=== PATIENT | female | born 1945 | race Caucasian/White ===

== ENCOUNTER 2017-11-04 14:45 | Emergency (ER) | payer MEDICARE, SELFPAY ==
[2017-11-04 14:46] VITALS: BP 154/92; PULSE 77; RESP 16; TEMP 36.6; O2SAT 98; BMI 28.7
--- NOTE | 2017-11-04 14:58 | RAD_ITS ---
STUDY: X-RAY - THORACIC SPINE REASON FOR EXAM: Female, 72 years old. Pain following a fall. TECHNIQUE: 4 view(s) of the thoracic spine were obtained. COMPARISON: None. FINDINGS: Normal kyphosis of the thoracic spine. There is no substantial scoliosis. Normal thoracic vertebrae and endplates. There is multilevel disc space narrowing of the thoracic spine. The soft tissue structures are unremarkable. RAD/Thoracic Spine 3 Views IMPRESSION: Multilevel disc space narrowing. No evidence of acute compression fracture. Electronically Signed: Hosea Ram MD at 15:49 EDT Tel [phone], Service support ,
--- NOTE | 2017-11-04 14:58 | ED.VISSUMM ---
- ER Visit Summary Date of Service: 11/04/17 Chief Complaint: Fall History of Present Illness: The patient is a 72 F presenting after fall. Patient states she was reaching up to fill a bird feeder and she fell backwards. She landed on her lower back. She denies hitting her head. Denies loss of consciousness. She complains of low back pain. She has been able to ambulate since the fall. She denies other complaints. Physical Examination: Vitals are stable. Patient is afebrile. Alert no acute distress. HEENT exam is unremarkable. Neck is nontender Lungs are clear and equal bilaterally. Heart is regular rate and rhythm. Abdomen is soft nontender nondistended. Back: thoracic and lumbar diffuse tenderness with no step off Extremities are unremarkable. Skin is warm and dry. No focal neurologic deficit. Remainder of exam is unremarkable. Emergency Department Course and Treatment: Xray of thoracic and lumbar spine show no acute process. Patient was given Tylenol. She is advised to follow-up with her primary care physician. Advised return to ED for worsening complaints. Disposition: Discharge home Impression: Thoracic and lumbar strain status post fall This note was generated with [employer] dictation software. It may contain incorrect words, spelling, and punctuation that were not noted in review of the chart prior to signing ED Disposition - Plan for ED Patient: Disposition: Home or Assisted Living Chief Complaint: Fall Instructions: ED Mechanical Fall Referrals: Jarek Alvarez MD [Primary Care Provider] -
--- NOTE | 2017-11-04 15:21 | RAD_ITS ---
STUDY: X-RAY - LUMBAR SPINE REASON FOR EXAM: Female, 72 years old. Pain following a fall. TECHNIQUE: 3 view(s) of the lumbar spine were obtained. COMPARISON: None FINDINGS: Normal lumbar lordosis. There is a levoscoliosis of the lumbar spine. There is a normal alignment of the vertebrae. There is multilevel endplate spondylosis of the lumbar vertebrae. There is multi-level degenerative disc disease with multi-level disc space narrowing. Facet joint osteoarthritis. There is atherosclerotic calcification of the abdominal aorta without a demonstrated aneurysm. RAD/Lumbar Spine 2 or 3 Views IMPRESSION: Degenerative changes of the spine, as detailed above. Electronically Signed: Hosea Ram MD at 15:49 EDT Tel [phone], Service support ,
--- NOTE | 2017-11-04 15:59 | ED.DEP ---
ED Disposition - Plan for ED Patient: Chief Complaint: Fall Instructions: ED Mechanical Fall Referrals: Jarek Alvarez MD [Primary Care Provider] -
[2017-11-04] MEDS: Acetaminophen 500 MG Tablet 1000 MG PO (16:29)
[2017-11-04 16:32] VITALS: BP 157/89; PULSE 81; RESP 20; O2SAT 100
== END 2017-11-04 16:46 | disposition home or self-care (01) ==
PROVIDERS: Emergency Provider Emergency Medicine; Family Provider Family Medicine; PCP Family Medicine
DX: S29.012A Strain of muscle and tendon of back wall of thorax, initial encounter (principal); S39.012A Strain of muscle, fascia and tendon of lower back, initial encounter; W18.30XA Fall on same level, unspecified, initial encounter; Y93.89 Activity, other specified; Y92.008 Other place in unspecified non-institutional (private) residence as the place of occurrence of the external cause; Y99.8 Other external cause status
CPT/HCPCS: 72072; 72100; 99283

== ENCOUNTER 2017-11-06 09:37 | Inpatient (IN) | payer MEDICARE, SELFPAY ==
[2017-11-06 09:38] VITALS: BP 127/88; PULSE 101; RESP 16; TEMP 36.6; BMI 29.9
--- NOTE | 2017-11-06 10:22 | CT_ITS ---
STUDY: CT LUMBAR SPINE WITHOUT CONTRAST REASON FOR EXAM: Female, 72 years old. FALL 2 DAYS AGO, BACK PAIN, LOSS OF BLADDER CONTROL, NAUSEA, WEAKNESS RADIATION DOSAGE (If Supplied By Facility): CTDIvol = ( 17.42 ) mGy, DLP = ( 471.33 ) mGycm TECHNIQUE: The patient was scanned in a multi detector CT scanner. High resolution transaxial imaging was performed. Images were obtained from to . Sagittal and coronal images were reconstructed. Individualized dose optimization techniques were used for this CT. COMPARISON: None FINDINGS: There is straightening of the normal lumbar lordosis. There is moderate anterior endplate depression at T12 with cortical step-off and minimal paraspinal infiltration, consistent with acute fracture. There is minimal retropulsion of the inferior posterior endplate without significant central canal stenosis. There is multilevel endplate spondylosis of the lumbar vertebrae. There is multi-level degenerative disc disease with multi-level disc space narrowing. Findings are most prominent at L2/L3 with severe disc space narrowing and endplate spondylosis. CT/Spine Lumbar without Contrast IMPRESSION: Acute moderate fracture at T12 with minimal retropulsion. Further evaluation with MRI can be obtained. Electronically Signed: Ru Del Rosario MD at 11:54 EDT Tel , Service support ,
[2017-11-06 10:31] LABS: Absolute Lymphocyte Count 1.35 X10^3/ul (0.83-4.51); Basophil# 0.05 X10^3/uL; Basophil% 0.4 % (0-1); Eosinophil# 0.06 X10^3/uL; Eosinophils% 0.5 % (0-5); Hematocrit 45.3 % (37-47); Hemoglobin 15.5 g/dl (12.0-15.0); Lymphocyte # 1.35 X10^3/ul (4.0); Lymphocyte % 11.2 % (19-41); Mean Corp Hgb Conc 34.2 g/gl (32-36); Mean Corpuscular Hgb 29.8 pg (27.0-32.0); Mean Corpuscular Volume 87.1 fL (81-99); Mean Platelet Vol. 9.5 fl (6.2-12.0); Monocyte# 1.47 X10^3/uL; Monocyte% 12.2 % (0-10); POSITIVE COUNT NO; POSITIVE DIFFERENTIAL NO; POSITIVE MORPHOLOGY NO; Platelet Count 400 K/mm3 (150-450); RBC Distribution Width CV 14.4 % (11.6-14.6); RBC Distribution Width SD 45.9 fl (35.1-43.9)
[2017-11-06] MEDS: 0.9% Normal Saline 1,000 ML 1000 ML IV (10:39)
[2017-11-06] MEDS: proMETHazine 25 MG/ML Syringe 6.25 MG IV (10:39)
[2017-11-06] MEDS: Morphine 4 MG/ML Syringe IV (10:39)
[2017-11-06 10:41] LABS: Anion Gap 10 (5-15); BUN 19 mg/dL (7-18); BUN/Creat Ratio 20.4 RATIO (10-20); Calcium,Total 9.2 mg/dL (8.5-10.1); Chloride 103 mmol/L (98-107); Creatinine, Serum 0.93 mg/dL (0.55-1.02); EST Glomerular Filtration Rate 63 mL/min (>60); Est Glom Filt Rate - Afr Amer 76 mL/min (>60); Glucose 105 mg/dL (74-106); Potassium 3.4 mmol/L (3.5-5.1); Sodium Level 138 mmol/L (136-145)
[2017-11-06 10:47] LABS: Red Blood Cells-Urine 0 SEEN /hpf (0-5); Squamous Epithelial Cells - UA 0 SEEN /hpf (5-10)
[2017-11-06 10:49] LABS: Color, Urine Yellow (Yellow); Glucose, Dipstick Normal (Normal); Ketone-Dipstick 50 mg/dl (Negative); Leukocyte Esterase-Dipstick 100 /ul (Negative); Nitrite-Dipstick Negative (Negative); Occult Blood-Urine 10 /ul (Negative); Protein-Dipstick 15 mg/dl (Negative); Urine Bilirubin Dipstick Negative (Negative); Urine Clarity Sl. Cloudy (Clear); Urine Urobilinogen Normal (Normal)
[2017-11-06 10:55] LABS: Bacteria 1+ /hpf (None Seen); Hyaline Cast 0-5 SEEN /lpf (0-5); Mucous, Urine RARE /hpf (<or=2+); White Blood Cells 0-5 SEEN /hpf (0-5)
[2017-11-06 12:30] VITALS: BP 143/94; PULSE 93; RESP 16; O2SAT 94
--- NOTE | 2017-11-06 12:46 | ED.VISSUMM ---
- ER Visit Summary Date of Service: 11/06/17 Chief Complaint: [] Back pain History of Present Illness: The patient is a 72 F [] complaining of back pain. She was reportedly seen in this emergency department 2 days ago after mechanical fall. She struck her low back and denies hitting her head. She had negative thoracic and lumbar x-rays and was discharged home with instructions to take Tylenol for pain. She reports pain has worsened in the last 2 days. She reports difficulty ambulating. She reports the pain has gotten so bad she is had significant decrease in p.o. intake and feels dehydrated. She reports Tylenol is not improving her pain. She denies headache or neck pain and reports that she did not hit her head during her fall. She denies saddle anesthesia or incontinence. She is reporting increased urgency to urinate. Denies fecal incontinence. Physical Examination: [] Afebrile, vital signs stable. Elderly female in no acute distress. Head is normocephalic, atraumatic. Neck exam shows no midline C-spine tenderness or step-off. Cardiovascular exam is regular rate and rhythm. Lungs are clear to auscultation. Abdomen is soft and nontender. Back exam reveals thoracic and lumbosacral tenderness in the midline without step-off. Pelvis is stable. There is no lower extremity edema or injury. Test Results: [] CBC, BMP are within normal limits. Urinalysis is negative. CT of the lumbosacral spine reveals a T12 fracture acutely with slight fragment retropulsion. Emergency Department Course and Treatment: [] She was given morphine, Phenergan, normal saline bolus for symptom relief. On serial exam she had improvement of symptoms however was still complaining of discomfort and difficulty with ambulation. She was able to ambulate with assistance to provide us a urine specimen. Case discussed with the hospitalist who will admit the patient for further evaluation and likely MRI. Treatment Plan: [] Admission to medical floor. Disposition: [] Admission, stable. Impression: [] Acute thoracic spinal fracture This note was generated with [employer] dictation software. It may contain incorrect words, spelling, and punctuation that were not noted in review of the chart prior to signing ED Disposition - Plan for ED Patient: Chief Complaint: Back Referrals: Jarek Alvarez MD [Primary Care Provider] -
[2017-11-06 13:54] VITALS: BP 141/92; PULSE 95; RESP 16; O2SAT 96
[2017-11-06 14:00] VITALS: BP 141/92; PULSE 95; RESP 16; O2SAT 96
--- NOTE | 2017-11-06 14:00 | CASEMGMT ---
Social Work Note In to complete initial assessment as pt will be admitted. Introduced self and role at [facility]. The pt reports to live alone in a two-story home with a flight of stairs to the bedroom and bathroom on the second level. States that she typically does not have access issues, but does now with her back injury. Reports to have been crawling up her steps the last few days. DME consists of a walker, cane and shower chair which she obtained after a R Hip Replacement in 2010. She does not use this equipment at baseline. Pt reports to be independent with care and still drives. Does not have any family that lives locally, but has two friends, Madelyn and Shar Salomon, who she identifies as her primary supports. Pt denies mental health diagnoses, and denies substance abuse. She has been at [facility] following her hip surgery. At this time she is unsure of discharge needs. Made aware that PT/OT will evaluate on the floor and RN CM or SW will assist with safe discharge planning. Crystal Tyler, NURSING SPECIALIST, SPORTS BOOK WRITER
[2017-11-06 14:15] VITALS: BMI 28.8
[2017-11-06 14:24] VITALS: BP 155/102; PULSE 87; RESP 16; TEMP 36.8; O2SAT 95
--- NOTE | 2017-11-06 14:44 | PCA ---
Spoke with Selam at Dr. Alvarez's office, [facility] regarding pt updated med list. Selam stated she will fax one over.
--- NOTE | 2017-11-06 14:45 | PCM.HP.STD ---
Problem List (1) Compression fracture Status: Acute (2) Debility Status: Chronic (3) HTN (hypertension) Status: Chronic (4) Osteopenia Status: Acute History of Present Illness Date of Admission: 11/06/17 Chief Complaint: Back pain The patient is a 72 year old F with a hx of osteopenia and htn who presented to the ER today for back pain since falling on friday, 2 days ago. She states that she was in her backyard and lost balance, falling backwards, flat onto her back. She described a breaking sensation and developed severe 10/10 midline back pain over the mid-low back. She came to the ER and had xrays which did not find a fracture and was sent home and instructed only to take tylenol. This did not work and her back pain worsened. She was able to ambulate with a cane, and is still able to. She denies foot or leg weakness, and has no numbness or tingling. Her symptoms became unbearable and she returned to the ER today. She had a CT of the lumbar spine which demonstrated a T12 compression fracture. She does have a hx of osteopenia confirmed by a prior dexa scan. She takes vitamin D and calcium. She was recently treated with steroids by her orthopod last week for right sided lumbar radiculitis. This is no longer present and she denies any radicular pain from her lower back into her legs. She has not moved her bowels in several days.[] Past Medical History Past Medical History (Chronic Problems): Chronic Problems Debility (Chronic) HTN (hypertension) (Chronic) Allergies oxycodone [From Percocet] Adverse Reaction (Verified 11/06/17 09:42) Upset Stomach sulfamethoxazole [From Bactrim] Adverse Reaction (Verified 11/06/17 09:42) Upset Stomach trimethoprim [From Bactrim] Adverse Reaction (Verified 11/06/17 09:42) Upset Stomach Home Medications: Ambulatory Orders Medication Instructions Recorded Docusate Sodium [Stool Softener] 50 mg PO QHS 11/06/17 Lisinopril/Hydrochlorothiazide 1 each PO DAILY 11/06/17 [Zestoretic 20-12.5 mg Tablet] Psyllium [Metamucil] 1 packet PO DAILY 11/06/17 Surgical History: hysterectomy, total hip arthroplasty - right, tonsillectomy Psychiatric History: No pertinent psych hx 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 Denies: Abdominal Pain, Nausea, Vomiting Genitourinary: Denies: Dysuria Musculoskeletal: Reports: Back Pain. Denies: Joint Pain, Joint Tenderness Skin: Denies: Rash, Wounds Neurological: Denies: Numbness, Tingling, Focal weakness Psychiatric: Denies: Anxiety, Depression, Homicidal Ideations, Suicidal Ideations Hematologic/ Lymphatic: Denies: Easy Bruising, Easy Bleeding VTE Information - Inpt Only VTE Present on Admission: No VTE Mechan Device Prophylaxis: SCD's VTE Pharm Prophylaxis ordered?: Yes Patient Problems: Active and Suspected Problems Compression fracture (Acute) Osteopenia (Acute) - Physical Exam General: Alert, Oriented x3, Cooperative HEENT: Atraumatic, PERRLA, EOMI, Normocephalic Neck: Supple, No JVD, Negative Carotid Bruits Lungs: Clear to auscultation, Normal air movement Cardiovascular: Regular rate, No murmurs Abdomen: Bowel Sounds Present, Soft, Non Tender Extremities: No edema, Capillary Refill Less than 3 Seconds Skin: No rashes, No breakdown Musculoskeletal: No Tenderness to Palpation of Joints or Extremities, Tenderness - mid back Neurological: Cranial nerves II-XII grossly intact, - - no numbness or tingling BL legs, feet Psych/Mental Status: Normal Affect, Appropriate Vital Signs Temp Pulse Resp BP Pulse Ox 98.2 F 87 16 155/102 H 95 11/06/17 14:24 11/06/17 14:24 11/06/17 14:24 11/06/17 14:24 11/06/17 14:24 Oxygen Delivery Method Room Air Weight: 64.6 kg Body Mass Index (BMI) 28.8 Assessment/Plan Active and Suspected Problems Compression fracture (Acute) Osteopenia (Acute) 1. Acute T12 compression fracture 2/2 mechanical fall 2 days prior also complicated by hx of osteopenia - PTOT, pain control. Will advise outpatient follow up with Dr. Cage for possible kyphoplasty. Continue VitD/Calcium. Check Vit D level to see if dose is appropriate. Prior Dexa - I do not see a record of this in our system - defer to PCP. 2. Debility 2/2 above - she is still able to ambulate. PTOT for home going needs. 3. Hypokalemia - mild, receiving 2L IV ringers with 10meq K each, check AM BMP. 4. Constipation - added prn meds. Will likely worsen with opiates. 5. HTN - Lisinopril. 6. Mild dehydration - hold hctz. Fluids as ordered. 7. Mild leukocytosis - likely 2/2 acute stress response, will recheck CBC in AM. I doubt any infectious etiology. UA is borderline. She did have one episode of incontinence due to not being able to get out of bed quickly from the back pain, but denies dysuria. 8. GERD - PPI DVT ppx: SCDs/Heparin DC planning: depending on her ability to work with PTOT This patient was seen by Joseph Mitchell PA-C under the supervision of Doctor Ruiz.
[2017-11-06 14:46] VITALS: BMI 28.8
[2017-11-06] MEDS: Acetaminophen 500 MG Tablet 1000 MG PO ×2 (16:36→22:13)
[2017-11-06] MEDS: 0.9% NaCl Peripheral Flush Adult/Peds IV (16:37)
[2017-11-06] MEDS: Calcium Carb/Vitamin D 1 TABLET Tablet PO (22:13)
[2017-11-06] MEDS: Psyllium 1 PACKET PO (22:14)
[2017-11-06 22:24] VITALS: BP 110/58; PULSE 95; RESP 18; TEMP 37.2; O2SAT 95
[2017-11-07 02:00] VITALS: BP 143/89; PULSE 75; RESP 16; TEMP 36.6; O2SAT 94
[2017-11-07] MEDS: Acetaminophen 500 MG Tablet 1000 MG PO ×3 (05:23→22:31)
[2017-11-07 07:42] LABS: Absolute Lymphocyte Count 2.26 X10^3/ul (0.83-4.51); Absolute Neutrophil Count 4.5 X10^3/uL (2.0-7.7); Basophil# 0.04 X10^3/uL; Basophil% 0.5 % (0-1); Eosinophil# 0.13 X10^3/uL; Eosinophils% 1.6 % (0-5); Hematocrit 39.5 % (37-47); Hemoglobin 13.6 g/dl (12.0-15.0); Lymphocyte # 2.26 X10^3/ul (4.0); Lymphocyte % 27.5 % (19-41); Mean Corp Hgb Conc 34.4 g/gl (32-36); Mean Corpuscular Hgb 30.2 pg (27.0-32.0); Mean Corpuscular Volume 87.8 fL (81-99); Mean Platelet Vol. 9.6 fl (6.2-12.0); Monocyte# 1.23 X10^3/uL; Neutrophil # 4.46 X10^3/uL (2.7-7.7); Neutrophil % 54.2 % (47-70); POSITIVE COUNT NO; POSITIVE DIFFERENTIAL NO; POSITIVE MORPHOLOGY NO; Platelet Count 349 K/mm3 (150-450); RBC Distribution Width CV 14.8 % (11.6-14.6); RBC Distribution Width SD 47.2 fl (35.1-43.9); White Blood Count 8.2 K/mm3 (4.4-11.0)
[2017-11-07 08:12] LABS: Anion Gap 8 (5-15); BUN 15 mg/dL (7-18); BUN/Creat Ratio 18.9 RATIO (10-20); Calcium,Total 8.4 mg/dL (8.5-10.1); Chloride 107 mmol/L (98-107); Creatinine, Serum 0.79 mg/dL (0.55-1.02); EST Glomerular Filtration Rate 76 mL/min (>60); Est Glom Filt Rate - Afr Amer 92 mL/min (>60); Estimated Creatinine Clearance 52.62 ml/min; Glucose 84 mg/dL (74-106); Potassium 4.1 mmol/L (3.5-5.1); Sodium Level 140 mmol/L (136-145)
[2017-11-07 09:21] VITALS: BP 143/90; PULSE 87; RESP 18; TEMP 36.6; O2SAT 95
[2017-11-07] MEDS: Pantoprazole Sodium 20 MG Tablet PO (09:26)
[2017-11-07] MEDS: Senna/Docusate Sodium 1 Tablet PO (09:26)
[2017-11-07] MEDS: Magnesium Hydroxide 30 ML UDC PO (09:26)
[2017-11-07] MEDS: Multivitamins,Ther W-Minerals Tablet 1 TABLET PO (09:26)
[2017-11-07] MEDS: Calcium Carb/Vitamin D 1 TABLET Tablet PO ×2 (09:27→22:32)
[2017-11-07] MEDS: Lisinopril 20 MG Tablet PO (09:27)
[2017-11-07] MEDS: oxyCODONE 5 MG Tablet PO ×3 (10:20→18:23)
[2017-11-07 11:57] LABS: Vitamin D,25 Hydroxy 33.2 ng/mL (29.95-100.01)
[2017-11-07] MEDS: Polyethylene Glycol 3350 17 GM PACKET PO (12:18)
--- NOTE | 2017-11-07 12:52 | PCM.PROGNOTE ---
Patient Problems: Active and Suspected Problems Compression fracture (Acute) Osteopenia (Acute) Subjective: Back pain severe 8/10 this AM, however patient was trying to only take tylenol. She has been up in the chair and has had significant relief since this AM. She is agreeable to kyphoplasty. No weakness or numbness LE. Pain is still centralized over the spine. Still no BM and pt is requesting additional agent for constipation. - Physical Exam General: Alert, Oriented x3, Cooperative HEENT: Atraumatic, PERRLA, EOMI, Normocephalic Neck: Supple, No JVD, Negative Carotid Bruits Lungs: Clear to auscultation, Normal air movement Cardiovascular: Regular rate, No murmurs Abdomen: Bowel Sounds Present, Soft, Non Tender Extremities: No edema, Capillary Refill Less than 3 Seconds Skin: No rashes, No breakdown Musculoskeletal: No Tenderness to Palpation of Joints or Extremities Neurological: Cranial nerves II-XII grossly intact Psych/Mental Status: Normal Affect, Appropriate, Alert and oriented to time, place, person, mood and affect Vital Signs Temp Pulse Resp BP Pulse Ox 97.8 F 87 18 143/90 H 95 11/07/17 09:21 11/07/17 09:21 11/07/17 09:21 11/07/17 09:21 11/07/17 09:21 Oxygen Delivery Method Room Air Weight: 64.6 kg Body Mass Index (BMI) 28.8 Intake and Output for Last 24 Hours 11/05/17 11/06/17 11/07/17 23:59 23:59 23:59 Intake Total 3425 / 3425 Output Total 700 / 700 Balance 2725 / 2725 Laboratory Tests Past 24 Hrs 11/06/17 11/07/17 11/07/17 15:07 07:20 07:20 WBC 8.2 RBC 4.50 Hgb 13.6 Hct 39.5 MCV 87.8 MCH 30.2 MCHC 34.4 RDW 14.8 H RDW Differential 47.2 H Plt Count 349 MPV 9.6 Immature Gran % (Auto) 1.200 H Neut % (Auto) 54.2 Lymph % (Auto) 27.5 [place] % (Auto) 15.0 H Eos % (Auto) 1.6 Baso % (Auto) 0.5 Absolute Neuts (auto) 4.5 Absolute Lymphs (auto) 2.26 Total Counted Not Reportable Sodium 140 Potassium 4.1 Chloride 107 Carbon Dioxide 25.0 Anion Gap 8 BUN 15 Creatinine 0.79 Estim Creat Clear Calc 52.62 Est GFR (MDRD) Af Amer 92 Est GFR (MDRD) Non-Af 76 BUN/Creatinine Ratio 18.9 Glucose 84 Calcium 8.4 L Vitamin D 25-Hydroxy 33.2 Medical Necessity - Tobacco Use Smoking Status: Former smoker Tobacco Use: Non-smoker Assessment/Plan Active and Suspected Problems Compression fracture (Acute) Osteopenia (Acute) 1. Acute T12 compression fracture 2/2 mechanical fall 2 days prior also complicated by hx of osteopenia - Dr. Cage has been consulted and she will have Kyphoplasty Friday. PTOT, pain control. Will advise outpatient follow up with Dr. Cage for possible kyphoplasty. Continue VitD/Calcium. Check Vit D level to see if dose is appropriate. Prior Dexa - I do not see a record of this in our system - defer to PCP. 2. Debility 2/2 above - she is still able to ambulate. PTOT for home going needs. 3. Hypokalemia - mild, receiving 2L IV ringers with 10meq K each, check AM BMP. 4. Constipation - Still no BM. Chronic, will likely worsen with opiates. 5. HTN - Lisinopril. 6. Mild dehydration - improved. 7. Mild leukocytosis - likely 2/2 acute stress response. Resolved. 8. GERD - PPI DVT ppx: SCDs/Heparin DC planning: depending on her ability to work with PTOT This patient was seen by Joseph Mitchell PA-C under the supervision of Doctor Ruiz.
[2017-11-07] MEDS: Meloxicam 15 MG Tablet PO (13:38)
[2017-11-07] MEDS: Bisacodyl 10 MG Suppository RECTAL (15:47)
[2017-11-07 15:59] VITALS: BP 106/70; PULSE 79; RESP 16; TEMP 36.6; O2SAT 94
[2017-11-07 22:38] VITALS: BP 146/89; PULSE 80; RESP 18; TEMP 36.6; O2SAT 93
[2017-11-08 02:46] VITALS: BP 157/84; PULSE 75; RESP 18; TEMP 36.7; O2SAT 94
[2017-11-08] MEDS: Acetaminophen 500 MG Tablet 1000 MG PO ×3 (05:49→22:20)
[2017-11-08] MEDS: Multivitamins,Ther W-Minerals Tablet 1 TABLET PO (08:12)
[2017-11-08] MEDS: Meloxicam 15 MG Tablet PO (08:13)
[2017-11-08] MEDS: Calcium Carb/Vitamin D 1 TABLET Tablet PO ×2 (08:13→22:20)
[2017-11-08] MEDS: Polyethylene Glycol 3350 17 GM PACKET PO (08:13)
[2017-11-08] MEDS: Lisinopril 20 MG Tablet PO ×2 (08:13→12:22)
[2017-11-08 08:45] VITALS: BP 160/100; PULSE 68; RESP 18; TEMP 36.9; O2SAT 93
[2017-11-08] MEDS: oxyCODONE 5 MG Tablet PO ×2 (09:00→17:56)
[2017-11-08] MEDS: Ondansetron 4 MG/2 ML Vial IV (09:02)
--- NOTE | 2017-11-08 13:38 | PCM.PROGNOTE ---
Patient Problems: Active and Suspected Problems Compression fracture (Acute) Osteopenia (Acute) Subjective: Pt ambulating in the [facility] this AM with PT and a walker. Doing well. Pain has improved to 2/10. Still no numbness/tingling/radicular pain/weakness. She still has had no BM with multiple orals and suppository, and feels very constipated. Will try soap suds enema today. - Physical Exam General: Alert, Oriented x3, Cooperative HEENT: Atraumatic, PERRLA, EOMI, Normocephalic Neck: Supple, No JVD, Negative Carotid Bruits Lungs: Clear to auscultation, Normal air movement Cardiovascular: Regular rate, No murmurs Abdomen: Bowel Sounds Present, Soft, Non Tender Extremities: No edema, Capillary Refill Less than 3 Seconds Skin: No rashes, No breakdown Musculoskeletal: No Tenderness to Palpation of Joints or Extremities Neurological: Cranial nerves II-XII grossly intact Psych/Mental Status: Normal Affect, Appropriate, Alert and oriented to time, place, person, mood and affect Vital Signs Temp Pulse Resp BP Pulse Ox 98.4 F 68 18 160/100 H 93 11/08/17 08:45 11/08/17 08:45 11/08/17 08:45 11/08/17 08:45 11/08/17 08:45 Oxygen Delivery Method Room Air Weight: 64.6 kg Body Mass Index (BMI) 28.8 Intake and Output for Last 24 Hours 11/06/17 11/07/17 11/08/17 23:59 23:59 23:59 Intake Total 3425 / 3425 1877 / 1877 Output Total 700 / 700 600 / 600 Balance 2725 / 2725 1277 / 1277 Medical Necessity - Tobacco Use Smoking Status: Former smoker Tobacco Use: Non-smoker Assessment/Plan Active and Suspected Problems Compression fracture (Acute) Osteopenia (Acute) 1. Acute T12 compression fracture 2/2 mechanical fall 2 days prior also complicated by hx of osteopenia - Dr. Cage has been consulted and she will have Kyphoplasty Friday. PTOT, pain control. Continue VitD/Calcium. Vit D level is on low side of normal. Should have outpatient follow up to assess therapeutic efficacy. 2. Debility 2/2 above - ambulating well. Plans to return home by herself. PTOT for home going needs. 3. Hypokalemia - resolved. 4. Constipation - Still no BM. Chronic. Continue current orals + soap suds today. Good bowel sounds. + flatus. 5. HTN - poorly controlled. Lisinopril increased. 6. GERD - PPI DVT ppx: SCDs/Heparin DC planning: ambulating well. Wants to go home by herself. This patient was seen by Joseph Mitchell PA-C under the supervision of Doctor Ruiz.
[2017-11-08 16:00] VITALS: BP 90/50; PULSE 70; RESP 18; TEMP 36.9; O2SAT 94
[2017-11-08 22:00] VITALS: BP 123/56; PULSE 74; RESP 16; TEMP 36.9; O2SAT 93
[2017-11-09 03:32] VITALS: BP 158/87; PULSE 74; RESP 16; TEMP 36.6; O2SAT 94
[2017-11-09] MEDS: Acetaminophen 500 MG Tablet 1000 MG PO ×3 (06:45→21:35)
[2017-11-09] MEDS: Multivitamins,Ther W-Minerals Tablet 1 TABLET PO (08:20)
[2017-11-09 08:21] VITALS: BP 155/85; PULSE 77; RESP 18; TEMP 36.8; O2SAT 93
[2017-11-09] MEDS: Lisinopril 40 MG Tablet PO (10:56)
[2017-11-09] MEDS: Meloxicam 15 MG Tablet PO (10:56)
[2017-11-09] MEDS: Calcium Carb/Vitamin D 1 TABLET Tablet PO ×2 (10:56→21:34)
[2017-11-09] MEDS: Polyethylene Glycol 3350 17 GM PACKET PO (11:00)
--- NOTE | 2017-11-09 11:11 | NURSING ---
Verified with denise Lombardo for pt to have Mobic today. Administered per order.
[2017-11-09] MEDS: Electrolyte Solution/Peg's 4000 ML 2000 ML PO (12:53)
[2017-11-09] MEDS: oxyCODONE 5 MG Tablet PO (12:59)
[2017-11-09 14:00] VITALS: BP 153/83; PULSE 78; RESP 16; TEMP 36.4; O2SAT 94
--- NOTE | 2017-11-09 14:43 | PCM.PROGNOTE ---
Patient Problems: Active and Suspected Problems Compression fracture (Acute) Osteopenia (Acute) Subjective: Pts pain is stable. Did not ambulate today as of this morning but did well yesterday. She is still agreeable to kyphoplasty tomorrow. Still no BM. Starting golytely today. No nausea or vomiting this AM. - Physical Exam General: Alert, Oriented x3, Cooperative HEENT: Atraumatic, PERRLA, EOMI, Normocephalic Neck: Supple, No JVD, Negative Carotid Bruits Lungs: Clear to auscultation, Normal air movement Cardiovascular: Regular rate, No murmurs Abdomen: Soft, Non Tender, Bowel Sounds Not Present Extremities: No edema, Capillary Refill Less than 3 Seconds Skin: No rashes, No breakdown Musculoskeletal: No Tenderness to Palpation of Joints or Extremities Neurological: Cranial nerves II-XII grossly intact Psych/Mental Status: Normal Affect, Appropriate, Alert and oriented to time, place, person, mood and affect Vital Signs Temp Pulse Resp BP Pulse Ox 98.2 F 77 18 155/85 H 93 11/09/17 08:21 11/09/17 08:21 11/09/17 08:21 11/09/17 08:21 11/09/17 08:21 Oxygen Delivery Method Room Air Weight: 64.6 kg Body Mass Index (BMI) 28.8 Intake and Output for Last 24 Hours 11/07/17 11/08/17 11/09/17 23:59 23:59 23:59 Intake Total 3425 / 3425 1877 / 1877 1007 / 1007 Output Total 700 / 700 900 / 900 1400 / 1400 Balance 2725 / 2725 977 / 977 -393 / -393 Medical Necessity - Tobacco Use Smoking Status: Former smoker Tobacco Use: Non-smoker Assessment/Plan Active and Suspected Problems Compression fracture (Acute) Osteopenia (Acute) 1. Acute T12 compression fracture 2/2 mechanical fall 2 days prior also complicated by hx of osteopenia - Dr. Cage has been consulted and she will have Kyphoplasty tomorrow. PTOT, pain control. Continue VitD/Calcium. Vit D level is on low side of normal. Should have outpatient follow up to assess therapeutic efficacy. 2. Debility 2/2 above - ambulating well. Plans to return home by herself. PTOT for home going needs. 3. Hypokalemia - resolved. 4. Constipation - Still no BM. G[place]teley until 3 BM's. Continue other regimen. 5. HTN - Lisinopril was increased. BP fluctuant. 6. GERD - PPI DVT ppx: SCDs/Heparin DC planning: ambulating well. Wants to go home by herself. This patient was seen by Joseph Mitchell PA-C under the supervision of Doctor Ruiz.
--- NOTE | 2017-11-09 15:18 | NURSING ---
Pt started Golytely around 1300. Pt tolerating well so far. Per Dr Ruiz, continue to give the prep until pt has 3-4 bowel movements. No results yet.
[2017-11-09] MEDS: Ondansetron 4 MG/2 ML Vial IV (18:17)
[2017-11-09] MEDS: 0.9% NaCl Peripheral Flush Adult/Peds IV (18:17)
--- NOTE | 2017-11-09 19:45 | NURSING ---
pt on assessment was in severe pain, rating it a 10/10. lower abd pain that radiated to the upper mid abd/chest area with pain to the upper back between her shoulders. pt is very anxious thinking she is having a heart attack. pt was given zofran per the other shift an hour earlier, still is c/o nausea. states she is miserable. call placed to the hospitalist, kub, ekg, labs, and meds ordered.
[2017-11-09 20:00] VITALS: BP 154/99; PULSE 89; RESP 16; TEMP 36.6; O2SAT 94
--- NOTE | 2017-11-09 20:13 | RAD_ITS ---
STUDY: X-RAY - ABDOMEN/PELVIS REASON FOR EXAM: Female, 72 years old. Constipation. Lower abdominal pain TECHNIQUE: AP supine and upright views of the abdomen and pelvis. COMPARISON: None. FINDINGS: Normal visualized lung bases. There is a moderate amount of colonic fecal material. There is no demonstrated free abdominal air. The visualized liver, spleen and kidneys are grossly normal in size and morphology. Normal soft tissue structures. There are diffuse degenerative changes of the visualized lumbar spine. RAD/Abd Decub and/or Erect(Portabl IMPRESSION: There is a moderate amount of colonic fecal material. Electronically Signed: Alina Hebert MD at 1:14 EDT Tel , Service support ,
--- NOTE | 2017-11-09 20:13 | EKG12_ITS ---
Test Reason : Blood Pressure : / mmHG Vent. Rate : 089 BPM Atrial Rate : 089 BPM P-R Int : 150 ms QRS Dur : 090 ms QT Int : 362 ms P-R-T Axes : 044 261 010 degrees QTc Int : 440 ms Normal sinus rhythm Right ventricular hypertrophy with repolarization abnormality Abnormal ECG When compared with ECG of 15-MAR-2013 11:50, No significant change was found Confirmed by ZAHIDA RAMÍREZ, STEFANO ([id number]), film editor supervisor DARIUS MEDEL ([id number]) on 11/18/2017 3:28:57 PM Referred By: Confirmed By:STEFANO TEAGUE MD
[2017-11-09] MEDS: proMETHazine 25 MG/ML Syringe 6.25 MG IV (21:03)
[2017-11-09] MEDS: 0.9% Normal Saline 1,000 ML 75 ML IV (21:04)
[2017-11-09] MEDS: LORazepam 2 MG/ML Syringe 0.5 MG IV (21:19)
[2017-11-09] MEDS: Pantoprazole Sodium 20 MG Tablet PO (21:34)
[2017-11-09 22:00] VITALS: PULSE 89; RESP 16
[2017-11-10] VITALS (11 sets, daily range): BP systolic 94–157; BP diastolic 53–91; PULSE 80–99; RESP 16–20; TEMP 36.3–36.9; O2SAT 87–99; BMI 31.1; BMI 28.8
[2017-11-10] MEDS: 0.9% NaCl Peripheral Flush Adult/Peds IV ×3 (02:34→10:46)
[2017-11-10] MEDS: Ondansetron 4 MG/2 ML Vial IV (02:34)
[2017-11-10] MEDS: proMETHazine 25 MG/ML Syringe 6.25 MG IV ×2 (05:54→10:46)
[2017-11-10 06:29] LABS: Partial Thromboplast Time 25.5 Seconds (24.1-36.2)
[2017-11-10] MEDS: Morphine 4 MG/ML Syringe IV (10:45)
--- NOTE | 2017-11-10 13:21 | PCM.PROGNOTE ---
Patient Problems: Active and Suspected Problems Compression fracture (Acute) Osteopenia (Acute) Subjective: Pt developed abdominal pain and nausea last night and became alarmed thinking she may be having a heart attack. She had EKG, troponins, and KUB. The former were negative, and the latter demonstrated constipation. She is very distraught that she has not had a BM yet. She is willing to try more enemas. She feels that the abdominal pain is making her back pain worse. She is still agreeable to kyphoplasty. - Physical Exam General: Alert, Oriented x3, Cooperative HEENT: Atraumatic, PERRLA, EOMI, Normocephalic Neck: Supple, No JVD, Negative Carotid Bruits Lungs: Clear to auscultation, Normal air movement Cardiovascular: Regular rate, No murmurs Abdomen: Bowel Sounds Present, Soft, Non Tender, Hypoactive Bowel Sounds Extremities: No edema, Capillary Refill Less than 3 Seconds Skin: No rashes, No breakdown Musculoskeletal: No Tenderness to Palpation of Joints or Extremities Neurological: Cranial nerves II-XII grossly intact Psych/Mental Status: Normal Affect, Appropriate Vital Signs Temp Pulse Resp BP Pulse Ox 98.4 F 94 18 157/83 H 94 11/10/17 08:35 11/10/17 08:35 11/10/17 08:35 11/10/17 08:35 11/10/17 08:35 Oxygen Flow Rate (L/min) 1 Oxygen Delivery Method Room Air Weight: 70 kg Body Mass Index (BMI) 31.1 Intake and Output for Last 24 Hours 11/08/17 11/09/17 11/10/17 23:59 23:59 23:59 Intake Total 1877 / 1877 1247 / 1247 856 / 856 Output Total 900 / 900 1400 / 1400 400 / 400 Balance 977 / 977 -153 / -153 456 / 456 Laboratory Tests Past 24 Hrs 11/09/17 11/10/17 11/10/17 21:50 01:00 05:40 APTT Troponin I < 0.02 < 0.02 < 0.02 11/10/17 11/10/17 05:40 11:30 APTT 25.5 Troponin I < 0.02 Medical Necessity - Tobacco Use Smoking Status: Former smoker Tobacco Use: Non-smoker Assessment/Plan Active and Suspected Problems Compression fracture (Acute) Osteopenia (Acute) 1. Acute T12 compression fracture 2/2 mechanical fall 2 days prior also complicated by hx of osteopenia - Dr. Cage has been consulted and she will have Kyphoplasty tomorrow. PTOT, pain control. Continue VitD/Calcium. Vit D level is on low side of normal. Should have outpatient follow up to assess therapeutic efficacy. 2. Debility 2/2 above - ambulating well. Plans to return home by herself. PTOT for home going needs. 3. Hypokalemia - resolved. 4. Severe Constipation - Still no BM after receiving soap suds, suppositories, golytely, MoM, senna/docusate. Next step is mineral oil enema. Nursing to notify if this is not effective. 5. HTN - Lisinopril was increased. BP fluctuant. 6. GERD - PPI DVT ppx: SCDs/Heparin DC planning: ambulating well. Wants to go home by herself. This patient was seen by Joseph Mitchell PA-C under the supervision of Doctor Ruiz.
--- NOTE | 2017-11-10 14:30 | RAD_ITS ---
STUDY: X-RAY - THORACIC SPINE REASON FOR EXAM: Female, 72 years old. Kyphoplasty T12. TECHNIQUE: 7 view(s) of the thoracic spine were obtained. COMPARISON: None. FINDINGS: Surgical instrument is visualized within the thoracic vertebral body. Images and trace a control injection of bone glue. Normal thoracic vertebrae and endplates. Normal disc space heights. The soft tissue structures are unremarkable. RAD/Thoracic Spine 2 Views IMPRESSION: Successful kyphoplasty Electronically Signed: Otoniel Resendiz MD at 16:09 EDT , Service support ,
[2017-11-10] MEDS: Bupivacaine Mpf 0.5% 30 ML VIAL (15:11)
[2017-11-10] MEDS: Mineral Oil 1 BOTTLE ENEMA 1 ML RECTAL (18:33)
[2017-11-10] MEDS: Acetaminophen 500 MG Tablet 1000 MG PO (21:31)
[2017-11-10] MEDS: Senna/Docusate Sodium 1 Tablet PO (21:31)
[2017-11-10] MEDS: Magnesium Hydroxide 30 ML UDC PO (21:31)
[2017-11-10] MEDS: Pantoprazole Sodium 20 MG Tablet PO (21:31)
[2017-11-10] MEDS: Calcium Carb/Vitamin D 1 TABLET Tablet PO (21:31)
[2017-11-10] MEDS: 0.9% Normal Saline 1,000 ML 75 ML IV (23:30)
[2017-11-11] VITALS (12 sets, daily range): BP systolic 94–157; BP diastolic 43–83; PULSE 80–96; RESP 16–18; TEMP 35.7–37.1; O2SAT 86–96
[2017-11-11] MEDS: Acetaminophen 500 MG Tablet 1000 MG PO (05:21)
[2017-11-11] MEDS: Magnesium Hydroxide 30 ML UDC PO (09:49)
--- NOTE | 2017-11-11 09:50 | NURSING ---
Pt refusing AM meds due to abdominal discomfort related to constipation. Only PRN MOM given per pt request.
--- NOTE | 2017-11-11 11:12 | PCM.PROGNOTE ---
Patient Problems: Active and Suspected Problems Compression fracture (Acute) Osteopenia (Acute) Subjective: 1 day post kyphoplasty. Pain is better. Her biggest problem now is that she has not had a BM since admission even with enemas, suppositories, MOM and 2 Liters of Golytely. she ambulated in the gonzalez for 700 ft wqith a FWW and did well. Afebrile. Pulse ox on Ra was 86% this AM....not on oxygen at home. Occasional cough. Denies SOB. We have never had a CXR on her at this institution. She is a former smoker. - Physical Exam General: Alert, Oriented x3, Cooperative, - - she is pale HEENT: Atraumatic, PERRLA, EOMI, Normocephalic Oral: Dry Mucosa Neck: Supple, No JVD, No Nodes, Trachea Midline Lungs: Rales - coarse crackles in both bases, even after several deep breaths Cardiovascular: Regular rate, Regular Rhythm, Normal S1, Normal S2, No murmurs, No rub noted, No Gallop Abdomen: Soft, Non Tender, Hypoactive Bowel Sounds, Distended - mild, emerson in the upper abdomen., - - Rectal exam with internal and external hemorrhoids. The external are thrombosed but not painful. The opening is very tight and I had difficulty inserting my finger and it was painful for her. No masses in the rectal vault appreciated. No stool in the rectum Extremities: No cyanosis, No edema Skin: No rashes Neurological: Cranial nerves II-XII grossly intact, Neuro grossly intact Psych/Mental Status: Normal Affect, Appropriate Vital Signs Temp Pulse Resp BP Pulse Ox 98.7 F 92 16 119/71 94 11/11/17 09:27 11/11/17 09:27 11/11/17 09:27 11/11/17 09:27 11/11/17 09:27 Oxygen Flow Rate (L/min) 3 Oxygen Delivery Method Nasal Cannula Weight: 154 lb 5.177 oz Body Mass Index (BMI) 31.1 Intake and Output for Last 24 Hours 11/09/17 11/10/17 11/11/17 23:59 23:59 23:59 Intake Total 1247 / 1247 3758 / 3758 434 / 434 Output Total 1400 / 1400 400 / 400 Balance -153 / -153 3358 / 3358 434 / 434 Laboratory Tests Past 24 Hrs 11/10/17 11:30 Troponin I < 0.02 Medical Necessity - Tobacco Use Smoking Status: Former smoker Tobacco Use: Non-smoker Assessment/Plan Active and Suspected Problems Compression fracture (Acute) Osteopenia (Acute) Impressions 1. admitted with an acute T12 compression fracture due to a fall - She is 1 day post kyphoplasty 2. constipation 3. hx of colon polyps....no colonoscopy for 10 years 4. hemorrhoids with very tight anus/sphincter 5. GERD 6. Hypertension 7. Hypokalemia 8. hypoxic, former smoker, rales in the bases 9. osteopenia CT of the abdomen and pelvis PA and Lat CXR no further laxatives until I see the results of the CT scan Recheck lab today. Code Visit Inpatient E&M: 91479 Subs Hosp L2
--- NOTE | 2017-11-11 11:26 | CT_ITS ---
STUDY: CT ABDOMEN AND PELVIS WITH CONTRAST REASON FOR EXAM: Female, 72 years old. BLOATING, S/P KYPHOPLASTY X 1 DAY RADIATION DOSAGE (If Supplied By Facility): CTDIvol = ( 17.66 ) mGy, DLP = ( 1256.48 ) mGycm TECHNIQUE: Transaxial images were obtained from the dome of the diaphragm to the symphysis pubis with oral contrast. 100 ml of Isovue 300 contrast was administered. Sagittal and coronal images were reconstructed. Individualized dose optimization techniques were used for this CT. COMPARISON: None. FINDINGS: There are atherosclerotic calcifications of visualized coronary arteries. Moderate bilateral pleural effusions. Lower lobe pneumonia. Normal liver. Gallbladder is dilated at 58 mm in diameter. There are no visible calcified gallstones. Findings may suggest hydropic gallbladder. Normal spleen. Normal pancreas. Normal bilateral adrenal glands. Normal right kidney. Normal left kidney. Normal visualized stomach. There is a paralytic ileus of the small intestine with mild gaseous distention. There are multiple colonic diverticula consistent with diverticulosis. There is non-visualization of the appendix. There is mild wall enhancement and distention of the colon. There are calcifications of the abdominal aorta and vascular structures. This is consistent for atherosclerotic disease. There is no abdominal aortic aneurysm. Normal inferior vena cava. Subcentimeter mesenteric lymph nodes. Normal urinary bladder. There is absence of the uterus consistent with a prior hysterectomy. Normal abdominal wall. There are degenerative changes of the osseous structures. Kyphoplasty changes at T12 CT/Abdomen/Pelvis WITH Contrast IMPRESSION: Postoperative small bowel ileus. There is either a mild colitis of the proximal: Gastroenteritis. Moderate bilateral pleural effusions. Lower lobe pneumonia. Gallbladder is dilated at 58 mm in diameter. There are no visible calcified gallstones. Findings may suggest hydropic gallbladder Other findings as above. Electronically Signed: Otoniel Resendiz MD at 18:25 EDT , Service support ,
[2017-11-11 12:37] LABS: Absolute Neutrophil Count 19.8 X10^3/uL (2.0-7.7); Basophil# 0.01 X10^3/uL; Eosinophil# 0.01 X10^3/uL; Hematocrit 38.4 % (37-47); Hemoglobin 12.9 g/dl (12.0-15.0); Lymphocyte % 3.9 % (19-41); Mean Corp Hgb Conc 33.6 g/gl (32-36); Mean Corpuscular Hgb 29.9 pg (27.0-32.0); Mean Corpuscular Volume 88.9 fL (81-99); Monocyte# 2.12 X10^3/uL; Monocyte% 9.2 % (0-10); Neutrophil # 19.83 X10^3/uL (2.7-7.7); Neutrophil % 86.6 % (47-70); Platelet Count 382 K/mm3 (150-450); RBC Distribution Width CV 15.4 % (11.6-14.6); RBC Distribution Width SD 49.2 fl (35.1-43.9); Red Blood Count 4.32 M/mm3 (4.2-5.4)
[2017-11-11 12:47] LABS: BNP,B-Type NATRIURETIC PEPTIDE 28.2 pg/mL (0-100); Differential Indicated SCAN CRITERIA MET; POSITIVE COUNT NO; POSITIVE DIFFERENTIAL YES; POSITIVE MORPHOLOGY NO
[2017-11-11 12:54] LABS: ALB/GLOB Ratio 0.7 RATIO (0.9-2.4); AST(SGOT) 61 U/L (15-37); Alanine Aminotransfer ALT/SGPT 62 U/L (13-56); Albumin, Serum 2.6 g/dL (3.2-5.0); Alkaline Phosphatase 98 U/L (45-117); Anion Gap 7 (5-15); BUN 28 mg/dL (7-18); BUN/Creat Ratio 34.9 RATIO (10-20); Calcium,Total 7.9 mg/dL (8.5-10.1); Chloride 104 mmol/L (98-107); EST Glomerular Filtration Rate 75 mL/min (>60); Est Glom Filt Rate - Afr Amer 90 mL/min (>60); Estimated Creatinine Clearance 71.28 ml/min; Globulin 3.5 g/dL (2.2-4.2); Glucose 103 mg/dL (74-106); Potassium 4.5 mmol/L (3.5-5.1); Protein, Total 6.1 g/dL (6.4-8.2); Sodium Level 137 mmol/L (136-145)
[2017-11-11] MEDS: Ondansetron 4 MG/2 ML Vial IV (13:54)
[2017-11-11] MEDS: 0.9% NaCl Peripheral Flush Adult/Peds IV ×3 (13:54→15:44)
[2017-11-11] MEDS: 0.9% Normal Saline 1,000 ML 75 ML IV (13:55)
[2017-11-11] MEDS: proMETHazine 25 MG/ML Syringe 6.25 MG IV (14:26)
--- NOTE | 2017-11-11 14:33 | RAD_ITS ---
STUDY: X-RAY CHEST REASON FOR EXAM: Female, 72 years old. Hypoxia TECHNIQUE: Frontal and lateral views of the chest. COMPARISON: 10-14-2006 FINDINGS: Chronic appearing increased interstitial lung markings. Small bilateral pleural effusions. Right lower lobe pneumonia. Left lower lobe platelike atelectasis. Normal heart size. Normal mediastinum and meño. Normal visualized pulmonary arteries. There is atherosclerotic calcification of the aortic arch with tortuosity. There are diffuse degenerative changes of the visualized thoracic spine. There is degenerative osteoarthritis of the bilateral shoulders. There is no demonstrated abnormality of the visualized soft tissue structures of the upper abdomen. RAD/Chest PA and Lateral IMPRESSION: Small bilateral pleural effusions. Right lower lobe pneumonia. Left lower lobe platelike atelectasis. Electronically Signed: Otoniel Resendiz MD at 16:13 EDT , Service support ,
--- NOTE | 2017-11-11 15:00 | NURSING ---
pt off unit at this time for CXR and CT of abdomen
[2017-11-11] MEDS: Furosemide 40 MG/4 ML Vial IV (15:43)
[2017-11-11] MEDS: Piperacil/Tazobactam 3.375 GM/50 ML ML IV ×2 (15:43→21:45)
--- NOTE | 2017-11-11 19:10 | CON.PCM_ITS ---
Reason for Consult Date of Consultation: 11/11/17 History of Present Illness: The patient is a 72 year old F with the thoracic vertebral compression fracture with significant back pain and now significant colonic distention. I performed an operative hemorrhoidectomy 3 years previously. The patient noted she was moving her bowels reasonably well with stool softeners and fiber. Since her compression fracture. She is noted increasing abdominal distention decreased stooling. She was admitted for kyphoplasty which she underwent yesterday. Since admission to the hospital, she has not had a bowel movement. She's had multiple oral agents to try to cause a bowel movement including 2 L of GoLYTELY, milk of magnesia, suppositories and enemas. The patient was noting increasing abdominal distention and abdominal discomfort. Her white blood cell count today , one up to 23,000 from 10,[address] scan of the abdomen and pelvis was obtained with IV and oral contrast. I was contacted by Dr. Ruiz prior to the official reading the CT scan which she noted very significant colonic distention. I reviewed the CT scan and between the CT scan and the significant white blood cell count. I had the patient brought down for emergency decompressive colonoscopy and evaluate her colon for ischemic changes. the patient had a large bowel movement upstairs just prior to being brought down for her colonoscopy. The patient underwent emergency decompressive colonoscopy. she had a large liquid bowel movement prior to start of the colonoscopy and the endoscopy suite. Colonoscopy is dictated under separate cover. This demonstrated still a significant amount of liquid stool in the colon with approximately 1200 or so cc of stool being aspirated and likely another thousand plus cc on the bed. The patient was noted to have significant ischemic changes of the transverse colon, worsening the splenic flexure consistent with pressure ischemic necrosis. I placed a resolution clip just distal to the most distal ischemic changes in the event that emergency surgery was required the patient noted significant improvement in her abdominal discomfort post procedure. Laboratory studies and a lactic acid level obtained which demonstrated white blood cell count of 20,000 and a lactic acid level of 1.7. A KUB and decubitus x-ray were obtained which demonstrated still some cecal distention but overall improved gas pattern and no free air. Past Medical History Past Medical History (Chronic Problems): Chronic Problems Debility (Chronic) HTN (hypertension) (Chronic) Allergies oxycodone [From Percocet] Adverse Reaction (Verified 11/06/17 09:42) Upset Stomach sulfamethoxazole [From Bactrim] Adverse Reaction (Verified 11/06/17 09:42) Upset Stomach trimethoprim [From Bactrim] Adverse Reaction (Verified 11/06/17 09:42) Upset Stomach Home Medications: Ambulatory Orders Medication Instructions Recorded Calcium Carbonate/Vitamin D3 1 each PO BID 11/06/17 [Calcium 600-Vit D3 400 Tablet] Cholecalciferol (Vitamin D3) 400 unit PO DAILY 11/06/17 [Vitamin D3] Docusate Sodium [Colace] 100 mg PO QHS 11/06/17 Lisinopril/Hydrochlorothiazide 1 each PO DAILY 11/06/17 [Zestoretic 20-12.5 mg Tablet] Multivits,Ca,Minerals/Iron/FA 1 each PO DAILY 11/06/17 [Women's Daily Formula Caplet] Omeprazole [Prilosec] 20 mg PO DAILY PRN 11/06/17 Psyllium [Metamucil] 1 packet PO QHS 11/06/17 Vit A/Vit C/Vit E/Zinc/Copper 1 each PO DAILY 11/06/17 [Preservision Areds Softgel] Surgical History: hysterectomy, total hip arthroplasty - right, tonsillectomy, - - Hemorrhoidectomy 3 years previously Psychiatric History: No pertinent psych hx [employer] F[employer] 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 Lives: Alone Smoking Status: Former smoker Tobacco Use: Non-smoker Alcohol: Rare Drugs: None - *Family History Maternal History Items: Cancer - liver Paternal History Items: Hypertension Review of Systems Constitutional: Denies: Chills, Fever, Weight Change Gastrointestinal: Reports: Abdominal Pain, Constipation, Melena Patient Problems: Active and Suspected Problems Compression fracture (Acute) Osteopenia (Acute) - Physical Exam General: Alert, Oriented x3 Lungs: Clear to auscultation, Normal air movement Cardiovascular: Regular rate, Regular Rhythm Abdomen: Bowel Sounds Present, Soft, Hypoactive Bowel Sounds, Distended - preoperatively, with improvement postoperatively, Tender - preoperatively with significant decreased tenderness postoperatively Vital Signs Temp Pulse Resp BP Pulse Ox 96.2 F L 88 18 151/82 H 95 11/11/17 13:42 11/11/17 13:42 11/11/17 13:42 11/11/17 13:42 11/11/17 13:42 Oxygen Flow Rate (L/min) 2 Oxygen Delivery Method Nasal Cannula Weight: 70 kg Body Mass Index (BMI) 31.1 Intake and Output for Last 24 Hours 11/09/17 11/10/17 11/11/17 23:59 23:59 23:59 Intake Total 1247 / 1247 3758 / 3758 1403 / 1403 Output Total 1400 / 1400 400 / 400 650 / 650 Balance -153 / -153 3358 / 3358 753 / 753 Laboratory Tests Past 24 Hrs 11/11/17 11/11/17 11/11/17 11:50 11:50 11:50 WBC 23.0 H RBC 4.32 Hgb 12.9 Hct 38.4 MCV 88.9 MCH 29.9 MCHC 33.6 RDW 15.4 H RDW Differential 49.2 H Plt Count 382 MPV 10.0 Immature Gran % (Auto) 0.300 Neut % (Auto) 86.6 H Lymph % (Auto) 3.9 L [place] % (Auto) 9.2 Eos % (Auto) 0.0 Baso % (Auto) 0.0 Absolute Neuts (auto) 19.8 H Absolute Lymphs (auto) 0.90 Total Counted Not Reportable Differential Comment COMMENT Diff Path Review May foll Sodium 137 Potassium 4.5 Chloride 104 Carbon Dioxide 26.0 Anion Gap 7 BUN 28 H Creatinine 0.80 Estim Creat Clear Calc 71.28 Est GFR (MDRD) Af Amer 90 Est GFR (MDRD) Non-Af 75 BUN/Creatinine Ratio 34.9 H Glucose 103 Calcium 7.9 L Total Bilirubin 0.30 AST 61 H ALT 62 H Alkaline Phosphatase 98 B-Natriuretic Peptide 28.2 Total Protein 6.1 L Albumin 2.6 L Globulin 3.5 Albumin/Globulin Ratio 0.7 L Assessment/Plan Active and Suspected Problems Compression fracture (Acute) Osteopenia (Acute) constipation, obstipation with significant distention following attempts at oral and rectal , a history constipation, ischemic changes of the transverse colon, splenic flexure. postprocedure KUB x-ray demonstrated some mild improvement in the WBC count and a lactic acid level of 1.7. Hopefully, this is superficial pressure. Ischemic necrosis of this area and that with the decompression. Her mucosa will heal. We will watch her very closely. We'll maintain her nothing by mouth status. If she has worsening abdominal pain or worsening leukocytosis. We will repeat CT scan. If the patient has signs of increased bowel wall thickening or air in the bowel wall may require emergency colectomy. we'll maintain the patient on Zosyn.
--- NOTE | 2017-11-11 19:15 | RAD_ITS ---
STUDY: X-RAY - ABDOMEN/PELVIS REASON FOR EXAM: Female, 72 years old. ABDOMINAL DISTENTION, POST COLONOSCOPY, EVALUATE FOR FREE AIR TECHNIQUE: AP supine and upright views of the abdomen and pelvis. COMPARISON: CT of the same day FINDINGS: Normal visualized lung bases. Total right hip arthroplasty. Vertebroplasty changes at T12. Air-fluid level visualized in the colon. There is gaseous distention of the colon, most compatible with a colonic ileus. There is no demonstrated free abdominal air. The visualized liver, spleen and kidneys are grossly normal in size and morphology. Normal soft tissue structures. Normal visualized osseous structures. RAD/Abd Decub and/or Erect(Portabl IMPRESSION: There is appearance of a colonic ileus. There is no free air. Electronically Signed: Otoniel Resendiz MD at 19:47 EDT , Service support ,
[2017-11-11 19:32] LABS: Absolute Lymphocyte Count 1.24 X10^3/ul (0.83-4.51); Absolute Neutrophil Count 18.1 X10^3/uL (2.0-7.7); Basophil# 0.01 X10^3/uL; Eosinophil# 0.01 X10^3/uL; Hematocrit 36.8 % (37-47); Hemoglobin 12.1 g/dl (12.0-15.0); Lymphocyte # 1.24 X10^3/ul (4.0); Lymphocyte % 6.1 % (19-41); Mean Corp Hgb Conc 32.9 g/gl (32-36); Mean Corpuscular Hgb 29.5 pg (27.0-32.0); Mean Corpuscular Volume 89.8 fL (81-99); Mean Platelet Vol. 9.5 fl (6.2-12.0); Monocyte% 4.4 % (0-10); Neutrophil # 18.11 X10^3/uL (2.7-7.7); Neutrophil % 89.2 % (47-70); Platelet Count 344 K/mm3 (150-450); RBC Distribution Width CV 15.3 % (11.6-14.6); RBC Distribution Width SD 49.3 fl (35.1-43.9); White Blood Count 20.3 K/mm3 (4.4-11.0)
[2017-11-11 19:33] LABS: POSITIVE COUNT NO; POSITIVE DIFFERENTIAL NO; POSITIVE MORPHOLOGY NO
[2017-11-11 19:48] LABS: ALB/GLOB Ratio 0.7 RATIO (0.9-2.4); AST(SGOT) 64 U/L (15-37); Alanine Aminotransfer ALT/SGPT 71 U/L (13-56); Albumin, Serum 2.5 g/dL (3.2-5.0); Alkaline Phosphatase 91 U/L (45-117); Anion Gap 7 (5-15); BUN 28 mg/dL (7-18); BUN/Creat Ratio 29.1 RATIO (10-20); Calcium,Total 7.2 mg/dL (8.5-10.1); Chloride 103 mmol/L (98-107); Creatinine, Serum 0.96 mg/dL (0.55-1.02); EST Glomerular Filtration Rate 61 mL/min (>60); Est Glom Filt Rate - Afr Amer 73 mL/min (>60); Globulin 3.5 g/dL (2.2-4.2); Glucose 113 mg/dL (74-106); Potassium 4.1 mmol/L (3.5-5.1); Sodium Level 138 mmol/L (136-145)
[2017-11-11 19:57] LABS: Lactic Acid 1.7 mmol/L (0.4-2.0)
--- NOTE | 2017-11-11 20:47 | OP.PCM_ITS ---
Report of Operation Date of Procedure: 11/11/17 Pre-Operative Diagnosis: constipation, obstipation, significant colonic and cecal distention Post-Operative Diagnosis: constipation, obstipation, significant cecal distention, ischemic changes from the transverse colon to the splenic flexure consistent with pressure ischemic changes from colonic distention Surgery/Procedure Performed:: decompressive colonoscopy with marker clip placement just distal to the most significant splenic flexure ischemic changes senior functional analyst: None Type of Anesthesia:: MAC Anesthesiologist: Vazquez Bradford - [id number] Specimen's removed: none Description of Procedure: The patient was brought to the endoscopy suite. Sign in was performed verifying patient, site, planned procedure, critical nursing information, the patient was monitored with cardiac, pulse oximetric, and blood pressure monitoring devices. Monitored anesthetic care was provided for sedation. per the floor nurse, the patient had a large bowel movement with solid and liquid stool prior to being brought down to endoscopy. the patient was positioned left lateral decubitus position. Prior to endoscopy. She had another very large liquid bowel movement estimated to be at least 5391-1596 cc. Following IV sedation, a digital rectal exam was performed which revealed a degree of anal stenosis, allowing 1 finger to be inserted. The video colonoscope was inserted and advanced to the cecum as verified by the ileocecal valve, cecal base anatomic features and palpation. procedure amount of liquid stool was aspirated as the scope was inserted and withdrawn at least another 1200 cc of stool in total was aspirated. The base of the cecum appeared healthy and contracted appropriately with aspiration. The cystoscope was withdrawn. The ascending colon appeared unremarkable, but starting in the transverse colon. There was patchy what appeared to be relatively superficial ischemic changes which became more prominent, with larger areas of patchy ischemic changes approaching the area splenic flexure. There was white slough along with dark material consistent with pressure. Ischemic necrosis. The colon did not appear overly edematous in the intervening areas between the superficial ischemic changes and was distensible. the colon return to normal appearance. Just beyond was felt to be the splenic flexure. A resolution clip was deployed at this area to ivan the distal extent of the ischemic changes in the event of the patient deteriorating requiring emergency surgical procedure. As the scope was withdrawn, the remainder of the descending colon, rectosigmoid area had significant liquid stool which was able to be aspirated and decompression performed as much as possible. At the conclusion of the case, finger dilation of the anus to the diameter of my thumb was performed. post-endoscopy. Laboratory studies were obtained. A KUB and decubitus x-ray were obtained which demonstrated the clip to be just beyond the splenic flexure still a degree of an air-fluid level in the cecum, but overall less distention than preoperatively and no free air was noted. The patient tolerated the procedure well and was brought to recovery in stable condition
[2017-11-11] MEDS: 0.9% Normal Saline 1,000 ML 30 ML IV (21:45)
[2017-11-12 03:00] VITALS: BP 131/79; PULSE 92; RESP 18; TEMP 36.9; O2SAT 95
--- NOTE | 2017-11-12 03:17 | NURSING ---
Patient assisted into the bathroom during this time, patient had a large loose watery bowel movement.
--- NOTE | 2017-11-12 05:00 | RAD_ITS ---
STUDY: X-RAY - ABDOMEN/PELVIS REASON FOR EXAM: Female, 72 years old. Abdominal distention TECHNIQUE: COMPARISON: None. FINDINGS: Normal visualized lung bases. There is an unremarkable bowel gas pattern. There is no demonstrated free abdominal air. The visualized liver, spleen and kidneys are grossly normal in size and morphology. Normal soft tissue structures. Vertebral plasty of T12. A total right hip replacement. Degenerative changes involving the lumbosacral disc spaces. RAD/Abd Inc Decub and/or Erect IMPRESSION: No acute findings in the abdomen/pelvis Electronically Signed: Danielito Jacob, at 5:22 EDT Tel , Service support ,
[2017-11-12] MEDS: Piperacil/Tazobactam 3.375 GM/50 ML ML IV ×2 (05:16→13:40)
[2017-11-12 06:21] LABS: Absolute Lymphocyte Count 1.18 X10^3/ul (0.83-4.51); Absolute Neutrophil Count 11.4 X10^3/uL (2.0-7.7); Basophil# 0.02 X10^3/uL; Basophil% 0.1 % (0-1); Eosinophil# 0.18 X10^3/uL; Eosinophils% 1.3 % (0-5); Hematocrit 33.8 % (37-47); Hemoglobin 11.3 g/dl (12.0-15.0); Lymphocyte # 1.18 X10^3/ul (4.0); Lymphocyte % 8.4 % (19-41); Mean Corp Hgb Conc 33.4 g/gl (32-36); Mean Corpuscular Volume 89.7 fL (81-99); Monocyte# 1.27 X10^3/uL; Neutrophil % 81.1 % (47-70); Platelet Count 357 K/mm3 (150-450); RBC Distribution Width CV 15.5 % (11.6-14.6); RBC Distribution Width SD 49.3 fl (35.1-43.9); Red Blood Count 3.77 M/mm3 (4.2-5.4); White Blood Count 14.1 K/mm3 (4.4-11.0)
[2017-11-12 06:37] LABS: ALB/GLOB Ratio 0.7 RATIO (0.9-2.4); AST(SGOT) 46 U/L (15-37); Alanine Aminotransfer ALT/SGPT 61 U/L (13-56); Albumin, Serum 2.2 g/dL (3.2-5.0); Alkaline Phosphatase 77 U/L (45-117); Anion Gap 8 (5-15); BUN 27 mg/dL (7-18); Calcium,Total 7.3 mg/dL (8.5-10.1); Chloride 104 mmol/L (98-107); Creatinine, Serum 0.66 mg/dL (0.55-1.02); EST Glomerular Filtration Rate 94 mL/min (>60); Est Glom Filt Rate - Afr Amer 114 mL/min (>60); Estimated Creatinine Clearance 57.02 ml/min; Globulin 3.2 g/dL (2.2-4.2); Glucose 82 mg/dL (74-106); Magnesium 2.7 mg/dL (1.6-2.6); Potassium 3.6 mmol/L (3.5-5.1); Protein, Total 5.4 g/dL (6.4-8.2); Sodium Level 139 mmol/L (136-145)
[2017-11-12 06:40] LABS: POSITIVE COUNT NO; POSITIVE DIFFERENTIAL NO; POSITIVE MORPHOLOGY NO
[2017-11-12] MEDS: Lactated Ringers 1,000 ML 999 ML IV (08:19)
[2017-11-12 09:05] LABS: Pathologist Review Reviewed
[2017-11-12 09:16] VITALS: BP 136/57; PULSE 85; RESP 18; TEMP 36.5; O2SAT 96
[2017-11-12 09:26] VITALS: PULSE 85; RESP 20; O2SAT 96
[2017-11-12] MEDS: Polyethylene Glycol 3350 17 GM PACKET PO (10:05)
[2017-11-12] MEDS: Pantoprazole Sodium 20 MG Tablet PO (10:05)
--- NOTE | 2017-11-12 10:44 | PCM.PROGNOTE ---
Patient Problems: Active and Suspected Problems Compression fracture (Acute) Osteopenia (Acute) Subjective: Day #2 Zosyn Taken to the endoscopy suite last evening for markedly distended colon and especially the cecum. Had necrotic change at the splenic flexure(see photos from endoscopy). Kept NPO and continues on Zosyn. A clip was placed at the splenic flexure by Star Vega. She has been afebrile since admission. Current temp is 97.7. She is not tachycardic and blood pressure is within normal limits. Respiratory rate is 20 and she is 96% saturated on a 2 L nasal cannula. White blood cell count has come down to 14.1 from 23 on 11/11/2017 with the initiation of Zosyn. Neutrophils are 81% today. Hemoglobin is 11.3 and the platelet count is within normal limits. Electrolytes are within normal limits and the BUN is 27 with a creatinine of 0.66. Calcium corrected for hypoalbuminemia is within normal limits. Transaminases are very mildly elevated. Intake and output are not accurate. Since IVF's the dry mouth has improved. she denies abdominal pain. Denies nausea. Rare cough and denies SOB. No chest pain. Remains NPO except meds. - Physical Exam General: Alert, Oriented x3, Cooperative, - - She looks less pale than yesterday and does not look toxic HEENT: Atraumatic, PERRLA, EOMI, Normocephalic Oral: Dry Mucosa Neck: Supple, Trachea Midline Lungs: - - She has diminished BS's in the R base with persistent rales. The left base has excellent air exchnage and coarse crackles completely resolved after several deep breaths. She is not tachypneic and she denies orthopnea. No wheezes Cardiovascular: Regular rate, Regular Rhythm, Normal S1, Normal S2, No murmurs, No Gallop Abdomen: Soft, Non Tender, Non-Distended, Hypoactive Bowel Sounds, - Extremities: No clubbing - No guarding with palpation, No cyanosis, No Calf Tenderness, Edema - of the dorsum of the feet, Peripheral Pulses Normal Skin: No rashes, No breakdown Musculoskeletal: No Muscle Wasting Neurological: Cranial nerves II-XII grossly intact, Neuro grossly intact Psych/Mental Status: Normal Affect, Appropriate Vital Signs Temp Pulse Resp BP Pulse Ox 97.7 F L 85 20 H 136/57 H 96 11/12/17 09:16 11/12/17 09:26 11/12/17 09:26 11/12/17 09:16 11/12/17 09:26 Oxygen Flow Rate (L/min) 2 Oxygen Delivery Method Nasal Cannula Weight: 154 lb 5.177 oz Body Mass Index (BMI) 31.1 Intake and Output for Last 24 Hours 11/10/17 11/11/17 11/12/17 23:59 23:59 23:59 Intake Total 3758 / 3758 1848 / 1848 134 / 134 Output Total 400 / 400 1700 / 1700 400 / 400 Balance 3358 / 3358 148 / 148 -266 / -266 Laboratory Tests Past 24 Hrs 11/11/17 11/11/17 11/11/17 11:50 11:50 11:50 WBC 23.0 H RBC 4.32 Hgb 12.9 Hct 38.4 MCV 88.9 MCH 29.9 MCHC 33.6 RDW 15.4 H RDW Differential 49.2 H Plt Count 382 MPV 10.0 Immature Gran % (Auto) 0.300 Neut % (Auto) 86.6 H Lymph % (Auto) 3.9 L [place] % (Auto) 9.2 Eos % (Auto) 0.0 Baso % (Auto) 0.0 Absolute Neuts (auto) 19.8 H Absolute Lymphs (auto) 0.90 Total Counted Not Reportable Differential Comment COMMENT Diff Path Review Reviewed Sodium 137 Potassium 4.5 Chloride 104 Carbon Dioxide 26.0 Anion Gap 7 BUN 28 H Creatinine 0.80 Estim Creat Clear Calc 71.28 Est GFR (MDRD) Af Amer 90 Est GFR (MDRD) Non-Af 75 BUN/Creatinine Ratio 34.9 H Glucose 103 Lactic Acid Calcium 7.9 L Magnesium Total Bilirubin 0.30 AST 61 H ALT 62 H Alkaline Phosphatase 98 B-Natriuretic Peptide 28.2 Total Protein 6.1 L Albumin 2.6 L Globulin 3.5 Albumin/Globulin Ratio 0.7 L 11/11/17 11/11/17 11/11/17 19:24 19:24 19:24 WBC 20.3 H RBC 4.10 L Hgb 12.1 Hct 36.8 L MCV 89.8 MCH 29.5 MCHC 32.9 RDW 15.3 H RDW Differential 49.3 H Plt Count 344 MPV 9.5 Immature Gran % (Auto) 0.300 Neut % (Auto) 89.2 H Lymph % (Auto) 6.1 L [place] % (Auto) 4.4 Eos % (Auto) 0.0 Baso % (Auto) 0.0 Absolute Neuts (auto) 18.1 H Absolute Lymphs (auto) 1.24 Total Counted Not Reportable Differential Comment Diff Path Review Sodium 138 Potassium 4.1 Chloride 103 Carbon Dioxide 28.0 Anion Gap 7 BUN 28 H Creatinine 0.96 Estim Creat Clear Calc 59.40 Est GFR (MDRD) Af Amer 73 Est GFR (MDRD) Non-Af 61 BUN/Creatinine Ratio 29.1 H Glucose 113 H Lactic Acid 1.7 Calcium 7.2 L Magnesium Total Bilirubin 0.40 AST 64 H ALT 71 H Alkaline Phosphatase 91 B-Natriuretic Peptide Total Protein 6.0 L Albumin 2.5 L Globulin 3.5 Albumin/Globulin Ratio 0.7 L 11/12/17 11/12/17 05:43 05:43 WBC 14.1 H RBC 3.77 L Hgb 11.3 L Hct 33.8 L MCV 89.7 MCH 30.0 MCHC 33.4 RDW 15.5 H RDW Differential 49.3 H Plt Count 357 MPV 10.0 Immature Gran % (Auto) 0.100 Neut % (Auto) 81.1 H Lymph % (Auto) 8.4 L [place] % (Auto) 9.0 Eos % (Auto) 1.3 Baso % (Auto) 0.1 Absolute Neuts (auto) 11.4 H Absolute Lymphs (auto) 1.18 Total Counted Not Reportable Differential Comment Diff Path Review Sodium 139 Potassium 3.6 Chloride 104 Carbon Dioxide 27.0 Anion Gap 8 BUN 27 H Creatinine 0.66 Estim Creat Clear Calc 57.02 Est GFR (MDRD) Af Amer 114 Est GFR (MDRD) Non-Af 94 BUN/Creatinine Ratio 41.0 H Glucose 82 Lactic Acid Calcium 7.3 L Magnesium 2.7 H Total Bilirubin 0.40 AST 46 H ALT 61 H Alkaline Phosphatase 77 B-Natriuretic Peptide Total Protein 5.4 L Albumin 2.2 L Globulin 3.2 Albumin/Globulin Ratio 0.7 L Medical Necessity - Tobacco Use Smoking Status: Former smoker Tobacco Use: Non-smoker Assessment/Plan Active and Suspected Problems Compression fracture (Acute) Osteopenia (Acute) Impressions 1. admitted with an acute T12 compression fracture due to a fall - She is post kyphoplasty 2. elevated BUN/CREAT ratio - due to IV volume depletion? or blood in the GI tract? She has BL pleural effusions and will need to be careful with IV fluids. 3. hx of colon polyps....no colonoscopy for 10 years 4. hemorrhoids with very tight anus/sphincter 5. GERD 6. Hypertension 7. Hypokalemia 8. hypoxic, former smoker, rales in the bases 9. osteopenia 10. colitis of the transverse colon - suspect due to ischemia? infection? on Zosyn which will cover both abdominal source of infection and pneumonia 11. BL pleural effusions with compressive atelectasis and ? pneumonia 12. obstipation - resolved....has had 3 BM's since yesterday afternoon. 13. dilated GB - no stones and she has no pain and no nausea.....possibly due to fluid/hydrops? 14. Diverticulosis Continue Zosyn Recheck lab in the a.m. Hemoccult stool Echocardiogram to evaluate left ventricular function in light of bilateral pleural effusions Repeat a PA and lateral chest x-ray in the a.m. Monitor closely for increased temp, tachycardia, drop in BP, development of abdominal pain, bloody stool. Code Visit Inpatient E&M: 94794 Subs Hosp L3
[2017-11-12 12:23] VITALS: BP 118/60; PULSE 77; RESP 18; TEMP 37.1; O2SAT 97
--- NOTE | 2017-11-12 13:23 | ECHOD_ITS ---
Reason For Study: Pleural Effusions Procedure This was a 2D Doppler, Color Flow transthoracic echocardiogram. Exam performed portable in patient room. Left Ventricle Mild eccentric left ventricular hypertrophy. The estimated ejection fraction is 65 %. Stage 2 diastolic dysfunction. No regional wall motion abnormalities noted. Right Ventricle Normal size and thickness. Normal systolic function. Atria Normal left atrium. Normal right atrium. Normal atrial septum. Mitral Valve The mitral valve is structurally normal. No prolapse or stenosis seen. Trivial mitral valve insufficiency. Tricuspid Valve Normal tricuspid valve. Trivial tricuspid valve insufficiency. Right ventricular systolic pressure estimated to be 35 mmHg. Aortic Valve Trisinus/trileaflet aortic valve. Mild diffuse aortic valve thickening. Trivial aortic valve insufficiency. Pulmonic Valve Normal pulmonic valve. Trivial pulmonic valve insufficiency. Great Vessels Normal aortic root. Normal arch. Normal inferior vena cava. Inferior vena cava collapse with sniff. Pericardium/Pleural No pericardial effusion. MMode/2D Measurements & Calculations LVIDd: 4.6 cm IVSd: 0.84 cm Ao root diam: 3.1 cm LVIDs: 3.1 cm LVPWd: 0.92 cm LA dimension: 3.2 cm RVDd: 2.9 cm FS: 32.1 % LAV(MOD-bp): 27.4 ml LA A4 area: 12.4 cm2 RA A4 area: 11.0 cm2 LAV(MOD-bp) Indexed: 16.6 ml/m2 LAV(MOD-sp2): 27.2 ml LAV(MOD-sp4): 27.9 ml Doppler Measurements & Calculations MV E max shayan: 111.0 cm/sec Lat Peak E' Shayan: 8.6 cm/sec Med Peak E' Shayan: 9.0 cm/sec MV A max shayan: 95.9 cm/sec E/E' lat: 12.9 E/E' med: 12.4 MV E/A: 1.2 Ao V2 max: 178.8 cm/sec LV V1 max: 138.8 cm/sec PA V2 max: 85.0 cm/sec Ao max P.8 mmHg LV V1 max P.7 mmHg Ao V2 mean: 116.9 cm/sec Ao mean P.5 mmHg Ao V2 VTI: 36.0 cm TR max shayan: 249.9 cm/sec TR max P.1 mmHg Interpretation Summary The estimated ejection fraction is 65 %. Stage 2 diastolic dysfunction. Trivial mitral valve insufficiency. Trivial tricuspid valve insufficiency. Right ventricular systolic pressure estimated to be 35 mmHg. Trivial aortic valve insufficiency. There is no comparison study available. Ordering Physician: Nereyda Ruiz Referring Physician: Jarek Alvarez Performed By: Fabiola Castaneda RDCS, RVT
--- NOTE | 2017-11-12 13:41 | PCM.PN.SRG ---
Patient Problems: Active and Suspected Problems Compression fracture (Acute) Osteopenia (Acute) Subjective: 3 - Liquid bowel movements overnight, minimal abdominal pain - Physical Exam General: Alert, Oriented x3, Cooperative Lungs: Clear to auscultation, Normal air movement Cardiovascular: Regular rate, No murmurs Abdomen: Soft, Non Tender, Hypoactive Bowel Sounds Vital Signs Temp Pulse Resp BP Pulse Ox 98.7 F 77 18 118/60 97 11/12/17 12:23 11/12/17 12:23 11/12/17 12:23 11/12/17 12:23 11/12/17 12:23 Oxygen Flow Rate (L/min) 2 Oxygen Delivery Method Nasal Cannula Weight: 70 kg Body Mass Index (BMI) 31.1 Intake and Output for Last 24 Hours 11/10/17 11/11/17 11/12/17 23:59 23:59 23:59 Intake Total 3758 / 3758 1848 / 1848 1389 / 1389 Output Total 400 / 400 1700 / 1700 400 / 400 Balance 3358 / 3358 148 / 148 989 / 989 Laboratory Tests Past 24 Hrs 11/11/17 11/11/17 11/11/17 11:50 19:24 19:24 WBC 20.3 H RBC 4.10 L Hgb 12.1 Hct 36.8 L MCV 89.8 MCH 29.5 MCHC 32.9 RDW 15.3 H RDW Differential 49.3 H Plt Count 344 MPV 9.5 Immature Gran % (Auto) 0.300 Neut % (Auto) 89.2 H Lymph % (Auto) 6.1 L [place] % (Auto) 4.4 Eos % (Auto) 0.0 Baso % (Auto) 0.0 Absolute Neuts (auto) 18.1 H Absolute Lymphs (auto) 1.24 Total Counted Not Reportable Diff Path Review Reviewed Sodium Potassium Chloride Carbon Dioxide Anion Gap BUN Creatinine Estim Creat Clear Calc Est GFR (MDRD) Af Amer Est GFR (MDRD) Non-Af BUN/Creatinine Ratio Glucose Lactic Acid 1.7 Calcium Magnesium Total Bilirubin AST ALT Alkaline Phosphatase Total Protein Albumin Globulin Albumin/Globulin Ratio 11/11/17 11/12/17 11/12/17 19:24 05:43 05:43 WBC 14.1 H RBC 3.77 L Hgb 11.3 L Hct 33.8 L MCV 89.7 MCH 30.0 MCHC 33.4 RDW 15.5 H RDW Differential 49.3 H Plt Count 357 MPV 10.0 Immature Gran % (Auto) 0.100 Neut % (Auto) 81.1 H Lymph % (Auto) 8.4 L [place] % (Auto) 9.0 Eos % (Auto) 1.3 Baso % (Auto) 0.1 Absolute Neuts (auto) 11.4 H Absolute Lymphs (auto) 1.18 Total Counted Not Reportable Diff Path Review Sodium 138 139 Potassium 4.1 3.6 Chloride 103 104 Carbon Dioxide 28.0 27.0 Anion Gap 7 8 BUN 28 H 27 H Creatinine 0.96 0.66 Estim Creat Clear Calc 59.40 57.02 Est GFR (MDRD) Af Amer 73 114 Est GFR (MDRD) Non-Af 61 94 BUN/Creatinine Ratio 29.1 H 41.0 H Glucose 113 H 82 Lactic Acid Calcium 7.2 L 7.3 L Magnesium 2.7 H Total Bilirubin 0.40 0.40 AST 64 H 46 H ALT 71 H 61 H Alkaline Phosphatase 91 77 Total Protein 6.0 L 5.4 L Albumin 2.5 L 2.2 L Globulin 3.5 3.2 Albumin/Globulin Ratio 0.7 L 0.7 L Medical Necessity - Tobacco Use Smoking Status: Former smoker Tobacco Use: Non-smoker Assessment/Plan Active and Suspected Problems Compression fracture (Acute) Osteopenia (Acute) constipation, obstipation with significant distention following attempts at oral and rectal , a history constipation, ischemic changes of the transverse colon, splenic flexure. postprocedure KUB x-ray demonstrated some mild improvement in the WBC count this morning is improved to 14 from 23. this morning's x-ray demonstrated a normal caliber cecum but still demonstrated contrast in the renal collecting system.. Hopefully, this is superficial pressure ischemic necrosis of this area and that with the decompression, her mucosa will heal. this is somewhat surprising as pressure distention should be more of a cecal phenomenon and this seems more of a watershed area at the splenic flexure, but the patient's vasculature appears unremarkable and this does not seem to demonstrate a wedgelike infarct in the mesentery. We will watch her very closely. We'll maintain her nothing by mouth status. If she has worsening abdominal pain or worsening leukocytosis. We will repeat CT scan. If the patient has signs of increased bowel wall thickening or air in the bowel wall may require emergency colectomy. we'll maintain the patient on Zosyn.
[2017-11-12 13:46] VITALS: BP 129/77; PULSE 75; RESP 18; TEMP 37.1; O2SAT 97
--- NOTE | 2017-11-12 14:54 | NURSING ---
echo completed at this time.
[2017-11-12 20:19] VITALS: BP 139/64; PULSE 70; RESP 18; TEMP 36.6; O2SAT 95
[2017-11-12] MEDS: Calcium Carb/Vitamin D 1 TABLET Tablet PO (21:08)
[2017-11-13] MEDS: Acetaminophen 500 MG Tablet 1000 MG PO ×3 (00:26→21:05)
[2017-11-13 02:38] VITALS: BP 139/79; PULSE 79; RESP 17; TEMP 36.4; O2SAT 93
[2017-11-13] MEDS: oxyCODONE 5 MG Tablet PO (05:14)
[2017-11-13 06:20] LABS: Anion Gap 7 (5-15); BUN 14 mg/dL (7-18); BUN/Creat Ratio 23.8 RATIO (10-20); Calcium,Total 7.5 mg/dL (8.5-10.1); Chloride 108 mmol/L (98-107); Creatinine, Serum 0.59 mg/dL (0.55-1.02); EST Glomerular Filtration Rate 107 mL/min (>60); Est Glom Filt Rate - Afr Amer 129 mL/min (>60); Estimated Creatinine Clearance 57.02 ml/min; Glucose 86 mg/dL (74-106); Magnesium 2.2 mg/dL (1.6-2.6); Phosphorus 1.6 mg/dL (2.5-4.9); Potassium 3.7 mmol/L (3.5-5.1); Sodium Level 139 mmol/L (136-145)
[2017-11-13 06:36] LABS: Absolute Neutrophil Count 6.6 X10^3/uL (2.0-7.7); Basophil# 0.02 X10^3/uL; Basophil% 0.2 % (0-1); Eosinophil# 0.53 X10^3/uL; Eosinophils% 5.7 % (0-5); Hematocrit 31.5 % (37-47); Hemoglobin 10.2 g/dl (12.0-15.0); Lymphocyte % 11.9 % (19-41); Mean Corp Hgb Conc 32.4 g/gl (32-36); Mean Corpuscular Hgb 29.4 pg (27.0-32.0); Mean Corpuscular Volume 90.8 fL (81-99); Mean Platelet Vol. 9.6 fl (6.2-12.0); Monocyte# 0.95 X10^3/uL; Monocyte% 10.3 % (0-10); Neutrophil # 6.61 X10^3/uL (2.7-7.7); Neutrophil % 71.8 % (47-70); Platelet Count 339 K/mm3 (150-450); RBC Distribution Width CV 15.6 % (11.6-14.6); Red Blood Count 3.47 M/mm3 (4.2-5.4); White Blood Count 9.2 K/mm3 (4.4-11.0)
[2017-11-13 06:41] LABS: POSITIVE COUNT NO; POSITIVE DIFFERENTIAL NO; POSITIVE MORPHOLOGY NO
--- NOTE | 2017-11-13 06:52 | PCM.PN.SRG ---
Patient Problems: Active and Suspected Problems Compression fracture (Acute) Osteopenia (Acute) Subjective: no abdominal pain, hungry yesterday - Physical Exam General: Alert, Oriented x3 Lungs: Clear to auscultation, Normal air movement Cardiovascular: Regular rate, Regular Rhythm Abdomen: Bowel Sounds Present, Soft, Non Tender, Hypoactive Bowel Sounds Vital Signs Temp Pulse Resp BP Pulse Ox 97.5 F L 79 17 139/79 H 93 11/13/17 02:38 11/13/17 02:38 11/13/17 02:38 11/13/17 02:38 11/13/17 02:38 Oxygen Flow Rate (L/min) 2 Oxygen Delivery Method Nasal Cannula Weight: 70 kg Body Mass Index (BMI) 31.1 Intake and Output for Last 24 Hours 11/11/17 11/12/17 11/13/17 23:59 23:59 23:59 Intake Total 1848 / 1848 2454 / 2454 649 / 649 Output Total 1700 / 1700 700 / 700 500 / 500 Balance 148 / 148 1754 / 1754 149 / 149 Microbiology Past 72 Hours 11/12/17 19:35 Stool Occult Blood (REED) - Final Stool Occult Blood Positive Laboratory Tests Past 24 Hrs 11/11/17 11/13/17 11/13/17 11:50 05:35 05:35 WBC 9.2 RBC 3.47 L Hgb 10.2 L Hct 31.5 L MCV 90.8 MCH 29.4 MCHC 32.4 RDW 15.6 H RDW Differential 51.0 H Plt Count 339 MPV 9.6 Immature Gran % (Auto) 0.100 Neut % (Auto) 71.8 H Lymph % (Auto) 11.9 L [place] % (Auto) 10.3 H Eos % (Auto) 5.7 H Baso % (Auto) 0.2 Absolute Neuts (auto) 6.6 Absolute Lymphs (auto) 1.10 Total Counted Not Reportable Diff Path Review Reviewed Sodium 139 Potassium 3.7 Chloride 108 H Carbon Dioxide 24.0 Anion Gap 7 BUN 14 Creatinine 0.59 Estim Creat Clear Calc 57.02 Est GFR (MDRD) Af Amer 129 Est GFR (MDRD) Non-Af 107 BUN/Creatinine Ratio 23.8 H Glucose 86 Calcium 7.5 L Phosphorus 1.6 L Magnesium 2.2 Medical Necessity - Tobacco Use Smoking Status: Former smoker Tobacco Use: Non-smoker Assessment/Plan Active and Suspected Problems Compression fracture (Acute) Osteopenia (Acute) constipation, obstipation with significant distention following attempts at oral and rectal , a history constipation, ischemic changes of the transverse colon, splenic flexure. postprocedure KUB x-ray demonstrated some mild improvement in the WBC count this morning is improved to 9 from14 and 23. Clinially, this is superficial pressure ischemic necrosis of this area and that with the decompression, her mucosa will heal. this is somewhat surprising as pressure distention should be more of a cecal phenomenon and this seems more of a watershed area at the splenic flexure, but the patient's vasculature appears unremarkable and this does not seem to demonstrate a wedge-like infarct in the mesentery. We will watch her very closely. We will start clear liquids. If she has worsening abdominal pain or worsening leukocytosis. We will repeat CT scan. If the patient has signs of increased bowel wall thickening or air in the bowel wall may require emergency colectomy. we'll maintain the patient on Zosyn. If doing well, will plan for follow up endoscopy in 2-3 weeks
[2017-11-13 08:40] VITALS: BP 131/84; PULSE 60; RESP 20; TEMP 36.9; O2SAT 97
[2017-11-13] MEDS: Lisinopril 40 MG Tablet PO (08:49)
[2017-11-13] MEDS: Polyethylene Glycol 3350 17 GM PACKET PO (08:49)
[2017-11-13] MEDS: Multivitamins,Ther W-Minerals Tablet 1 TABLET PO (08:49)
[2017-11-13 11:16] VITALS: O2SAT 95
--- NOTE | 2017-11-13 12:17 | PCM.PROGNOTE ---
Patient Problems: Active and Suspected Problems Compression fracture (Acute) Osteopenia (Acute) Subjective: Day #3 Bigg she remains afebrile. Blood pressure is well controlled. Pulse ox is 93-97% on 2 L Urine output on 11/12/2017 was 700 All lab was personally reviewed. The white blood cell count today is 9.2, down from 23 and 11/11/2017. Hemoglobin is 10.2-likely dilutional decrease, electrolytes are within normal limits and the BUN is 14 with a creatinine of 0.59. Phosphorus is low at 1.6. The stool is Hemoccult positive Echocardiogram shows a normal left ventricular ejection fraction of 65%. There is stage II diastolic dysfunction and trivial mitral valve insufficiency with a right ventricular systolic pressure estimated at 35. Diet was advanced to clear liquids by Dr. Blake this a.m. She abdominal pain, nausea. She had a bowel movement this a.m. and states it was brown. No emesis. Tolerating clear liquids. She is doing well ambulating in the gonz[place] with a front wheel walker. Back pain is much improved. Objective: - Physical Exam General: Alert, Oriented x3, Cooperative, Looks comfortable in the chair. Good mood. HEENT: Atraumatic, PERRLA, EOMI, Normocephalic Oral: Dry Mucosa Neck: Supple, Trachea Midline Lungs: - - She has diminished BS's in both bases. She is not tachypneic and she denies orthopnea. No wheezes. No rales Cardiovascular: Regular rate, Regular Rhythm, Normal S1, Normal S2, No murmurs, No Gallop Abdomen: Soft, Non Tender, mildly distended and ty,panic in the upper abdomen, Hypoactive Bowel Sounds, Extremities: No clubbing - No guarding with palpation, No cyanosis, No Calf Tenderness, no edema, Peripheral Pulses Normal Skin: No rashes, No breakdown Musculoskeletal: No Muscle Wasting Neurological: Cranial nerves II-XII grossly intact, Neuro grossly intact Psych/Mental Status: Normal Affect, Appropriate CXR shows small BL pleural effusions stool is heme + - Physical Exam Vital Signs Temp Pulse Resp BP Pulse Ox 98.4 F 60 20 H 131/84 H 95 11/13/17 08:40 11/13/17 08:40 11/13/17 08:40 11/13/17 08:40 11/13/17 11:16 Oxygen Flow Rate (L/min) 2 Oxygen Delivery Method Nasal Cannula Weight: 154 lb 5.177 oz Body Mass Index (BMI) 31.1 Intake and Output for Last 24 Hours 11/11/17 11/12/17 11/13/17 23:59 23:59 23:59 Intake Total 1848 / 1848 2454 / 2454 649 / 649 Output Total 1700 / 1700 700 / 700 500 / 500 Balance 148 / 148 1754 / 1754 149 / 149 Microbiology Past 72 Hours 11/12/17 19:35 Stool Occult Blood (REED) - Final Stool Occult Blood Positive Laboratory Tests Past 24 Hrs 11/13/17 11/13/17 05:35 05:35 WBC 9.2 RBC 3.47 L Hgb 10.2 L Hct 31.5 L MCV 90.8 MCH 29.4 MCHC 32.4 RDW 15.6 H RDW Differential 51.0 H Plt Count 339 MPV 9.6 Immature Gran % (Auto) 0.100 Neut % (Auto) 71.8 H Lymph % (Auto) 11.[address] [place] % (Auto) 10.3 H Eos % (Auto) 5.7 H Baso % (Auto) 0.2 Absolute Neuts (auto) 6.6 Absolute Lymphs (auto) 1.10 Total Counted Not Reportable Sodium 139 Potassium 3.7 Chloride 108 H Carbon Dioxide 24.0 Anion Gap 7 BUN 14 Creatinine 0.59 Estim Creat Clear Calc 57.02 Est GFR (MDRD) Af Amer 129 Est GFR (MDRD) Non-Af 107 BUN/Creatinine Ratio 23.8 H Glucose 86 Calcium 7.5 L Phosphorus 1.6 L Magnesium 2.2 Medical Necessity - Tobacco Use Smoking Status: Former smoker Tobacco Use: Non-smoker Assessment/Plan Active and Suspected Problems Compression fracture (Acute) Osteopenia (Acute) Impressions 1. admitted with an acute T12 compression fracture due to a fall - She is post kyphoplasty and the pain is much improved. Ambulating well with a FWW 2. elevated BUN/CREAT ratio - due to IV volume depletion? or blood in the GI tract? Stool is heme+ 3. hx of colon polyps....no polyps or masses on coloscopy this admission 4. hemorrhoids with very tight anus/sphincter - dilated by Dr. Graves 5. GERD 6. Hypertension 7. Hypokalemia 8. hypoxic, former smoker, rales in the bases - BL pleural effusions and atelectasis 9. osteopenia 10. colitis of the transverse colon - suspect due to ischemia? infection? or pressure from obstipation and large amount of stool accumulation? Continue Zosyn . 11. BL pleural effusions with compressive atelectasis and ? pneumonia - on Zosyn 12. obstipation - resolved.. 13. dilated GB - no stones and she has no pain and no nausea.....possibly due to fluid/hydrops? 14. Diverticulosis Continue Zosyn Decrease the IV rate to 40 since she is taking PO now Recheck a BMP and CBC with diff in the AM Code Visit Inpatient E&M: 05221 Subs Hosp L2
--- NOTE | 2017-11-13 12:34 | RAD_ITS ---
STUDY: X-RAY CHEST REASON FOR EXAM: Female, 72 years old. Cough and hypoxia. TECHNIQUE: PA and lateral views of the chest. COMPARISON: Comparison is made with prior study dated November 11, 2017. FINDINGS: Persistent increased markings at the lung bases suggestive of bibasilar atelectasis slightly worse on the right side. Blunting of both costophrenic angle. Normal size heart. Normal mediastinum and meño. Normal visualized pulmonary arteries. There is atherosclerotic tortuosity of the aortic arch and descending thoracic aorta. There is demineralization of the osseous structures. Prior vertebroplasty of the L1 vertebrae. Normal visualized ribs, clavicles, and shoulders. There is no demonstrated abnormality of the visualized soft tissue structures of the upper abdomen. RAD/Chest PA and Lateral IMPRESSION: Bibasilar atelectasis and/or early infiltrate with small bilateral pleural effusions. There has been mild degree of progression as compared to prior study. Electronically Signed: Hosea Ram MD at 13:56 EDT Tel [phone], Service support ,
[2017-11-13 14:23] VITALS: BP 127/67; PULSE 64; RESP 18; TEMP 36.7; O2SAT 98
[2017-11-13] MEDS: 0.9% NaCl Peripheral Flush Adult/Peds IV (14:26)
--- NOTE | 2017-11-13 14:35 | CASEMGMT ---
Social Work Note SW met with pt to discuss discharge planning. SW asked pt her plans for discharge. Per pt, she is interested in going home and doing outpatient therapy. Pt states that she would like to do outpatient therapy at [facility]. SW informed pt that this worker can get a script for outpatient therapy and pt can take the script to the facility that she would like and they can provide outpatient therapy for her. Pt was receptive to this and states understanding. Pt denied additional needs or concerns at this time. [facility] will continue to follow with pt to assist with discharge planning. Plan: Home with outpatient therapy Margarita Whitehead [employer] PROCESS WORKER, MEDICINE AIDE
[2017-11-13 19:40] VITALS: BP 153/75; PULSE 66; RESP 14; TEMP 36.9; O2SAT 95
[2017-11-13] MEDS: Calcium Carb/Vitamin D 1 TABLET Tablet PO (21:06)
[2017-11-14 02:54] VITALS: BP 162/74; PULSE 69; RESP 16; TEMP 36.5; O2SAT 96
[2017-11-14] MEDS: Ondansetron 4 MG/2 ML Vial IV (05:24)
[2017-11-14] MEDS: 0.9% NaCl Peripheral Flush Adult/Peds IV (05:24)
--- NOTE | 2017-11-14 06:39 | PCM.PN.SRG ---
Patient Problems: Active and Suspected Problems Compression fracture (Acute) Osteopenia (Acute) Subjective: hungry, wants real food - Physical Exam General: Alert, Oriented x3 Lungs: Clear to auscultation, Normal air movement Cardiovascular: Regular rate, Regular Rhythm Abdomen: Bowel Sounds Present, Soft, Non Tender Vital Signs Temp Pulse Resp BP Pulse Ox 97.7 F L 69 16 162/74 H 96 11/14/17 02:54 11/14/17 02:54 11/14/17 02:54 11/14/17 02:54 11/14/17 02:54 Oxygen Flow Rate (L/min) 2 Oxygen Delivery Method Nasal Cannula Weight: 70 kg Body Mass Index (BMI) 31.1 Intake and Output for Last 24 Hours 11/12/17 11/13/17 11/14/17 23:59 23:59 23:59 Intake Total 2454 / 2454 2166 / 2166 1249 / 1249 Output Total 700 / 700 1150 / 1150 1300 / 1300 Balance 1754 / 1754 1016 / 1016 -51 / -51 Microbiology Past 72 Hours 11/12/17 19:35 Stool Occult Blood (REED) - Final Stool Occult Blood Positive Laboratory Tests Past 24 Hrs 11/13/17 05:35 WBC 9.2 RBC 3.47 L Hgb 10.2 L Hct 31.5 L MCV 90.8 MCH 29.4 MCHC 32.4 RDW 15.6 H RDW Differential 51.0 H Plt Count 339 MPV 9.6 Immature Gran % (Auto) 0.100 Neut % (Auto) 71.8 H Lymph % (Auto) 11.9 L [place] % (Auto) 10.3 H Eos % (Auto) 5.7 H Baso % (Auto) 0.2 Absolute Neuts (auto) 6.6 Absolute Lymphs (auto) 1.10 Total Counted Not Reportable Medical Necessity - Tobacco Use Smoking Status: Former smoker Tobacco Use: Non-smoker Assessment/Plan Active and Suspected Problems Compression fracture (Acute) Osteopenia (Acute) constipation, obstipation with significant distention following attempts at oral and rectal , a history constipation, ischemic changes of the transverse colon, splenic flexure. postprocedure KUB x-ray demonstrated some mild improvement in the WBC count this morning is improved to 9 from14 and 23. Clinially, this is superficial pressure ischemic necrosis of this area and that with the decompression, her mucosa will heal. this is somewhat surprising as pressure distention should be more of a cecal phenomenon and this seems more of a watershed area at the splenic flexure, but the patient's vasculature appears unremarkable and this does not seem to demonstrate a wedge-like infarct in the mesentery. We will watch her very closely. We will advance to low residue diet Can stop Zosyn. Will plan for follow up in my office in 2-3 weeks, and follow up colonoscopy in 6-8 weeks. OK for discharge from my standpoint.
[2017-11-14 07:12] LABS: Absolute Neutrophil Count 4.4 X10^3/uL (2.0-7.7); Basophil# 0.03 X10^3/uL; Basophil% 0.4 % (0-1); Eosinophil# 0.55 X10^3/uL; Eosinophils% 7.9 % (0-5); Hematocrit 33.9 % (37-47); Lymphocyte % 18.8 % (19-41); Mean Corp Hgb Conc 32.4 g/gl (32-36); Mean Corpuscular Hgb 29.4 pg (27.0-32.0); Mean Corpuscular Volume 90.6 fL (81-99); Monocyte# 0.59 X10^3/uL; Monocyte% 8.5 % (0-10); Neutrophil # 4.43 X10^3/uL (2.7-7.7); Neutrophil % 64.1 % (47-70); POSITIVE COUNT NO; POSITIVE DIFFERENTIAL NO; POSITIVE MORPHOLOGY NO; Platelet Count 418 K/mm3 (150-450); RBC Distribution Width SD 48.9 fl (35.1-43.9); Red Blood Count 3.74 M/mm3 (4.2-5.4); White Blood Count 6.9 K/mm3 (4.4-11.0)
[2017-11-14 07:23] LABS: Anion Gap 9 (5-15); BUN 5 mg/dL (7-18); BUN/Creat Ratio 8.9 RATIO (10-20); Chloride 109 mmol/L (98-107); Creatinine, Serum 0.56 mg/dL (0.55-1.02); EST Glomerular Filtration Rate 112 mL/min (>60); Est Glom Filt Rate - Afr Amer 136 mL/min (>60); Estimated Creatinine Clearance 57.02 ml/min; Glucose 90 mg/dL (74-106); Potassium 3.8 mmol/L (3.5-5.1); Sodium Level 141 mmol/L (136-145)
[2017-11-14 08:43] VITALS: O2SAT 96
[2017-11-14] MEDS: Acetaminophen 500 MG Tablet 1000 MG PO (09:06)
[2017-11-14 10:00] VITALS: BP 150/91; PULSE 73; RESP 18; TEMP 36.6; O2SAT 98
[2017-11-14] MEDS: Calcium Carb/Vitamin D 1 TABLET Tablet PO (10:37)
[2017-11-14] MEDS: Polyethylene Glycol 3350 17 GM PACKET PO (10:38)
[2017-11-14] MEDS: Lisinopril 40 MG Tablet PO (10:38)
[2017-11-14] MEDS: Multivitamins,Ther W-Minerals Tablet 1 TABLET PO (10:38)
[2017-11-14 10:50] VITALS: O2SAT 99
--- NOTE | 2017-11-14 12:43 | CASEMGMT ---
Social Work Note Per. Dr. Ruiz pt is now agreeable to placement at SNF for rehabilitation and that pt would like TCU. NAVID met with pt to confirm this and pt is agreeable to placement. NAVID placed call to Rhina with inpatient rehab/TCU and provided Rhina with pt's information. Rhina asked if pt had been at a custodial facility within the last 30 days and NAVID was unsure of this but will ask pt. NAVID informed Rhina that pt is ready for discharge today. NAVID met with pt and per pt she has not been at a SNF within the last 30 days. NAVID placed call back to Rhina to update her of this. Per Rhina she does have a bed available and can take pt today. NAVID updated Dr. Ruiz of this and informed pt of this. NAVID asked pt if she would like this worker to notify anyone of her discharge and per pt she has already been in contact with who she wants to know and denies wanting this worker to place a call to anyone else. Pt denied additional needs or concerns at this time. 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
--- NOTE | 2017-11-14 13:10 | PCM.TXEXTCAR ---
- Diet 11/14/17 06:00 Diet: No Gastric Stimulus/Low Residue Type of Dietary Supplement:: Ensure Complete Is pt able to select menu?: Yes - Routine Orders/Code Status Enema Type: Fleetz Enema Frequency: Daily PRN Suppository Type: Dulcolax 10mg Suppository Frequency: Daily PRN O2 Liters per Minute: 2 O2 Frequency: PRN Keep PO Greater than or Equal to (%): 89 Routine Lab Work: - Code Status: Full Code - Wound(s) BACK Wound Type: puncture from surgery Dressing Change: Dry Sterile Dressing - Therapies Weight Bearing: Full weight bearing Physical Therapy: Eval and Treat Occupational Therapy: Eval and Treat - Problem/Diagnosis (1) Acute ischemic colitis Status: Acute Current Visit: Yes (2) Obstipation Status: Acute Current Visit: Yes (3) Pleural effusion Status: Acute Current Visit: Yes (4) Hypoxemia Status: Acute Current Visit: Yes (5) Pneumonia Status: Suspected Comment: R base Current Visit: Yes (6) Compression fracture Status: Acute Comment: T12 Current Visit: Yes (7) Osteopenia Status: Chronic Current Visit: Yes (8) Debility Status: Chronic Current Visit: Yes (9) HTN (hypertension) Status: Chronic Current Visit: Yes (10) Diverticulosis Status: Chronic Current Visit: Yes (11) Hemorrhoids Status: Chronic Current Visit: Yes (12) GERD (gastroesophageal reflux disease) Status: Chronic Current Visit: Yes (13) Hypokalemia Status: Acute Current Visit: Yes (14) Former smoker Status: Acute Current Visit: Yes (15) Dilated gallbladder Status: Acute Comment: with no stones Current Visit: Yes (16) Diastolic dysfunction Status: Chronic Comment: Stage II Current Visit: Yes (17) Mild pulmonary hypertension Status: Chronic Comment: RV pressure estimated at 35 Current Visit: Yes - Allergies/Procedures Done in Hospital Allergies/Adverse Reactions: Allergies oxycodone [From Percocet] Adverse Reaction (Verified 11/06/17 09:42) Upset Stomach sulfamethoxazole [From Bactrim] Adverse Reaction (Verified 11/06/17 09:42) Upset Stomach trimethoprim [From Bactrim] Adverse Reaction (Verified 11/06/17 09:42) Upset Stomach Procedures: 2-D Echocardiogram - 65% ejection fraction with stage II diastolic dysfunction and mild pulmonary hypertension with a right ventricular systolic pressure estimated at 35. No significant valvular heart disease., - - Colonoscopy for [address] Blake - Type of Care/Length of Stay Estimated LOS: Convalescent Care Less Than 30 days Type of Care Needed: Skilled Rehab Potential: Good Prognosis: Good - Additional Orders/Day of Discharge Additional Orders: She has 12 steps at home and must be able to do stairs prior to returning home H&P will serve as current which was dated: 11/06/17 Day of Discharge: 11/14/17 - Dietary and Speech Recommendations Dietitian Recommendations/Changes: Rec PEDRO to cardiac/low cholesterol when able to resume po diet. Ensure Clear w/ medpass while on clear liquid diet if OK w/ Dr. Graves. - Follow Up Care Primary Care Physician: Jarek Alvarez MD [Primary Care Provider] - Please follow up with your Primary Care Physician in: following DC from TCU Please Follow Up With: Lauri Cage MD When: 2 weeks Please Follow Up With: Bryce Graves MD When: 2-3 weeks
[2017-11-14 13:24] VITALS: BP 165/82; PULSE 61; RESP 16; TEMP 36.7; O2SAT 93
--- NOTE | 2017-11-14 13:26 | PCM.DC.SUM ---
Discharge Date and Diagnosis - Problem List Patient Problems: Active and Suspected Problems Fall (Acute) Back pain (Acute) T12 compression fracture (Acute) Constipation (Acute) Ischemic colitis (Acute) Date of Admission: 11/06/17 Date of Discharge: 11/14/17 - Primary Discharge Diagnosis Active and Suspected Problems T12 vertebral Compression fracture (Acute) Obstipation Ischemic Colitis hypoxemia BL Pleural effusions Hypokalemia Suspected R basilar pneumonia - Secondary Discharge Diagnosis Chronic Problems Debility (Chronic) HTN (hypertension) (Chronic) Former smoker Osteopenia Chronic constipation Diverticulosis Hx of colon polyps GERD Dilated GB Diastolic dysfunction stage II Mild pulmonary hypertension with an RV systolic estimated at 35 Hospital Course and Treatment Imaging Results: Clinical Impression(s) from Imaging Studies Lumbar Spine CT 11/06/17 10:22 IMPRESSION: Acute moderate fracture at T12 with minimal retropulsion. Further evaluation with MRI can be obtained. Electronically Signed: Ru Del Rosario MD at 11:54 EDT Tel , Service support , Abdomen X-Ray 11/09/17 20:13 IMPRESSION: There is a moderate amount of colonic fecal material. Electronically Signed: Alina Hebert MD at 1:14 EDT Tel , Service support , Thoracic Spine X-Ray 11/10/17 14:30 IMPRESSION: Successful kyphoplasty Electronically Signed: Otoniel Resendiz MD at 16:09 EDT , Service support , Abdomen/Pelvis CT 11/11/17 11:26 IMPRESSION: Postoperative small bowel ileus. There is either a mild colitis of the proximal: Gastroenteritis. Moderate bilateral pleural effusions. Lower lobe pneumonia. Gallbladder is dilated at 58 mm in diameter. There are no visible calcified gallstones. Findings may suggest hydropic gallbladder Other findings as above. Electronically Signed: Otoniel Resendiz MD at 18:25 EDT , Service support , ADDENDUM: 11/11/171955 IMPRESSION: Postoperative small bowel ileus. There is either a mild colitis of the proximal colon vs a Gastroenteritis. Moderate bilateral pleural effusions. Lower lobe pneumonia. Gallbladder is dilated at 58 mm in diameter. There are no visible calcified gallstones. Findings may suggest hydropic gallbladder Other findings as above. Electronically Signed: Otoniel Resendiz MD at 19:49 EDT , Service support , Chest X-Ray 11/11/17 14:33 IMPRESSION: Small bilateral pleural effusions. Right lower lobe pneumonia. Left lower lobe platelike atelectasis. Electronically Signed: Otoniel Resendiz MD at 16:13 EDT , Service support , Abdomen X-Ray 11/11/17 19:15 IMPRESSION: There is appearance of a colonic ileus. There is no free air. Electronically Signed: Otoniel Resendiz MD at 19:47 EDT , Service support , Abdomen X-Ray 11/12/17 05:00 IMPRESSION: No acute findings in the abdomen/pelvis Electronically Signed: Danielito Jacob at 5:22 EDT Tel , Service support , Chest X-Ray 11/13/17 12:34 IMPRESSION: Bibasilar atelectasis and/or early infiltrate with small bilateral pleural effusions. There has been mild degree of progression as compared to prior study. Electronically Signed: Hosae Ram MD at 13:56 EDT Tel [phone], Service support , Laboratory Results - last 24 hr 11/14/17 11/14/17 05:30 05:30 WBC 6.9 RBC 3.74 L Hgb 11.0 L Hct 33.9 L MCV 90.6 MCH 29.4 MCHC 32.4 RDW 15.0 H RDW Differential 48.9 H Plt Count 418 MPV 10.0 Immature Gran % (Auto) 0.300 Neut % (Auto) 64.1 Lymph % (Auto) 18.8 L [place] % (Auto) 8.5 Eos % (Auto) 7.9 H Baso % (Auto) 0.4 Absolute Neuts (auto) 4.4 Absolute Lymphs (auto) 1.30 Total Counted Not Reportable Sodium 141 Potassium 3.8 Chloride 109 H Carbon Dioxide 23.0 Anion Gap 9 BUN 5 L Creatinine 0.56 Estim Creat Clear Calc 57.02 Est GFR (MDRD) Af Amer 136 Est GFR (MDRD) Non-Af 112 BUN/Creatinine Ratio 8.9 L Glucose [address] Lauri Cage-pain management Dr. Bryce Graves-[facility] general surgery Procedures: 2-D Echocardiogram - 35% ejection fraction, stage II diastolic dysfunction, right ventricular systolic pressure of 35, trivial TR and trivial MR, Colonoscopy - 11/11/[address] Blake. Significant cecal distention, ischemic changes from the transverse colon to the splenic flexure consistent with pressure ischemic changes from colonic distention Summary of Care Provided: The patient is a 72YO female admitted with intractable back pain. She had a fall the preceding Friday and had been having severe back pain that was limiting her ADL's and ability to ambulate. She was seen in the ER on 11/04/17 and Xrays were negative for fracture. She returned to the ED on 11/06/2017 stating she could not tolerate the pain and needed something stronger than Tylenol. CT scan of the lumbar spine showed an acute fracture at T12 with minimal retropulsion of the inferior posterior endplate. There was no significant central canal stenosis noted. She had multilevel endplate spondylosis of the lumbar spine. There was also multilevel degenerative disc disease with multilevel disc space narrowing, most prominent at L2/L3. She denied any radiation of the pain into her legs. She recently had a short course of steroids for radiculitis of the leg and this completely resolved. She denied any fecal incontinence or urine incontinence other than not making it to the BR in time to urinate because she has a slow antalgic gait. She was admitted to the hospital and Pain medication was ordered. Consult was obtained with Dr. Cage and she was scheduled for a Kyphoplasty on 11/10/2017. She was seen by physical therapy and occupational therapy and had daily therapy while in the hospital. She became constipated and multiple efforts including enemas, GoLYTELY, magnesium citrate etc. were not effective in producing a bowel movement. On 11/11/2017 her abdomen was distended and painful. Rectal exam showed hemorrhoids and a very tight anal opening. The was no stool in the rectal vault. CT scan of the abdomen was obtained and showed a small bowel ileus and moderate bilateral pleural effusions with lower lobe atelectasis versus pneumonia. The gallbladder was dilated at 58 mm with no obvious gallstones. There was a large amount of stool in the colon. There were multiple diverticuli. The cecum was dilated at 9cm. Labs showed an elevated white blood cell count at 23,000 with a left shift and she was started on Zosyn. Dr. Graves was consulted and the patient had an emergent colonoscopy on 11/11/2017. Postoperative diagnoses included obstipation, significant cecal distention, ischemic changes from the transverse colon to the splenic flexure consistent with pressure ischemic change from colonic distention. Zosyn was continued and she was kept n.p.o. for the next 24 hours. Diet was gradually advanced as tolerated. He was able to have bowel movements. She was kept on MiraLAX as needed laxatives. She was able to ambulate in the halls well with a front wheeled walker however she has 12 steps to go home and she was unable to do steps. On 11/14/2017 she was transferred to the transitional care unit for further PT/OT prior to returning home. Her back pain was adequately controlled. She will stay on MiraLAX. This note was generated with [employer] dictation software. It may contain incorrect words, spelling, and punctuation that were not noted in checking the note before signing. Home Medications: Medications to take at Discharge Calcium Carbonate/Vitamin D3 [Calcium 600-Vit D3 400 Tablet] 1 each PO BID 11/06/17 Cholecalciferol (Vitamin D3) [Vitamin D3] 400 unit PO DAILY 11/06/17 Multivits,Ca,Minerals/Iron/FA [Women's Daily Formula Caplet] 1 each PO DAILY 11/06/17 Omeprazole [Prilosec] 20 mg PO DAILY PRN 11/06/17 Vit A/Vit C/Vit E/Zinc/Copper [Preservision Areds Softgel] 1 each PO DAILY 11/06/17 Acetaminophen [Tylenol] 1,000 mg PO Q8 11/14/17 Levofloxacin [Levaquin] 500 mg PO DAILY 11/14/17 Lisinopril [Zestril] 40 mg PO DAILY 11/14/17 Mag Hydrox/Al Hydrox/Simeth [Mylanta II] 30 ml PO Q4H PRN PRN udc 11/14/17 Magnesium Hydroxide [Milk Of Magnesia] 30 ml PO DAILY PRN PRN udc 11/14/17 Metronidazole [Flagyl] 500 mg PO TID 11/14/17 Multivitamins,Ther W-Minerals [Multivitamin With Minerals] 1 tablet PO DAILYCM 11/14/17 Oxycodone [Oxyir] 5 mg PO Q4H PRN PRN #30 tab 11/14/17 Polyethylene Glycol 3350 [Miralax] 17 gm PO DAILY 11/14/17 Following Prescrptions Were Given to Patient: Oxycodone [Oxyir] 5 mg PO Q4H PRN PRN #30 tab PRN Reason: Severe Pain (6-10/10) Primary Care Physician: Jarek Alvarez MD [Primary Care Provider] - Please follow up with your Primary Care Physician in: following DC from TCU Please Follow Up With: Lauri Cage MD When: 2 weeks Please Follow Up With: Bryce Graves MD When: 2-3 weeks Disposition: Home Minutes spent on discharge:: 38 Patient Condition:: Good Medical Necessity - Tobacco Use Smoking Status: Former smoker Tobacco Use: Non-smoker Meaningful Use Info Meaningful Use Diagnoses (Choose all that apply): None applicable
--- NOTE | 2017-11-14 13:31 | DS.PCM_ITS ---
Discharge Date and Diagnosis - Problem List Patient Problems: Active and Suspected Problems Fall (Acute) Back pain (Acute) T12 compression fracture (Acute) Constipation (Acute) Ischemic colitis (Acute) Date of Admission: 11/06/17 Date of Discharge: 11/14/17 - Primary Discharge Diagnosis Active and Suspected Problems T12 vertebral Compression fracture (Acute) Obstipation Ischemic Colitis hypoxemia BL Pleural effusions Hypokalemia Suspected R basilar pneumonia - Secondary Discharge Diagnosis Chronic Problems Debility (Chronic) HTN (hypertension) (Chronic) Former smoker Osteopenia Chronic constipation Diverticulosis Hx of colon polyps GERD Dilated GB Diastolic dysfunction stage II Mild pulmonary hypertension with an RV systolic estimated at 35 Hospital Course and Treatment Imaging Results: Clinical Impression(s) from Imaging Studies Lumbar Spine CT 11/06/17 10:22 IMPRESSION: Acute moderate fracture at T12 with minimal retropulsion. Further evaluation with MRI can be obtained. Electronically Signed: Ru Del Rosario MD at 11:54 EDT Tel , Service support , Abdomen X-Ray 11/09/17 20:13 IMPRESSION: There is a moderate amount of colonic fecal material. Electronically Signed: Alina Hebert MD at 1:14 EDT Tel , Service support , Thoracic Spine X-Ray 11/10/17 14:30 IMPRESSION: Successful kyphoplasty Electronically Signed: Otoniel Resendiz MD at 16:09 EDT , Service support , Abdomen/Pelvis CT 11/11/17 11:26 IMPRESSION: Postoperative small bowel ileus. There is either a mild colitis of the proximal: Gastroenteritis. Moderate bilateral pleural effusions. Lower lobe pneumonia. Gallbladder is dilated at 58 mm in diameter. There are no visible calcified gallstones. Findings may suggest hydropic gallbladder Other findings as above. Electronically Signed: Otoniel Resendiz MD at 18:25 EDT , Service support , ADDENDUM: 11/11/171955 IMPRESSION: Postoperative small bowel ileus. There is either a mild colitis of the proximal colon vs a Gastroenteritis. Moderate bilateral pleural effusions. Lower lobe pneumonia. Gallbladder is dilated at 58 mm in diameter. There are no visible calcified gallstones. Findings may suggest hydropic gallbladder Other findings as above. Electronically Signed: Otoniel Resendiz MD at 19:49 EDT , Service support , Chest X-Ray 11/11/17 14:33 IMPRESSION: Small bilateral pleural effusions. Right lower lobe pneumonia. Left lower lobe platelike atelectasis. Electronically Signed: Otoniel Resendiz MD at 16:13 EDT , Service support , Abdomen X-Ray 11/11/17 19:15 IMPRESSION: There is appearance of a colonic ileus. There is no free air. Electronically Signed: Otoniel Resendiz MD at 19:47 EDT , Service support , Abdomen X-Ray 11/12/17 05:00 IMPRESSION: No acute findings in the abdomen/pelvis Electronically Signed: Danielito Jacob at 5:22 EDT Tel , Service support , Chest X-Ray 11/13/17 12:34 IMPRESSION: Bibasilar atelectasis and/or early infiltrate with small bilateral pleural effusions. There has been mild degree of progression as compared to prior study. Electronically Signed: Hosea Ram MD at 13:56 EDT Tel [phone], Service support , Laboratory Results - last 24 hr 11/14/17 11/14/17 05:30 05:30 WBC 6.9 RBC 3.74 L Hgb 11.0 L Hct 33.9 L MCV 90.6 MCH 29.4 MCHC 32.4 RDW 15.0 H RDW Differential 48.9 H Plt Count 418 MPV 10.0 Immature Gran % (Auto) 0.300 Neut % (Auto) 64.1 Lymph % (Auto) 18.8 L Pleas[place] % (Auto) 8.5 Eos % (Auto) 7.9 H Baso % (Auto) 0.4 Absolute Neuts (auto) 4.4 Absolute Lymphs (auto) 1.30 Total Counted Not Reportable Sodium 141 Potassium 3.8 Chloride 109 H Carbon Dioxide 23.0 Anion Gap 9 BUN 5 L Creatinine 0.56 Estim Creat Clear Calc 57.02 Est GFR (MDRD) Af Amer 136 Est GFR (MDRD) Non-Af 112 BUN/Creatinine Ratio 8.9 L Glucose [address] Lauri Cage-pain management Dr. Bryce Graves-[facility] general surgery Procedures: 2-D Echocardiogram - 35% ejection fraction, stage II diastolic dysfunction, right ventricular systolic pressure of 35, trivial TR and trivial MR, Colonoscopy - 11/11/[address] Blake. Significant cecal distention, ischemic changes from the transverse colon to the splenic flexure consistent with pressure ischemic changes from colonic distention Summary of Care Provided: The patient is a 72YO female admitted with intractable back pain. She had a fall the preceding Friday and had been having severe back pain that was limiting her ADL's and ability to ambulate. She was seen in the ER on 11/04/17 and Xrays were negative for fracture. She returned to the ED on 11/06/2017 stating she could not tolerate the pain and needed something stronger than Tylenol. CT scan of the lumbar spine showed an acute fracture at T12 with minimal retropulsion of the inferior posterior endplate. There was no significant central canal stenosis noted. She had multilevel endplate spondylosis of the lumbar spine. There was also multilevel degenerative disc disease with multilevel disc space narrowing, most prominent at L2/L3. She denied any radiation of the pain into her legs. She recently had a short course of steroids for radiculitis of the leg and this completely resolved. She denied any fecal incontinence or urine incontinence other than not making it to the BR in time to urinate because she has a slow antalgic gait. She was admitted to the hospital and Pain medication was ordered. Consult was obtained with Dr. Cage and she was scheduled for a Kyphoplasty on 11/10/2017. She was seen by physical therapy and occupational therapy and had daily therapy while in the hospital. She became constipated and multiple efforts including enemas, GoLYTELY, magnesium citrate etc. were not effective in producing a bowel movement. On 11/11/2017 her abdomen was distended and painful. Rectal exam showed hemorrhoids and a very tight anal opening. The was no stool in the rectal vault. CT scan of the abdomen was obtained and showed a small bowel ileus and moderate bilateral pleural effusions with lower lobe atelectasis versus pneumonia. The gallbladder was dilated at 58 mm with no obvious gallstones. There was a large amount of stool in the colon. There were multiple diverticuli. The cecum was dilated at 9cm. Labs showed an elevated white blood cell count at 23,000 with a left shift and she was started on Zosyn. Dr. Graves was consulted and the patient had an emergent colonoscopy on 11/11/2017. Postoperative diagnoses included obstipation, significant cecal distention, ischemic changes from the transverse colon to the splenic flexure consistent with pressure ischemic change from colonic distention. Zosyn was continued and she was kept n.p.o. for the next 24 hours. Diet was gradually advanced as tolerated. He was able to have bowel movements. She was kept on MiraLAX as needed laxatives. She was able to ambulate in the halls well with a front wheeled walker however she has 12 steps to go home and she was unable to do steps. On 11/14/2017 she was transferred to the transitional care unit for further PT/OT prior to returning home. Her back pain was adequately controlled. She will stay on MiraLAX. This note was generated with Geron dictation software. It may contain incorrect words, spelling, and punctuation that were not noted in checking the note before signing. Home Medications: Medications to take at Discharge Calcium Carbonate/Vitamin D3 [Calcium 600-Vit D3 400 Tablet] 1 each PO BID 11/06 Cholecalciferol (Vitamin D3) [Vitamin D3] 400 unit PO DAILY 11/06/17 Multivits,Ca,Minerals/Iron/FA [Women's Daily Formula Caplet] 1 each PO DAILY 12/19 Omeprazole [Prilosec] 20 mg PO DAILY PRN 11/06/17 Vit A/Vit C/Vit E/Zinc/Copper [Preservision Areds Softgel] 1 each PO DAILY 11/06 Acetaminophen [Tylenol] 1,000 mg PO Q8 11/14/17 Levofloxacin [Levaquin] 500 mg PO DAILY 11/14/17 Lisinopril [Zestril] 40 mg PO DAILY 11/14/17 Mag Hydrox/Al Hydrox/Simeth [Mylanta II] 30 ml PO Q4H PRN PRN udc 11/14/17 Magnesium Hydroxide [Milk Of Magnesia] 30 ml PO DAILY PRN PRN udc 11/14/17 Metronidazole [Flagyl] 500 mg PO TID 11/14/17 Multivitamins,Ther W-Minerals [Multivitamin With Minerals] 1 tablet PO DAILYCM 11/14/17 Oxycodone [Oxyir] 5 mg PO Q4H PRN PRN #30 tab 11/14/17 Polyethylene Glycol 3350 [Miralax] 17 gm PO DAILY 11/14/17 Following Prescrptions Were Given to Patient: Oxycodone [Oxyir] 5 mg PO Q4H PRN PRN #30 tab PRN Reason: Severe Pain (6-10/10) Primary Care Physician: Jarek Alvaerz MD [Primary Care Provider] - Please follow up with your Primary Care Physician in: following DC from TCU Please Follow Up With: Lauri Cage MD When: 2 weeks Please Follow Up With: Bryce Graves MD When: 2-3 weeks Disposition: Home Minutes spent on discharge:: 38 Patient Condition:: Good Medical Necessity - Tobacco Use Smoking Status: Former smoker Tobacco Use: Non-smoker Meaningful Use Info Meaningful Use Diagnoses (Choose all that apply): None applicable
--- NOTE | 2017-11-14 14:02 | NURSING ---
REPORT CALLED TO AARTI IN TCU. PT WILL TRANSFER TO BED 9
== END 2017-11-14 14:17 | disposition skilled nursing facility (03) | DRG 477 ==
LOC: ED 10:47 → MS3 13:08
PROVIDERS: Anesthesiology; Anesthesiology Pain Medicine; Family Medicine; Physician Assistant; Surgery; Admitting Provider Internal Medicine; Emergency Provider Emergency Medicine; Family Provider Family Medicine; PCP Family Medicine; Visit Provider Internal Medicine
PROC: 0DJD8ZZ Inspection of Lower Intestinal Tract, Via Natural or Artificial Opening Endoscopic (ICD-10-PCS; CPT 45378; principal; 2017-11-11 18:00)
DX: S22.088D Other fracture of T11-T12 vertebra, subsequent encounter for fracture with routine healing (principal); K55.039 Acute (reversible) ischemia of large intestine, extent unspecified; J90 Pleural effusion, not elsewhere classified; K92.1 Melena; J98.11 Atelectasis; W18.30XD Fall on same level, unspecified, subsequent encounter; I10 Essential (primary) hypertension; M47.816 Spondylosis without myelopathy or radiculopathy, lumbar region; M51.36 Other intervertebral disc degeneration, lumbar region; K21.9 Gastro-esophageal reflux disease without esophagitis; M85.88 Other specified disorders of bone density and structure, other site; R53.81 Other malaise; Z79.899 Other long term (current) drug therapy; Z87.891 Personal history of nicotine dependence; E87.6 Hypokalemia; E86.0 Dehydration; D72.829 Elevated white blood cell count, unspecified; Z86.010 Personal history of colon polyps; K64.8 Other hemorrhoids; K64.5 Perianal venous thrombosis; R09.02 Hypoxemia; K59.09 Other constipation; K57.30 Diverticulosis of large intestine without perforation or abscess without bleeding; K82.8 Other specified diseases of gallbladder; R94.4 Abnormal results of kidney function studies; I27.20 Pulmonary hypertension, unspecified; I51.89 Other ill-defined heart diseases; S29.012A Strain of muscle and tendon of back wall of thorax, initial encounter; S39.012A Strain of muscle, fascia and tendon of lower back, initial encounter; W18.30XA Fall on same level, unspecified, initial encounter; Y93.89 Activity, other specified; Y92.008 Other place in unspecified non-institutional (private) residence as the place of occurrence of the external cause; Y99.8 Other external cause status; K62.4 Stenosis of anus and rectum
CPT/HCPCS: 36415; 71046; 72070; 72072; 72100; 72131; 74019; 74177; 76000; 80048; 80053; 81001; 82274; 82306; 83605; 83735; 83880; 84100; 84484; 85025; 85730; 93005; 93306; 97110; 97116; 97162; 97165; 97530; 97535; 97802; 99283; 99285; J7030; J7040; J7120; Q9967; A4216; J1940; J2405

== ENCOUNTER 2017-11-14 14:20 | Inpatient (IN) | payer MEDICARE, SELFPAY ==
[2017-11-14 14:58] VITALS: BP 159/76; PULSE 64; RESP 20; TEMP 37; O2SAT 96
--- NOTE | 2017-11-14 14:58 | NURSING ---
Pt arrived at 14:20 from [facility] via [facility]
--- NOTE | 2017-11-14 15:15 | PCM.HP.STD ---
Problem List (1) Fall Status: Acute (2) Back pain Status: Acute (3) T12 compression fracture Status: Acute (4) Constipation Status: Acute (5) Ischemic colitis Status: Acute (6) Debility Status: Chronic (7) HTN (hypertension) Status: Chronic (8) Osteopenia Status: Chronic (9) Obstipation Status: Acute History of Present Illness Date of Admission: 11/14/17 Chief Complaint: Here for rehabilitation, strengthening, prior to discharge home alone. The patient is a 72 year old Female with below past medical history presented to [facility] Emergency Department 11/06/2017 with back pain. 11/06/2017 CT lumbar spine showed acute T12 compression fracture. Fell 2 days ago, back pain, presented to [facility] ED, X-rays negative, discharged on Tylenol, pain worse. Tylenol not helping. CBCD, BMP okay, UA negative. Morphine, Phenergan, Normal saline given. Difficulty ambulating. 11/06/2017 Admit to Hospital. PT/OT for T12 compression fracture, pain control. IV potassium for hypokalemia. PRN laxatives for opiates. Central canal stenosis, noted on CT spine. 11/07/2017 Dr. Cage recommends kyphoplasty. 11/08/2017 Soap suds enema for constipation. 11/09/2017 Golytely for constipation. 11/10/2017 Dr. Cage performed successful kyphoplasty. 11/11/2017 CT abdomen/pelvis small bowel ileus, mild colitis versus gastroenteritis, moderate bilateral pleural effusions, lower lobe pneumonia, gallbladder hydrops. 11/11/2017 Dr. Graves recommended IV Zosyn, ischemic colitis. 11/11/2017 Dr. Graves performed decompressive colonoscopy with marker clip placed distal to ischemic changes. 11/12/2017 Echo EF 65%. Stage 2 diastolic dysfunction. Right ventricular systolic pressure 35mm HG. 11/13/2017 Chest X-ray Bibasilar atelectasis/infiltrate, with small bilateral pleural effusions. Back pain improved with kyphoplasty. Stool guaiac positive. Zosyn for colitis. Obstipation resolved. 11/14/2017 Admit to TCU for rehabilitation, strengthening, prior to discharge home alone. Past Medical History Past Medical History (Chronic Problems): Chronic Problems Debility (Chronic) HTN (hypertension) (Chronic) Osteopenia (Chronic) Diverticulosis (Chronic) Hemorrhoids (Chronic) GERD (gastroesophageal reflux disease) (Chronic) Diastolic dysfunction (Chronic) Stage II Mild pulmonary hypertension (Chronic) RV pressure estimated at 35 Allergies oxycodone [From Percocet] Adverse Reaction (Verified 11/06/17 09:42) Upset Stomach sulfamethoxazole [From Bactrim] Adverse Reaction (Verified 11/06/17 09:42) Upset Stomach trimethoprim [From Bactrim] Adverse Reaction (Verified 11/06/17 09:42) Upset Stomach Home Medications: Ambulatory Orders Medication Instructions Recorded Calcium Carbonate/Vitamin D3 1 each PO BID 11/06/17 [Calcium 600-Vit D3 400 Tablet] Cholecalciferol (Vitamin D3) 400 unit PO DAILY 11/06/17 [Vitamin D3] Multivits,Ca,Minerals/Iron/FA 1 each PO DAILY 11/06/17 [Women's Daily Formula Caplet] Omeprazole [Prilosec] 20 mg PO DAILY PRN 11/06/17 Vit A/Vit C/Vit E/Zinc/Copper 1 each PO DAILY 11/06/17 [Preservision Areds Softgel] Acetaminophen [Tylenol] 1,000 mg PO Q8 11/14/17 Levofloxacin [Levaquin] 500 mg PO DAILY 11/14/17 Lisinopril [Zestril] 40 mg PO DAILY 11/14/17 Mag Hydrox/Al Hydrox/Simeth 30 ml PO Q4H PRN PRN udc 11/14/17 [Mylanta II] Magnesium Hydroxide [Milk Of 30 ml PO DAILY PRN PRN udc 11/14/17 Magnesia] Metronidazole [Flagyl] 500 mg PO TID 11/14/17 Multivitamins,Ther W-Minerals 1 tablet PO DAILYCM 11/14/17 [Multivitamin With Minerals] Oxycodone [Oxyir] 5 mg PO Q4H PRN PRN #30 tab 11/14/17 Polyethylene Glycol 3350 [Miralax] 17 gm PO DAILY 11/14/17 Surgical History: hysterectomy, total hip arthroplasty - right, tonsillectomy, - - Hemorrhoidectomy 3 years previously Psychiatric History: No pertinent psych hx [employer] 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 Lives: Alone Smoking Status: Former smoker Tobacco Use: Non-smoker Alcohol: None Drugs: None - *Family History Maternal History Items: Cancer - liver Paternal History Items: Hypertension Review of Systems Constitutional: Denies: Chills, Fever, Weight Change HEENT: Denies: Head Aches, Sinus Congestion, Sinus Drainage Cardiovascular: Denies: Chest Pain, Palpitations Respiratory: Denies: Cough, Shortness of breath at rest, Sputum production Gastrointestinal: Denies: Abdominal Pain, Nausea, Vomiting Genitourinary: Denies: Dysuria Musculoskeletal: Denies: Joint Pain, Joint Tenderness Skin: Denies: Rash, Wounds Neurological: Denies: Numbness, Tingling, Focal weakness Psychiatric: Denies: Anxiety, Depression, Homicidal Ideations, Suicidal Ideations Hematologic/ Lymphatic: Denies: Easy Bruising, Easy Bleeding VTE Information - Inpt Only VTE Present on Admission: No VTE Mechan Device Prophylaxis: Knee High LISSETT Hose VTE Pharm Prophylaxis ordered?: Yes Patient Problems: Active and Suspected Problems Fall (Acute) Back pain (Acute) T12 compression fracture (Acute) Constipation (Acute) Ischemic colitis (Acute) - Physical Exam General: Alert, Oriented x3, Cooperative HEENT: Atraumatic, PERRLA, EOMI, Normocephalic Neck: Supple, No JVD, Negative Carotid Bruits Lungs: Clear to auscultation, Normal air movement Cardiovascular: Regular rate, No murmurs Abdomen: Bowel Sounds Present, Soft, Non Tender Extremities: No edema, Capillary Refill Less than 3 Seconds Skin: No rashes, No breakdown Musculoskeletal: No Tenderness to Palpation of Joints or Extremities Neurological: Cranial nerves II-XII grossly intact Psych/Mental Status: Normal Affect, Appropriate Assessment/Plan Active and Suspected Problems Fall (Acute) Back pain (Acute) T12 compression fracture (Acute) Constipation (Acute) Ischemic colitis (Acute) 72 year old female with below past medical history hospitalized for intractable back pain secondary to acute T12 compression fracture, improved with kyphoplasty per Dr. Cage complicated by constipation, obstipation, ischemic colitis requiring decompressive colonoscopy, intravenous antibiotics, admitted to TCU for rehabilitation, strengthening, prior to discharge home alone. Debility - PT/OT. Pain - Tylenol 1000MG Q8H, Oxycodone 5MG Q4H PRN severe pain. Bowel - Miralax 17GM daily, Senna/colace 2 tablets BID, Dulcolax 10MG SD daily PRN. Pneumonia vaccination - Administer Prevnar 13 and/or Pneumovax 23 as necessary. DVT prophylaxis - Lovenox 40MG SC daily. Calcium deficiency - Calcium 1 tablet BID. Vitamin D deficiency - D3 400IU daily. Nutrition - Ensure Enlive 120ML 4x/day, MVI daily, Ocuvite 1 tablet daily. Colitis - Levaquin 500MG daily thru 11/19/2017, Flagyl 500MG TID thru 11/18/2017. Hypertension - Lisinopril 40MG daily. GERD - Pantoprazole 20MG daily, Mylanta II 30ML Q4H PRN. T12 compression fracture - Pain improved after kyphoplasty.
[2017-11-14 15:20] VITALS: BMI 30.7
[2017-11-14 15:24] VITALS: BMI 30.7
--- NOTE | 2017-11-14 15:32 | HP.PCM_ITS ---
Problem List (1) Fall Status: Acute (2) Back pain Status: Acute (3) T12 compression fracture Status: Acute (4) Constipation Status: Acute (5) Ischemic colitis Status: Acute (6) Debility Status: Chronic (7) HTN (hypertension) Status: Chronic (8) Osteopenia Status: Chronic (9) Obstipation Status: Acute History of Present Illness Date of Admission: 11/14/17 Chief Complaint: Here for rehabilitation, strengthening, prior to discharge home alone. The patient is a 72 year old Female with below past medical history presented to [facility] Emergency Department 11/06/2017 with back pain. 11/06/2017 CT lumbar spine showed acute T12 compression fracture. Fell 2 days ago, back pain, presented to [facility] ED, X-rays negative, discharged on Tylenol, pain worse. Tylenol not helping. CBCD, BMP okay, UA negative. Morphine, Phenergan, Normal saline given. Difficulty ambulating. 11/06/2017 Admit to Hospital. PT/OT for T12 compression fracture, pain control. IV potassium for hypokalemia. PRN laxatives for opiates. Central canal stenosis, noted on CT spine. 11/07/2017 Dr. Cage recommends kyphoplasty. 11/08/2017 Soap suds enema for constipation. 11/09/2017 Golytely for constipation. 11/10/2017 Dr. Cage performed successful kyphoplasty. 11/11/2017 CT abdomen/pelvis small bowel ileus, mild colitis versus gastroenteritis, moderate bilateral pleural effusions, lower lobe pneumonia, gallbladder hydrops. 11/11/2017 Dr. Graves recommended IV Zosyn, ischemic colitis. 11/11/2017 Dr. Graves performed decompressive colonoscopy with marker clip placed distal to ischemic changes. 11/12/2017 Echo EF 65%. Stage 2 diastolic dysfunction. Right ventricular systolic pressure 35mm HG. 11/13/2017 Chest X-ray Bibasilar atelectasis/infiltrate, with small bilateral pleural effusions. Back pain improved with kyphoplasty. Stool guaiac positive. Zosyn for colitis. Obstipation resolved. 11/14/2017 Admit to TCU for rehabilitation, strengthening, prior to discharge home alone. Past Medical History Past Medical History (Chronic Problems): Chronic Problems Debility (Chronic) HTN (hypertension) (Chronic) Osteopenia (Chronic) Diverticulosis (Chronic) Hemorrhoids (Chronic) GERD (gastroesophageal reflux disease) (Chronic) Diastolic dysfunction (Chronic) Stage II Mild pulmonary hypertension (Chronic) RV pressure estimated at 35 Allergies oxycodone [From Percocet] Adverse Reaction (Verified 11/06/17 09:42) Upset Stomach sulfamethoxazole [From Bactrim] Adverse Reaction (Verified 11/06/17 09:42) Upset Stomach trimethoprim [From Bactrim] Adverse Reaction (Verified 11/06/17 09:42) Upset Stomach Home Medications: Ambulatory Orders Medication Instructions Recorded Calcium Carbonate/Vitamin D3 1 each PO BID 11/06/17 [Calcium 600-Vit D3 400 Tablet] Cholecalciferol (Vitamin D3) 400 unit PO DAILY 11/06/17 [Vitamin D3] Multivits,Ca,Minerals/Iron/FA 1 each PO DAILY 11/06/17 [Women's Daily Formula Caplet] Omeprazole [Prilosec] 20 mg PO DAILY PRN 11/06/17 Vit A/Vit C/Vit E/Zinc/Copper 1 each PO DAILY 11/06/17 [Preservision Areds Softgel] Acetaminophen [Tylenol] 1,000 mg PO Q8 11/14/17 Levofloxacin [Levaquin] 500 mg PO DAILY 11/14/17 Lisinopril [Zestril] 40 mg PO DAILY 11/14/17 Mag Hydrox/Al Hydrox/Simeth 30 ml PO Q4H PRN PRN udc 11/14/17 [Mylanta II] Magnesium Hydroxide [Milk Of 30 ml PO DAILY PRN PRN udc 11/14/17 Magnesia] Metronidazole [Flagyl] 500 mg PO TID 11/14/17 Multivitamins,Ther W-Minerals 1 tablet PO DAILYCM 11/14/17 [Multivitamin With Minerals] Oxycodone [Oxyir] 5 mg PO Q4H PRN PRN #30 tab 11/14/17 Polyethylene Glycol 3350 [Miralax] 17 gm PO DAILY 11/14/17 Surgical History: hysterectomy, total hip arthroplasty - right, tonsillectomy, - - Hemorrhoidectomy 3 years previously 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 Lives: Alone Smoking Status: Former smoker Tobacco Use: Non-smoker Alcohol: None Drugs: None - *Family History Maternal History Items: Cancer - liver Paternal History Items: Hypertension Review of Systems Constitutional: Denies: Chills, Fever, Weight Change HEENT: Denies: Head Aches, Sinus Congestion, Sinus Drainage Cardiovascular: Denies: Chest Pain, Palpitations Respiratory: Denies: Cough, Shortness of breath at rest, Sputum production Gastrointestinal: Denies: Abdominal Pain, Nausea, Vomiting Genitourinary: Denies: Dysuria Musculoskeletal: Denies: Joint Pain, Joint Tenderness Skin: Denies: Rash, Wounds Neurological: Denies: Numbness, Tingling, Focal weakness Psychiatric: Denies: Anxiety, Depression, Homicidal Ideations, Suicidal Ideations Hematologic/ Lymphatic: Denies: Easy Bruising, Easy Bleeding VTE Information - Inpt Only VTE Present on Admission: No VTE Mechan Device Prophylaxis: Knee High LISSETT Hose VTE Pharm Prophylaxis ordered?: Yes Patient Problems: Active and Suspected Problems Fall (Acute) Back pain (Acute) T12 compression fracture (Acute) Constipation (Acute) Ischemic colitis (Acute) - Physical Exam General: Alert, Oriented x3, Cooperative HEENT: Atraumatic, PERRLA, EOMI, Normocephalic Neck: Supple, No JVD, Negative Carotid Bruits Lungs: Clear to auscultation, Normal air movement Cardiovascular: Regular rate, No murmurs Abdomen: Bowel Sounds Present, Soft, Non Tender Extremities: No edema, Capillary Refill Less than 3 Seconds Skin: No rashes, No breakdown Musculoskeletal: No Tenderness to Palpation of Joints or Extremities Neurological: Cranial nerves II-XII grossly intact Psych/Mental Status: Normal Affect, Appropriate Assessment/Plan Active and Suspected Problems Fall (Acute) Back pain (Acute) T12 compression fracture (Acute) Constipation (Acute) Ischemic colitis (Acute) 72 year old female with below past medical history hospitalized for intractable back pain secondary to acute T12 compression fracture, improved with kyphoplasty per Dr. Cage complicated by constipation, obstipation, ischemic colitis requiring decompressive colonoscopy, intravenous antibiotics, admitted to TCU for rehabilitation, strengthening, prior to discharge home alone. * Debility - PT/OT. * Pain - Tylenol 1000MG Q8H, Oxycodone 5MG Q4H PRN severe pain. * Bowel - Miralax 17GM daily, Senna/colace 2 tablets BID, Dulcolax 10MG WA daily PRN. * Pneumonia vaccination - Administer Prevnar 13 and/or Pneumovax 23 as necessary. * DVT prophylaxis - Lovenox 40MG SC daily. * Calcium deficiency - Calcium 1 tablet BID. * Vitamin D deficiency - D3 400IU daily. * Nutrition - Ensure Enlive 120ML 4x/day, MVI daily, Ocuvite 1 tablet daily. * Colitis - Levaquin 500MG daily thru 11/19/2017, Flagyl 500MG TID thru 2017. * Hypertension - Lisinopril 40MG daily. * GERD - Pantoprazole 20MG daily, Mylanta II 30ML Q4H PRN. * T12 compression fracture - Pain improved after kyphoplasty.
[2017-11-14 16:00] VITALS: BP 159/76; PULSE 64; RESP 20; TEMP 37; O2SAT 96
[2017-11-14] MEDS: Calcium Carb/Vitamin D 1 TABLET Tablet PO (16:52)
[2017-11-14] MEDS: metroNIDAZOLE 500 MG Tablet PO (19:58)
[2017-11-14] MEDS: Menthol/Lanolin/Calamine/Znox 113 GM Tube 1 APPLIC TOPICAL (19:58)
[2017-11-14] MEDS: Acetaminophen 500 MG Tablet 1000 MG PO (19:58)
[2017-11-15] MEDS: Pantoprazole Sodium 20 MG Tablet PO (05:20)
[2017-11-15] MEDS: Acetaminophen 500 MG Tablet 1000 MG PO ×3 (05:20→22:09)
[2017-11-15] MEDS: Lisinopril 40 MG Tablet PO (05:20)
[2017-11-15] MEDS: metroNIDAZOLE 500 MG Tablet PO ×3 (05:20→22:08)
[2017-11-15] MEDS: Enoxaparin 40 MG/0.4 ML Syringe SC (05:20)
[2017-11-15] MEDS: Polyethylene Glycol 3350 17 GM PACKET PO (05:21)
[2017-11-15] MEDS: levoFLOXacin 500 MG Tablet PO (05:21)
[2017-11-15] MEDS: Senna/Docusate Sodium 1 Tablet 2 TABLET PO (05:22)
[2017-11-15] MEDS: Menthol/Lanolin/Calamine/Znox 113 GM Tube 1 APPLIC TOPICAL ×2 (05:28→16:34)
[2017-11-15 08:36] LABS: Absolute Lymphocyte Count 1.11 X10^3/ul (0.83-4.51); Absolute Neutrophil Count 4.5 X10^3/uL (2.0-7.7); Basophil# 0.02 X10^3/uL; Basophil% 0.3 % (0-1); Eosinophil# 0.37 X10^3/uL; Eosinophils% 5.5 % (0-5); Hematocrit 37.5 % (37-47); Hemoglobin 12.4 g/dl (12.0-15.0); Lymphocyte # 1.11 X10^3/ul (4.0); Lymphocyte % 16.4 % (19-41); Mean Corp Hgb Conc 33.1 g/gl (32-36); Mean Corpuscular Hgb 29.2 pg (27.0-32.0); Mean Corpuscular Volume 88.2 fL (81-99); Mean Platelet Vol. 9.2 fl (6.2-12.0); Monocyte# 0.74 X10^3/uL; Monocyte% 10.9 % (0-10); Neutrophil % 66.6 % (47-70); Platelet Count 464 K/mm3 (150-450); RBC Distribution Width CV 14.8 % (11.6-14.6); RBC Distribution Width SD 47.2 fl (35.1-43.9); Red Blood Count 4.25 M/mm3 (4.2-5.4); White Blood Count 6.8 K/mm3 (4.4-11.0)
[2017-11-15 08:37] LABS: POSITIVE COUNT NO; POSITIVE DIFFERENTIAL NO; POSITIVE MORPHOLOGY NO
[2017-11-15 08:44] LABS: Anion Gap 8 (5-15); BUN 8 mg/dL (7-18); BUN/Creat Ratio 14.7 RATIO (10-20); Calcium,Total 8.3 mg/dL (8.5-10.1); Chloride 106 mmol/L (98-107); Creatinine, Serum 0.55 mg/dL (0.55-1.02); EST Glomerular Filtration Rate 117 mL/min (>60); Est Glom Filt Rate - Afr Amer 141 mL/min (>60); Glucose 97 mg/dL (74-106); Potassium 3.7 mmol/L (3.5-5.1); Sodium Level 138 mmol/L (136-145)
[2017-11-15] MEDS: Calcium Carb/Vitamin D 1 TABLET Tablet PO ×2 (09:04→16:34)
[2017-11-15] MEDS: Multivitamins,Ther W-Minerals Tablet 1 TABLET PO (09:04)
[2017-11-15] MEDS: Tuberculin,Purif.prot.deriv. 50 TU/ML Vial 5 ML ID (11:00)
[2017-11-15 15:37] VITALS: BP 153/92; PULSE 86; RESP 18; TEMP 36.8; O2SAT 91
--- NOTE | 2017-11-15 16:20 | NURSING ---
Patient having large, loose, bloody stools. Dr. Vargas made aware, continue to monitor.
[2017-11-15 22:00] VITALS: PULSE 78; RESP 16
[2017-11-16] MEDS: Senna/Docusate Sodium 1 Tablet 2 TABLET PO (05:35)
[2017-11-16] MEDS: levoFLOXacin 500 MG Tablet PO (05:35)
[2017-11-16] MEDS: Lisinopril 40 MG Tablet PO (05:35)
[2017-11-16] MEDS: Enoxaparin 40 MG/0.4 ML Syringe SC (05:35)
[2017-11-16] MEDS: Pantoprazole Sodium 20 MG Tablet PO (05:35)
[2017-11-16] MEDS: Polyethylene Glycol 3350 17 GM PACKET PO (05:35)
[2017-11-16] MEDS: Acetaminophen 500 MG Tablet 1000 MG PO ×3 (05:36→22:16)
[2017-11-16] MEDS: metroNIDAZOLE 500 MG Tablet PO ×3 (05:37→22:16)
[2017-11-16] MEDS: Menthol/Lanolin/Calamine/Znox 113 GM Tube 1 APPLIC TOPICAL ×2 (05:41→18:09)
[2017-11-16] MEDS: Calcium Carb/Vitamin D 1 TABLET Tablet PO ×2 (09:18→18:07)
[2017-11-16] MEDS: Multivitamins,Ther W-Minerals Tablet 1 TABLET PO (09:19)
--- NOTE | 2017-11-16 11:33 | PCM.PN.RX ---
<PamJamison dolan D - Last Filed: 11/16/17 11:33> Progress Note - Pharmacy Subjective: [facility]CU Admission Objective: Allergies oxycodone [From Percocet] Adverse Reaction (Verified 11/06/17 09:42) Upset Stomach sulfamethoxazole [From Bactrim] Adverse Reaction (Verified 11/06/17 09:42) Upset Stomach trimethoprim [From Bactrim] Adverse Reaction (Verified 11/06/17 09:42) Upset Stomach Home Medications Medication Instructions Recorded Calcium Carbonate/Vitamin D3 1 each PO BID 11/06/17 [Calcium 600-Vit D3 400 Tablet] Cholecalciferol (Vitamin D3) 400 unit PO DAILY 11/06/17 [Vitamin D3] Multivits,Ca,Minerals/Iron/FA 1 each PO DAILY 11/06/17 [Women's Daily Formula Caplet] Omeprazole [Prilosec] 20 mg PO DAILY PRN 11/06/17 Vit A/Vit C/Vit E/Zinc/Copper 1 each PO DAILY 11/06/17 [Preservision Areds Softgel] Acetaminophen [Tylenol] 1,000 mg PO Q8 11/14/17 Levofloxacin [Levaquin] 500 mg PO DAILY 11/14/17 Lisinopril [Zestril] 40 mg PO DAILY 11/14/17 Mag Hydrox/Al Hydrox/Simeth 30 ml PO Q4H PRN PRN udc 11/14/17 [Mylanta II] Magnesium Hydroxide [Milk Of 30 ml PO DAILY PRN PRN udc 11/14/17 Magnesia] Metronidazole [Flagyl] 500 mg PO TID 11/14/17 Multivitamins,Ther W-Minerals 1 tablet PO DAILYCM 11/14/17 [Multivitamin With Minerals] Oxycodone [Oxyir] 5 mg PO Q4H PRN PRN #30 tab 11/14/17 Polyethylene Glycol 3350 [Miralax] 17 gm PO DAILY 11/14/17 Current Medications Generic Name Dose Route Start Last Admin Trade Name Freq PRN Reason Stop Dose Admin Acetaminophen 1,000 mg 11/14/17 22:00 11/16/17 05:36 Tylenol PO 1,000 mg Q8 VIN[facility] Administration Al Hydroxide/Mg Hydroxide 30 ml 11/14/17 15:05 Mylanta Ii PO Q4H PRN PRN DYSPEPSIA Bisacodyl 10 mg 11/14/17 15:13 Dulcolax RECTAL DAILY PRN CONSTIPATION Calamine/Phenol 1 applic 11/14/17 22:00 11/16/17 05:41 Calmoseptine Ointment TOPICAL 1 applicatio BID [facility] Administration Protocol Calcium/Vitamin D 1 tablet 11/14/17 17:00 11/16/17 09:18 Os-Finn 500mg + D PO 1 tablet BIDCM [facility] Administration Enoxaparin Sodium 40 mg 11/15/17 06:00 11/16/17 05:35 Lovenox SC 40 mg DAILY@0600 [facility] Administration Levofloxacin 500 mg 11/15/17 06:00 11/16/17 05:35 Levaquin Tablet PO 11/19/17 06:01 500 mg DAILY [facility] Administration Lisinopril 40 mg 11/15/17 06:00 11/16/17 05:35 Zestril PO 40 mg DAILY [facility] Administration Metronidazole 500 mg 11/14/17 22:00 11/16/17 05:37 Flagyl PO 11/18/17 14:01 500 mg TID [facility] Administration Multivitamins/Minerals 1 tablet 11/15/17 08:00 11/16/17 09:19 [facility] Multivitamins/Minerals 1 tablet 11/15/17 08:00 11/16/17 09:18 [facility] Administration Nutritional Formula (Lactose Free) 120 ml 11/14/17 17:00 11/16/17 05:41 Ensure Enlive PO Not Given 4X/DAY [facility] Oxycodone HCl 5 mg 11/14/17 15:05 Oxyir PO Q4H PRN PRN SEVERE PAIN (6-10/10) Pantoprazole Sodium 20 mg 11/15/17 06:00 11/16/17 05:35 Protonix PO 20 mg DAILY [facility] Administration Polyethylene Glycol 17 gm 11/15/17 06:00 11/16/17 05:35 Miralax PO 17 gm DAILY [facility] Administration Senna/Docusate Sodium 2 tablet 11/14/17 18:00 11/16/17 05:35 Senokot-S, Brittany-Colace PO 2 tablet BID [facility] Administration Tuberculin PPD 5 tu 11/22/17 10:00 Tubersol, Aplisol, Ppd ID 11/22/17 10:01 X1 ONE Problem List Fall (Acute) Back pain (Acute) T12 compression fracture (Acute) Constipation (Acute) Ischemic colitis (Acute) Vital Signs Temp Pulse Resp BP Pulse Ox 98.3 F 78 16 153/92 H 91 11/15/17 15:37 11/15/17 22:00 11/15/17 22:00 11/15/17 15:37 11/15/17 15:37 Oxygen Delivery Method Room Air Weight: 68.991 kg Body Mass Index (BMI) 30.7 Sodium 138 mmol/L (136-145) 11/15/17 08:17 Potassium 3.7 mmol/L (3.5-5.1) 11/15/17 08:17 Chloride 106 mmol/L (98-107) 11/15/17 08:17 Carbon Dioxide 24.0 mmol/L (21.0-32.0) 11/15/17 08:17 Anion Gap 8 (5-15) 11/15/17 08:17 BUN 8 mg/dL (7-18) 11/15/17 08:17 Creatinine 0.55 mg/dL (0.55-1.02) 11/15/17 08:17 Est GFR (MDRD) Af Amer 141 mL/min (>60) 11/15/17 08:17 Est GFR (MDRD) Non-Af 117 mL/min (>60) 11/15/17 08:17 BUN/Creatinine Ratio 14.7 RATIO (10-20) 11/15/17 08:17 Glucose 97 mg/dL (74-106) 11/15/17 08:17 Assessment/Plan: 1) Pain APAP scheduled, oxycodone for severe pain. Continue to monitor daily pain scores, prn medication use. 2) HTN Lisinopril daily. Avg BP not within goal range, K wnl, BUN/SCr at baseline. Continue to monitor BP, electrolytes, renal function. 3) ID Levofloxacin daily until 11/17, metronidazole until 11/18 for colitis. WBC wnl, afebrile. Continue to monitor s/s infection. 4) GI Pantoprazole daily, Maalox as needed. Continue to monitor prn medication use, s/s GI distress. 5) Nutrition Multivitamin, Ca/D, Ensure. Continue to monitor clinically. 6) DVT PPx Enoxaparin daily. Continue to monitor s/s bleeding/clot. Psychotropic Medications: None Unnecessary Medications: None Bowel Regimen: 7) Senna/s, PEG, prn bisacodyl. Continue to monitor prn medication use, for constipation/diarrhea. Date of Note:: 11/16/17 - Provider Comments Provider responsibility: Provider responsible to enter orders to implement recommendations <Azael Vargas Chi - Last Filed: 11/16/17 13:30> Progress Note - Pharmacy Subjective: [] Objective: Allergies oxycodone [From Percocet] Adverse Reaction (Verified 11/06/17 09:42) Upset Stomach sulfamethoxazole [From Bactrim] Adverse Reaction (Verified 11/06/17 09:42) Upset Stomach trimethoprim [From Bactrim] Adverse Reaction (Verified 11/06/17 09:42) Upset Stomach Home Medications Medication Instructions Recorded Calcium Carbonate/Vitamin D3 1 each PO BID 11/06/17 [Calcium 600-Vit D3 400 Tablet] Cholecalciferol (Vitamin D3) 400 unit PO DAILY 11/06/17 [Vitamin D3] Multivits,Ca,Minerals/Iron/FA 1 each PO DAILY 11/06/17 [Women's Daily Formula Caplet] Omeprazole [Prilosec] 20 mg PO DAILY PRN 11/06/17 Vit A/Vit C/Vit E/Zinc/Copper 1 each PO DAILY 11/06/17 [Preservision Areds Softgel] Acetaminophen [Tylenol] 1,000 mg PO Q8 11/14/17 Levofloxacin [Levaquin] 500 mg PO DAILY 11/14/17 Lisinopril [Zestril] 40 mg PO DAILY 11/14/17 Mag Hydrox/Al Hydrox/Simeth 30 ml PO Q4H PRN PRN udc 11/14/17 [Mylanta II] Magnesium Hydroxide [Milk Of 30 ml PO DAILY PRN PRN udc 11/14/17 Magnesia] Metronidazole [Flagyl] 500 mg PO TID 11/14/17 Multivitamins,Ther W-Minerals 1 tablet PO DAILYCM 11/14/17 [Multivitamin With Minerals] Oxycodone [Oxyir] 5 mg PO Q4H PRN PRN #30 tab 11/14/17 Polyethylene Glycol 3350 [Miralax] 17 gm PO DAILY 11/14/17 Current Medications Generic Name Dose Route Start Last Admin Trade Name Freq PRN Reason Stop Dose Admin Acetaminophen 1,000 mg 11/14/17 22:00 11/16/17 05:36 Tylenol PO 1,000 mg Q8 [facility] Administration Al Hydroxide/Mg Hydroxide 30 ml 11/14/17 15:05 Mylanta Ii PO Q4H PRN PRN DYSPEPSIA Bisacodyl 10 mg 11/14/17 15:13 Dulcolax RECTAL DAILY PRN CONSTIPATION Calamine/Phenol 1 applic 11/14/17 22:00 11/16/17 05:41 Calmoseptine Ointment TOPICAL 1 applicatio BID [facility] Administration Protocol Calcium/Vitamin D 1 tablet 11/14/17 17:00 11/16/17 09:18 Os[facility]Finn [facility]mg + [facility] Enoxaparin Sodium 40 mg 11/15/17 06:00 11/16/17 05:35 Lovenox SC 40 mg DAILY@0600 [facility] Administration Levofloxacin 500 mg 11/15/17 06:00 11/16/17 05:35 Levaquin Tablet PO 11/19/17 06:01 500 mg DAILY [facility] Administration Lisinopril 40 mg 11/15/17 06:00 11/16/17 05:35 Zestril PO 40 mg DAILY [facility] Administration Metronidazole 500 mg 11/14/17 22:00 11/16/17 05:37 Flagyl PO 11/18/17 14:01 500 mg TID [facility] Administration Multivitamins/Minerals 1 tablet 11/15/17 08:00 11/16/17 09:19 [facility]amin With Minerals [facility] Multivitamins/Minerals 1 tablet 11/15/17 08:00 11/16/17 09:18 [facility]uvite [facility] Administration Nutritional Formula (Lactose Free) 120 ml 11/14/17 17:00 11/16/17 12:04 Ensure Enlive PO Not Given 4X/DAY [facility] Oxycodone HCl 5 mg 11/14/17 15:05 Oxyir PO Q4H PRN PRN SEVERE PAIN (6-10/10) Pantoprazole Sodium 20 mg 11/15/17 06:00 11/16/17 05:35 Protonix PO 20 mg DAILY [facility] Administration Polyethylene Glycol 17 gm 11/15/17 06:00 11/16/17 05:35 Miralax PO 17 gm DAILY [facility] Administration Senna/Docusate Sodium 2 tablet 11/14/17 18:00 11/16/17 05:35 Senokot-S, Brittany-Colace PO 2 tablet BID [facility] Administration Tuberculin PPD 5 tu 11/22/17 10:00 Tubersol, Aplisol, Ppd ID 11/22/17 10:01 X1 ONE Problem List Fall (Acute) Back pain (Acute) T12 compression fracture (Acute) Constipation (Acute) Ischemic colitis (Acute) Vital Signs Temp Pulse Resp BP Pulse Ox 98.3 F 78 16 153/92 H 91 11/15/17 15:37 11/15/17 22:00 11/15/17 22:00 11/15/17 15:37 11/15/17 15:37 Oxygen Delivery Method Room Air Weight: 68.991 kg Body Mass Index (BMI) 30.7 Sodium 138 mmol/L (136-145) 11/15/17 08:17 Potassium 3.7 mmol/L (3.5-5.1) 11/15/17 08:17 Chloride 106 mmol/L (98-107) 11/15/17 08:17 Carbon Dioxide 24.0 mmol/L (21.0-32.0) 11/15/17 08:17 Anion Gap 8 (5-15) 11/15/17 08:17 BUN 8 mg/dL (7-18) 11/15/17 08:17 Creatinine 0.55 mg/dL (0.55-1.02) 11/15/17 08:17 Est GFR (MDRD) Af Amer 141 mL/min (>60) 11/15/17 08:17 Est GFR (MDRD) Non-Af 117 mL/min (>60) 11/15/17 08:17 BUN/Creatinine Ratio 14.7 RATIO (10-20) 11/15/17 08:17 Glucose 97 mg/dL (74-106) 11/15/17 08:17 Assessment/Plan: Psychotropic Medications: Unnecessary Medications: Bowel Regimen: - Provider Comments Provider responsibility: Provider responsible to enter orders to implement recommendations Provider Comments to Recommendations by Pharmacy: Agree
--- NOTE | 2017-11-16 11:42 | PHA.CONS_ITS ---
<PamJamison dolan D - Last Filed: 11/16/17 11:33> Progress Note - Pharmacy Subjective: [facility]CU Admission Objective: Allergies oxycodone [From Percocet] Adverse Reaction (Verified 11/06/17 09:42) Upset Stomach sulfamethoxazole [From Bactrim] Adverse Reaction (Verified 11/06/17 09:42) Upset Stomach trimethoprim [From Bactrim] Adverse Reaction (Verified 11/06/17 09:42) Upset Stomach Home Medications Medication Instructions Recorded Calcium Carbonate/Vitamin D3 1 each PO BID 11/06/17 [Calcium 600-Vit D3 400 Tablet] Cholecalciferol (Vitamin D3) 400 unit PO DAILY 11/06/17 [Vitamin D3] Multivits,Ca,Minerals/Iron/FA 1 each PO DAILY 11/06/17 [Women's Daily Formula Caplet] Omeprazole [Prilosec] 20 mg PO DAILY PRN 11/06/17 Vit A/Vit C/Vit E/Zinc/Copper 1 each PO DAILY 11/06/17 [Preservision Areds Softgel] Acetaminophen [Tylenol] 1,000 mg PO Q8 11/14/17 Levofloxacin [Levaquin] 500 mg PO DAILY 11/14/17 Lisinopril [Zestril] 40 mg PO DAILY 11/14/17 Mag Hydrox/Al Hydrox/Simeth 30 ml PO Q4H PRN PRN udc 11/14/17 [Mylanta II] Magnesium Hydroxide [Milk Of 30 ml PO DAILY PRN PRN udc 11/14/17 Magnesia] Metronidazole [Flagyl] 500 mg PO TID 11/14/17 Multivitamins,Ther W-Minerals 1 tablet PO DAILYCM 11/14/17 [Multivitamin With Minerals] Oxycodone [Oxyir] 5 mg PO Q4H PRN PRN #30 tab 11/14/17 Polyethylene Glycol 3350 [Miralax] 17 gm PO DAILY 11/14/17 Current Medications Generic Name Dose Route Start Last Admin Trade Name Freq PRN Reason Stop Dose Admin Acetaminophen 1,000 mg 11/14/17 22:00 11/16/17 05:36 Tylenol PO 1,000 mg Q8 VINCE Administration Al Hydroxide/Mg Hydroxide 30 ml 11/14/17 15:05 Mylanta Ii PO Q4H PRN PRN DYSPEPSIA Bisacodyl 10 mg 11/14/17 15:13 Dulcolax RECTAL DAILY PRN CONSTIPATION Calamine/Phenol 1 applic 11/14/17 22:00 11/16/17 05:41 Calmoseptine Ointment TOPICAL 1 applicatio BID [facility] Administration Protocol Calcium/Vitamin D 1 tablet 11/14/17 17:00 11/16/17 09:18 Os-Finn 500mg + D PO 1 tablet BIDCM [facility] Administration Enoxaparin Sodium 40 mg 11/15/17 06:00 11/16/17 05:35 Lovenox SC 40 mg DAILY@0600 [facility] Administration Levofloxacin 500 mg 11/15/17 06:00 11/16/17 05:35 Levaquin Tablet PO 11/19/17 06:01 500 mg DAILY [facility] Administration Lisinopril 40 mg 11/15/17 06:00 11/16/17 05:35 Zestril PO 40 mg DAILY [facility] Administration Metronidazole 500 mg 11/14/17 22:00 11/16/17 05:37 Flagyl PO 11/18/17 14:01 500 mg TID [facility] Administration Multivitamins/Minerals 1 tablet 11/15/17 08:00 11/16/17 09:19 Multivitamin With Minerals [facility] Administration Multivitamins/Minerals 1 tablet 11/15/17 08:00 11/16/17 09:18 Ocuvite PO 1 tablet [facility] Administration Nutritional Formula (Lactose Free) 120 ml 11/14/17 17:00 11/16/17 05:41 Ensure Enlive PO Not Given 4X/DAY [facility] Oxycodone HCl 5 mg 11/14/17 15:05 Oxyir PO Q4H PRN PRN SEVERE PAIN (6-10/10) Pantoprazole Sodium 20 mg 11/15/17 06:00 11/16/17 05:35 Protonix PO 20 mg DAILY [facility] Administration Polyethylene Glycol 17 gm 11/15/17 06:00 11/16/17 05:35 Miralax PO 17 gm DAILY [facility] Administration Senna/Docusate Sodium 2 tablet 11/14/17 18:00 11/16/17 05:35 Senokot-S, Brittany-Colace PO 2 tablet BID [facility] Administration Tuberculin PPD 5 tu 11/22/17 10:00 Tubersol, Aplisol, Ppd ID 11/22/17 10:01 X1 ONE Problem List Fall (Acute) Back pain (Acute) T12 compression fracture (Acute) Constipation (Acute) Ischemic colitis (Acute) Vital Signs Temp Pulse Resp BP Pulse Ox 98.3 F 78 16 153/92 H 91 11/15/17 15:37 11/15/17 22:00 11/15/17 22:00 11/15/17 15:37 11/15/17 15:37 Oxygen Delivery Method Room Air Weight: 68.991 kg Body Mass Index (BMI) 30.7 Sodium 138 mmol/L (136-145) 11/15/17 08:17 Potassium 3.7 mmol/L (3.5-5.1) 11/15/17 08:17 Chloride 106 mmol/L (98-107) 11/15/17 08:17 Carbon Dioxide 24.0 mmol/L (21.0-32.0) 11/15/17 08:17 Anion Gap 8 (5-15) 11/15/17 08:17 BUN 8 mg/dL (7-18) 11/15/17 08:17 Creatinine 0.55 mg/dL (0.55-1.02) 11/15/17 08:17 Est GFR (MDRD) Af Amer 141 mL/min (>60) 11/15/17 08:17 Est GFR (MDRD) Non-Af 117 mL/min (>60) 11/15/17 08:17 BUN/Creatinine Ratio 14.7 RATIO (10-20) 11/15/17 08:17 Glucose 97 mg/dL (74-106) 11/15/17 08:17 Assessment/Plan: 1) Pain APAP scheduled, oxycodone for severe pain. Continue to monitor daily pain scores, prn medication use. 2) HTN Lisinopril daily. Avg BP not within goal range, K wnl, BUN/SCr at baseline. Continue to monitor BP, electrolytes, renal function. 3) ID Levofloxacin daily until 11/17, metronidazole until 11/18 for colitis. WBC wnl , afebrile. Continue to monitor s/s infection. 4) GI Pantoprazole daily, Maalox as needed. Continue to monitor prn medication use , s/s GI distress. 5) Nutrition Multivitamin, Ca/D, Ensure. Continue to monitor clinically. 6) DVT PPx Enoxaparin daily. Continue to monitor s/s bleeding/clot. Psychotropic Medications: None Unnecessary Medications: None Bowel Regimen: 7) Senna/s, PEG, prn bisacodyl. Continue to monitor prn medication use, for constipation/diarrhea. Date of Note:: 11/16/17 - Provider Comments Provider responsibility: Provider responsible to enter orders to implement recommendations <Azael Vargas Chi - Last Filed: 11/16/17 13:30> Progress Note - Pharmacy Subjective: [] Objective: Allergies oxycodone [From Percocet] Adverse Reaction (Verified 11/06/17 09:42) Upset Stomach sulfamethoxazole [From Bactrim] Adverse Reaction (Verified 11/06/17 09:42) Upset Stomach trimethoprim [From Bactrim] Adverse Reaction (Verified 11/06/17 09:42) Upset Stomach Home Medications Medication Instructions Recorded Calcium Carbonate/Vitamin D3 1 each PO BID 11/06/17 [Calcium 600-Vit D3 400 Tablet] Cholecalciferol (Vitamin D3) 400 unit PO DAILY 11/06/17 [Vitamin D3] Multivits,Ca,Minerals/Iron/FA 1 each PO DAILY 11/06/17 [Women's Daily Formula Caplet] Omeprazole [Prilosec] 20 mg PO DAILY PRN 11/06/17 Vit A/Vit C/Vit E/Zinc/Copper 1 each PO DAILY 11/06/17 [Preservision Areds Softgel] Acetaminophen [Tylenol] 1,000 mg PO Q8 11/14/17 Levofloxacin [Levaquin] 500 mg PO DAILY 11/14/17 Lisinopril [Zestril] 40 mg PO DAILY 11/14/17 Mag Hydrox/Al Hydrox/Simeth 30 ml PO Q4H PRN PRN udc 11/14/17 [Mylanta II] Magnesium Hydroxide [Milk Of 30 ml PO DAILY PRN PRN udc 11/14/17 Magnesia] Metronidazole [Flagyl] 500 mg PO TID 11/14/17 Multivitamins,Ther W-Minerals 1 tablet PO DAILYCM 11/14/17 [Multivitamin With Minerals] Oxycodone [Oxyir] 5 mg PO Q4H PRN PRN #30 tab 11/14/17 Polyethylene Glycol 3350 [Miralax] 17 gm PO DAILY 11/14/17 Current Medications Generic Name Dose Route Start Last Admin Trade Name Freq PRN Reason Stop Dose Admin Acetaminophen 1,000 mg 11/14/17 22:00 11/16/17 05:36 Tylenol PO 1,000 mg Q8 [facility] Administration Al Hydroxide/Mg Hydroxide 30 ml 11/14/17 15:05 Mylanta Ii PO Q4H PRN PRN DYSPEPSIA Bisacodyl 10 mg 11/14/17 15:13 Dulcolax RECTAL DAILY PRN CONSTIPATION Calamine/Phenol 1 applic 11/14/17 22:00 11/16/17 05:41 Calmoseptine Ointment TOPICAL 1 applicatio BID [facility] Administration Protocol Calcium/Vitamin D 1 tablet 11/14/17 17:00 11/16/17 09:18 Os-Finn 500mg + D [facility] Administration Enoxaparin Sodium 40 mg 11/15/17 06:00 11/16/17 05:35 Lovenox SC 40 mg DAILY@0600 [facility] Administration Levofloxacin 500 mg 11/15/17 06:00 11/16/17 05:35 Levaquin Tablet PO 11/19/17 06:01 500 mg DAILY [facility] Administration Lisinopril 40 mg 11/15/17 06:00 11/16/17 05:35 Zestril PO 40 mg DAILY [facility] Administration Metronidazole 500 mg 11/14/17 22:00 11/16/17 05:37 Flagyl PO 11/18/17 14:01 500 mg TID [facility] Administration Multivitamins/Minerals 1 tablet 11/15/17 08:00 11/16/17 09:19 Multivitamin With Minerals PO [facility] Administration Multivitamins/Minerals 1 tablet 11/15/17 08:00 11/16/17 09:18 Ocuvite PO 1 tablet [facility] Administration Nutritional Formula (Lactose Free) 120 ml 11/14/17 17:00 11/16/17 12:04 Ensure Enlive PO Not Given 4X/DAY [facility] Oxycodone HCl 5 mg 11/14/17 15:05 Oxyir PO Q4H PRN PRN SEVERE PAIN (6-10/10) Pantoprazole Sodium 20 mg 11/15/17 06:00 11/16/17 05:35 Protonix PO 20 mg DAILY [facility] Administration Polyethylene Glycol 17 gm 11/15/17 06:00 11/16/17 05:35 Miralax PO 17 gm DAILY [facility] Administration Senna/Docusate Sodium 2 tablet 11/14/17 18:00 11/16/17 05:35 Senokot-S, Brittany-Colace PO 2 tablet BID [facility] Administration Tuberculin PPD 5 tu 11/22/17 10:00 Tubersol, Aplisol, Ppd ID 11/22/17 10:01 X1 ONE Problem List Fall (Acute) Back pain (Acute) T12 compression fracture (Acute) Constipation (Acute) Ischemic colitis (Acute) Vital Signs Temp Pulse Resp BP Pulse Ox 98.3 F 78 16 153/92 H 91 11/15/17 15:37 11/15/17 22:00 11/15/17 22:00 11/15/17 15:37 11/15/17 15:37 Oxygen Delivery Method Room Air Weight: 68.991 kg Body Mass Index (BMI) 30.7 Sodium 138 mmol/L (136-145) 11/15/17 08:17 Potassium 3.7 mmol/L (3.5-5.1) 11/15/17 08:17 Chloride 106 mmol/L (98-107) 11/15/17 08:17 Carbon Dioxide 24.0 mmol/L (21.0-32.0) 11/15/17 08:17 Anion Gap 8 (5-15) 11/15/17 08:17 BUN 8 mg/dL (7-18) 11/15/17 08:17 Creatinine 0.55 mg/dL (0.55-1.02) 11/15/17 08:17 Est GFR (MDRD) Af Amer 141 mL/min (>60) 11/15/17 08:17 Est GFR (MDRD) Non-Af 117 mL/min (>60) 11/15/17 08:17 BUN/Creatinine Ratio 14.7 RATIO (10-20) 11/15/17 08:17 Glucose 97 mg/dL (74-106) 11/15/17 08:17 Assessment/Plan: Psychotropic Medications: Unnecessary Medications: Bowel Regimen: - Provider Comments Provider responsibility: Provider responsible to enter orders to implement recommendations Provider Comments to Recommendations by Pharmacy: Agree
[2017-11-16 16:00] VITALS: BP 164/96; PULSE 92; RESP 20; TEMP 36.4; O2SAT 98
[2017-11-17] MEDS: Acetaminophen 500 MG Tablet 1000 MG PO ×3 (05:37→21:21)
[2017-11-17] MEDS: Enoxaparin 40 MG/0.4 ML Syringe SC (05:37)
[2017-11-17] MEDS: metroNIDAZOLE 500 MG Tablet PO ×3 (05:37→21:21)
[2017-11-17] MEDS: Pantoprazole Sodium 20 MG Tablet PO (05:37)
[2017-11-17] MEDS: Lisinopril 40 MG Tablet PO (05:37)
[2017-11-17] MEDS: levoFLOXacin 500 MG Tablet PO (05:37)
[2017-11-17] MEDS: Menthol/Lanolin/Calamine/Znox 113 GM Tube 1 APPLIC TOPICAL ×2 (05:44→18:18)
[2017-11-17] MEDS: Mag Hydrox/Al Hydrox/Simeth 30 ML UDC PO (06:53)
[2017-11-17] MEDS: Calcium Carb/Vitamin D 1 TABLET Tablet PO ×2 (08:59→18:16)
[2017-11-17] MEDS: Multivitamins,Ther W-Minerals Tablet 1 TABLET PO (08:59)
[2017-11-17 15:34] VITALS: BP 150/68; PULSE 85; RESP 18; TEMP 36.3; O2SAT 95
[2017-11-18] MEDS: Pantoprazole Sodium 20 MG Tablet PO (06:02)
[2017-11-18] MEDS: Acetaminophen 500 MG Tablet 1000 MG PO ×3 (06:02→21:32)
[2017-11-18] MEDS: levoFLOXacin 500 MG Tablet PO (06:02)
[2017-11-18] MEDS: Lisinopril 40 MG Tablet PO (06:02)
[2017-11-18] MEDS: Enoxaparin 40 MG/0.4 ML Syringe SC (06:02)
[2017-11-18] MEDS: metroNIDAZOLE 500 MG Tablet PO ×2 (06:03→14:12)
[2017-11-18] MEDS: Menthol/Lanolin/Calamine/Znox 113 GM Tube 1 APPLIC TOPICAL ×2 (06:11→17:20)
[2017-11-18] MEDS: Calcium Carb/Vitamin D 1 TABLET Tablet PO ×2 (09:05→17:20)
[2017-11-18] MEDS: Multivitamins,Ther W-Minerals Tablet 1 TABLET PO (09:05)
[2017-11-18 10:00] VITALS: PULSE 93; RESP 18; O2SAT 96
[2017-11-18 16:00] VITALS: BP 148/91; PULSE 85; RESP 18; TEMP 36.8; O2SAT 96
[2017-11-18] MEDS: Senna/Docusate Sodium 1 Tablet 2 TABLET PO (17:20)
[2017-11-19] MEDS: Acetaminophen 500 MG Tablet 1000 MG PO ×3 (06:21→21:50)
[2017-11-19] MEDS: Pantoprazole Sodium 20 MG Tablet PO (06:22)
[2017-11-19] MEDS: Enoxaparin 40 MG/0.4 ML Syringe SC (06:22)
[2017-11-19] MEDS: Senna/Docusate Sodium 1 Tablet 2 TABLET PO ×2 (06:22→17:14)
[2017-11-19] MEDS: Lisinopril 40 MG Tablet PO (06:22)
[2017-11-19] MEDS: levoFLOXacin 500 MG Tablet PO (06:22)
[2017-11-19] MEDS: Menthol/Lanolin/Calamine/Znox 113 GM Tube 1 APPLIC TOPICAL ×2 (06:28→17:17)
[2017-11-19] MEDS: Calcium Carb/Vitamin D 1 TABLET Tablet PO ×2 (08:20→17:14)
[2017-11-19] MEDS: Multivitamins,Ther W-Minerals Tablet 1 TABLET PO (08:20)
--- NOTE | 2017-11-19 10:52 | CASEMGMT ---
Addendum entered by Lorraine Cheek 11/19/17 16:48: Resident is now asking about outpatient physical therapy at [facility] but would only be able to do the outpatient therapy is cleared to drive. Dr Vargas notified of resident questions about whether or not resident will be able to drive at discharge. Resident aware that resident will need to be cleared by to drive. Resident plans to discharge home alone with home health vs. outpatient physical therapy. Original Note: Plan of care meeting held. Resident present, no support person present. Resident plans to discharge home alone at time of discharge. Resident requesting for discharge date to be set for 11/24/17. Team is agreeable to 11/24/17 as a discharge date. Therapy recommending for resident to continue with physical and occupational therapy within the home at time of discharge. Resident requesting for home health services to be set up through [facility] ([facility]). Resident to continue with further care and treatment on the Transitional Care Unit until time of discharge. Support given. Proposed discharge date: 11/24/17 PLAN: Discharge home alone with home health services. Will continue to follow. Lorraine CORONA, NPS
[2017-11-19 16:00] VITALS: BP 148/78; PULSE 87; RESP 18; TEMP 36.5; O2SAT 97
--- NOTE | 2017-11-19 16:08 | CASEMGMT ---
Brief interview for mental status (BIMS) and resident mood interview (PHQ-9) completed on this day. BIMS score 14/15. PHQ-9 score 09/30
--- NOTE | 2017-11-19 19:39 | PCM.DC ---
- Discharge Diagnoses Current Active Problems: Current Active and Chronic Problems Fall (Acute) Back pain (Acute) T12 compression fracture (Acute) Constipation (Acute) Ischemic colitis (Acute) You will use the following diet at home:: No restrictions, Regular Your food should be the consistency of: Regular Your liquids should be the consistency of: Regular/Thin Discharge Activity: Return to Normal Activity, May Not Drive, May Shower, Use Walker Weight Bearing Status: Weight bearing as tolerated Call your doctor if you observe: Fever of 101 or Higher, Inability to urinate, Inability to have a bowel movement, Shortness of breath, Chest pain, Uncontrolled pain Allergies/Adverse Reactions: Allergies oxycodone [From Percocet] Adverse Reaction (Verified 11/06/17 09:42) Upset Stomach sulfamethoxazole [From Bactrim] Adverse Reaction (Verified 11/06/17 09:42) Upset Stomach trimethoprim [From Bactrim] Adverse Reaction (Verified 11/06/17 09:42) Upset Stomach Medications to take at Discharge Calcium Carbonate/Vitamin D3 [Calcium 600-Vit D3 400 Tablet] 1 each PO BID 11/06/17 Cholecalciferol (Vitamin D3) [Vitamin D3] 400 unit PO DAILY 11/06/17 Omeprazole [Prilosec] 20 mg PO DAILY PRN 11/06/17 Vit A/Vit C/Vit E/Zinc/Copper [Preservision Areds Softgel] 1 each PO DAILY 11/06/17 Acetaminophen [Tylenol] 1,000 mg PO Q8 11/14/17 Mag Hydrox/Al Hydrox/Simeth [Mylanta II] 30 ml PO Q4H PRN PRN udc 11/14/17 Multivitamins,Ther W-Minerals [Multivitamin With Minerals] 1 tablet PO DAILYCM 11/14/17 Lisinopril [Zestril] 40 mg PO DAILY #30 tab 11/19/17 Menthol/Lanolin/Calamine/Znox [Calmoseptine Ointment] 1 applic TOPICAL BID tube 11/19/17 The following prescriptions were given: Lisinopril [Zestril] 40 mg PO DAILY #30 tab Primary Care Physician: Jarek Alvarez MD [Primary Care Provider] - Please follow up with your Primary Care Physician in: 1 week. Please Follow Up With: Dr. Cage When: 2 weeks Please Follow Up With: Dr. Graves When: 2 weeks Please Follow Up With: Jarek Alvarez MD When: after discharge Proposed Discharge Date: 11/24/17
--- NOTE | 2017-11-19 19:41 | PCM.DC.SUM ---
Discharge Date and Diagnosis - Problem List Patient Problems: Active and Suspected Problems Fall (Acute) Back pain (Acute) T12 compression fracture (Acute) Constipation (Acute) Ischemic colitis (Acute) Date of Admission: 11/14/17 Date of Discharge: 11/24/17 - Primary Discharge Diagnosis Active and Suspected Problems Fall (Acute) Back pain (Acute) T12 compression fracture (Acute) Constipation (Acute) Ischemic colitis (Acute) - Secondary Discharge Diagnosis Chronic Problems Debility (Chronic) HTN (hypertension) (Chronic) Osteopenia (Chronic) Diverticulosis (Chronic) Hemorrhoids (Chronic) GERD (gastroesophageal reflux disease) (Chronic) Diastolic dysfunction (Chronic) Stage II Mild pulmonary hypertension (Chronic) RV pressure estimated at 35 Hospital Course and Treatment Imaging Results: 11/19/17 13:35 Diet: Cardiac: No Gastric Stimulus Type of Dietary Supplement:: Ensure Complete Is pt able to select menu?: Yes Operations: None Procedures: None Summary of Care Provided: The patient is a 72 year old Female with below past medical history hospitalized for intractable back pain secondary to acute T12 compression fracture, improved with kyphoplasty per Dr. Cage complicated by constipation, obstipation, ischemic colitis requiring decompressive colonoscopy, intravenous antibiotics, admitted to TCU for rehabilitation, strengthening, prior to discharge home alone. [] Discharge home alone, with Home Health Services. Discharge Diet: No Restrictions Discharge Activity: Return to Normal Activity, May Not Drive, May Shower, Use Walker Weight Bearing Status: Weight bearing as tolerated Call your doctor if you observe: Fever of 101 or Higher, Inability to urinate, Inability to have a bowel movement, Shortness of breath, Chest pain, Uncontrolled pain Home Medications: Medications to take at Discharge Calcium Carbonate/Vitamin D3 [Calcium 600-Vit D3 400 Tablet] 1 each PO BID 11/06/17 Cholecalciferol (Vitamin D3) [Vitamin D3] 400 unit PO DAILY 11/06/17 Omeprazole [Prilosec] 20 mg PO DAILY PRN 11/06/17 Vit A/Vit C/Vit E/Zinc/Copper [Preservision Areds Softgel] 1 each PO DAILY 11/06/17 Acetaminophen [Tylenol] 1,000 mg PO Q8 11/14/17 Mag Hydrox/Al Hydrox/Simeth [Mylanta II] 30 ml PO Q4H PRN PRN udc 11/14/17 Multivitamins,Ther W-Minerals [Multivitamin With Minerals] 1 tablet PO DAILYCM 11/14/17 Lisinopril [Zestril] 40 mg PO DAILY #30 tab 11/19/17 Menthol/Lanolin/Calamine/Znox [Calmoseptine Ointment] 1 applic TOPICAL BID tube 11/19/17 Following Prescrptions Were Given to Patient: Lisinopril [Zestril] 40 mg PO DAILY #30 tab Primary Care Physician: Jarek Alvarez MD [Primary Care Provider] - Please follow up with your Primary Care Physician in: 1 week. Please Follow Up With: Dr. Cage When: 2 weeks Please Follow Up With: Dr. Graves When: 2 weeks Please Follow Up With: Jarek Alvarez MD When: after discharge Disposition: Home with Home Health Minutes spent on discharge:: 35 Patient Condition:: Stable Medical Necessity - Tobacco Use Smoking Status: Former smoker Tobacco Use: Non-smoker Meaningful Use Info Meaningful Use Diagnoses (Choose all that apply): None applicable
--- NOTE | 2017-11-19 19:44 | HHNOTE_ITS ---
Home Health Note - Plan Overview of reason of hospitalization: The patient is a 72 year old Female with below past medical history hospitalized for intractable back pain secondary to acute T12 compression fracture, improved with kyphoplasty per Dr. Cage complicated by constipation, obstipation, ischemic colitis requiring decompressive colonoscopy, intravenous antibiotics, admitted to TCU for rehabilitation, strengthening, prior to discharge home alone. [] Discharge home alone, with Home Health Services. Problems: Patient was seen for Fall (Acute) Back pain (Acute) T12 compression fracture (Acute) Constipation (Acute) Ischemic colitis (Acute) Complete List of Medical Problems Compression fracture (Acute) Debility (Chronic) HTN (hypertension) (Chronic) Osteopenia (Chronic) Acute ischemic colitis (Acute) Obstipation (Acute) Pleural effusion (Acute) Hypoxemia (Acute) Diverticulosis (Chronic) Hemorrhoids (Chronic) GERD (gastroesophageal reflux disease) (Chronic) Hypokalemia (Acute) Former smoker (Acute) Dilated gallbladder (Acute) Diastolic dysfunction (Chronic) Mild pulmonary hypertension (Chronic) Fall (Acute) Back pain (Acute) T12 compression fracture (Acute) Constipation (Acute) Ischemic colitis (Acute) - Requirements and Reasons Disciplines Needed/Ordered: Physical Therapy Reason for Disciplines: Gait Training, Stair Training, Fall Prevention, Home Safety/Equipment Instruction, Balance and/or Posture Training, Transfer Training Related To: Shortness of Breath with Activity, Unsteady Gait/Balance, Fall Risk Patient is unable to leave the home: Without Aid of Supportive Devices (crutches , cane, wheelchair, walker), Without the assistance of another person - Additional Disciplines Additional Disciplines Needed/Ordered: Occupational Therapy
[2017-11-20] MEDS: Enoxaparin 40 MG/0.4 ML Syringe SC (06:30)
[2017-11-20] MEDS: Pantoprazole Sodium 20 MG Tablet PO (06:31)
[2017-11-20] MEDS: Acetaminophen 500 MG Tablet 1000 MG PO ×3 (06:31→21:01)
[2017-11-20] MEDS: Senna/Docusate Sodium 1 Tablet 2 TABLET PO ×2 (06:31→17:27)
[2017-11-20] MEDS: Lisinopril 40 MG Tablet PO (06:32)
[2017-11-20] MEDS: Menthol/Lanolin/Calamine/Znox 113 GM Tube 1 APPLIC TOPICAL ×2 (06:33→17:29)
--- NOTE | 2017-11-20 07:31 | PCA ---
asked pt if i could assist with elle hose pt refused having elle hose put on states that they itch pt has feed elevated in recliner
[2017-11-20] MEDS: Calcium Carb/Vitamin D 1 TABLET Tablet PO ×2 (08:53→17:27)
[2017-11-20] MEDS: Multivitamins,Ther W-Minerals Tablet 1 TABLET PO (08:54)
[2017-11-20 16:00] VITALS: BP 144/77; PULSE 94; RESP 18; TEMP 36.9; O2SAT 98
--- NOTE | 2017-11-20 17:08 | CASEMGMT ---
Social Work Spoke with resident in room. Resident is now reporting to have someone that is able to transport resident to outpatient physical therapy. Resident requesting for outpatient physical therapy to be set up through [facility]. Support given. Telephone call to [facility], outpatient physical therapy set up for 11/27/17 @ 11:45am. Order faxed. Proposed discharge date: 11/24/17 PLAN: Discharge home alone with outpatient physical therapy. Lorraine CORONA, CONTRACTS DIRECTOR
[2017-11-21] MEDS: Menthol/Lanolin/Calamine/Znox 113 GM Tube 1 APPLIC TOPICAL ×2 (06:31→16:21)
[2017-11-21] MEDS: Lisinopril 40 MG Tablet PO (06:31)
[2017-11-21] MEDS: Acetaminophen 500 MG Tablet 1000 MG PO ×3 (06:31→20:34)
[2017-11-21] MEDS: Pantoprazole Sodium 20 MG Tablet PO (06:31)
[2017-11-21] MEDS: Enoxaparin 40 MG/0.4 ML Syringe SC (06:31)
[2017-11-21] MEDS: Senna/Docusate Sodium 1 Tablet 2 TABLET PO ×2 (06:31→16:20)
[2017-11-21] MEDS: Calcium Carb/Vitamin D 1 TABLET Tablet PO ×2 (08:26→16:20)
[2017-11-21] MEDS: Multivitamins,Ther W-Minerals Tablet 1 TABLET PO (08:26)
[2017-11-21 15:08] VITALS: BP 133/71; PULSE 96; RESP 18; TEMP 36.2; O2SAT 94
[2017-11-21 21:00] VITALS: RESP 15
[2017-11-21] MEDS: Bisacodyl 10 MG Suppository RECTAL (21:46)
[2017-11-22] MEDS: Polyethylene Glycol 3350 17 GM PACKET PO (05:41)
[2017-11-22] MEDS: Acetaminophen 500 MG Tablet 1000 MG PO ×3 (05:41→20:35)
[2017-11-22] MEDS: Senna/Docusate Sodium 1 Tablet 2 TABLET PO ×2 (05:42→17:33)
[2017-11-22] MEDS: Pantoprazole Sodium 20 MG Tablet PO (05:42)
[2017-11-22] MEDS: Enoxaparin 40 MG/0.4 ML Syringe SC (05:42)
[2017-11-22] MEDS: Lisinopril 40 MG Tablet PO (05:42)
[2017-11-22] MEDS: Menthol/Lanolin/Calamine/Znox 113 GM Tube 1 APPLIC TOPICAL ×2 (05:48→17:35)
[2017-11-22 07:04] LABS: Absolute Lymphocyte Count 1.32 X10^3/ul (0.83-4.51); Absolute Neutrophil Count 3.2 X10^3/uL (2.0-7.7); Basophil# 0.06 X10^3/uL; Basophil% 1.1 % (0-1); Eosinophil# 0.37 X10^3/uL; Eosinophils% 6.7 % (0-5); Hematocrit 36.1 % (37-47); Lymphocyte # 1.32 X10^3/ul (4.0); Mean Corp Hgb Conc 33.2 g/gl (32-36); Mean Corpuscular Hgb 29.7 pg (27.0-32.0); Mean Corpuscular Volume 89.4 fL (81-99); Mean Platelet Vol. 8.6 fl (6.2-12.0); Monocyte# 0.59 X10^3/uL; Monocyte% 10.7 % (0-10); Neutrophil # 3.15 X10^3/uL (2.7-7.7); Neutrophil % 57.1 % (47-70); Platelet Count 546 K/mm3 (150-450); RBC Distribution Width CV 15.9 % (11.6-14.6); RBC Distribution Width SD 51.6 fl (35.1-43.9); Red Blood Count 4.04 M/mm3 (4.2-5.4); White Blood Count 5.5 K/mm3 (4.4-11.0)
[2017-11-22 07:05] LABS: POSITIVE COUNT NO; POSITIVE DIFFERENTIAL NO; POSITIVE MORPHOLOGY NO
[2017-11-22 07:27] LABS: Anion Gap 9 (5-15); BUN 13 mg/dL (7-18); BUN/Creat Ratio 19.8 RATIO (10-20); Calcium,Total 8.5 mg/dL (8.5-10.1); Chloride 105 mmol/L (98-107); Creatinine, Serum 0.66 mg/dL (0.55-1.02); EST Glomerular Filtration Rate 94 mL/min (>60); Est Glom Filt Rate - Afr Amer 114 mL/min (>60); Estimated Creatinine Clearance 53.67 ml/min; Glucose 88 mg/dL (74-106); Potassium 4.3 mmol/L (3.5-5.1); Sodium Level 134 mmol/L (136-145)
[2017-11-22] MEDS: Calcium Carb/Vitamin D 1 TABLET Tablet PO ×2 (08:51→17:35)
[2017-11-22] MEDS: Multivitamins,Ther W-Minerals Tablet 1 TABLET PO (08:51)
[2017-11-22 13:41] VITALS: BP 144/75; PULSE 94; RESP 16; TEMP 36.8; O2SAT 95
[2017-11-22 18:39] VITALS: PULSE 84; RESP 16; O2SAT 95
[2017-11-23] MEDS: Pantoprazole Sodium 20 MG Tablet PO (04:50)
[2017-11-23] MEDS: Lisinopril 40 MG Tablet PO (04:50)
[2017-11-23] MEDS: Senna/Docusate Sodium 1 Tablet 2 TABLET PO ×2 (04:50→17:46)
[2017-11-23] MEDS: Menthol/Lanolin/Calamine/Znox 113 GM Tube 1 APPLIC TOPICAL ×2 (04:50→17:46)
[2017-11-23] MEDS: Enoxaparin 40 MG/0.4 ML Syringe SC (04:51)
[2017-11-23] MEDS: oxyCODONE 5 MG Tablet PO (04:58)
[2017-11-23] MEDS: Multivitamins,Ther W-Minerals Tablet 1 TABLET PO (08:14)
[2017-11-23] MEDS: Calcium Carb/Vitamin D 1 TABLET Tablet PO ×2 (08:14→17:46)
[2017-11-23 13:59] VITALS: BP 111/59; PULSE 91; RESP 20; TEMP 36.4; O2SAT 94
--- NOTE | 2017-11-23 14:14 | NURSING ---
Pt had no complaint of pain and is currently refusing her 1400 dose of tylenol, she is afraid she is getting to much and doesn't want to cause liver damage. Otilia CASTANEDA aware
[2017-11-23] MEDS: Acetaminophen 500 MG Tablet 1000 MG PO (20:13)
[2017-11-24] MEDS: Acetaminophen 500 MG Tablet 1000 MG PO (05:28)
[2017-11-24] MEDS: Lisinopril 40 MG Tablet PO (05:29)
[2017-11-24] MEDS: Senna/Docusate Sodium 1 Tablet 2 TABLET PO (05:29)
[2017-11-24] MEDS: Pantoprazole Sodium 20 MG Tablet PO (05:29)
[2017-11-24] MEDS: Menthol/Lanolin/Calamine/Znox 113 GM Tube 1 APPLIC TOPICAL (05:30)
[2017-11-24] MEDS: Calcium Carb/Vitamin D 1 TABLET Tablet PO (08:30)
[2017-11-24] MEDS: Multivitamins,Ther W-Minerals Tablet 1 TABLET PO (08:30)
[2017-11-24 10:52] VITALS: BP 104/67; PULSE 94; RESP 18; TEMP 36.9; O2SAT 99
--- NOTE | 2017-11-25 12:55 | MDS.RN ---
Information for the mds was obtained from review of the clinical record, interview of resident, staff, and direct observation of resident's care.
== END 2017-11-24 13:00 | disposition home or self-care (01) | DRG 560 ==
PROVIDERS: Admitting Provider Family Medicine Geriatric Medicine; Family Provider Family Medicine; PCP Family Medicine; Visit Provider Family Medicine Geriatric Medicine
DX: M48.54XD Collapsed vertebra, not elsewhere classified, thoracic region, subsequent encounter for fracture with routine healing (principal); K55.9 Vascular disorder of intestine, unspecified; I10 Essential (primary) hypertension; K21.9 Gastro-esophageal reflux disease without esophagitis; I27.20 Pulmonary hypertension, unspecified; Z87.891 Personal history of nicotine dependence; Z79.899 Other long term (current) drug therapy; K59.00 Constipation, unspecified
CPT/HCPCS: 36415; 80048; 85025; 97110; 97116; 97162; 97166; 97530; 97535; 97802

== ENCOUNTER 2022-01-12 22:04 | Emergency (ER) | payer MEDICARE, SELFPAY ==
[2022-01-12 22:05] VITALS: BP 146/88; PULSE 97; RESP 15; TEMP 36.8; O2SAT 97; BMI 29.2
--- NOTE | 2022-01-12 22:16 | CT_ITS ---
STUDY: CT CERVICAL SPINE WITHOUT CONTRAST REASON FOR EXAM: Female, 76 years old. trauma RADIATION DOSAGE (If Supplied By Facility): CTDIvol = ( 23.95 ) mGy, DLP = ( 482.94 ) mGycm TECHNIQUE: High resolution transaxial imaging was performed without contrast material. Sagittal and coronal images were reconstructed. Individualized dose optimization techniques were used for this CT. COMPARISON: Thoracic spine series November 04, 2017. FINDINGS: Normal craniovertebral junction. Normal anterior atlantoaxial articulation. Normal odontoid process. Smooth midline defect posterior arch of C1 compatible with a normal variant. Minimal anterior listhesis C4 on C5. No fracture identified. Normal vertebral bodies and posterior osseous elements. Disc space narrowing with marginal osteophytes C5-C6 and C6-C7. Mild neural foraminal narrowing left at C5-C6. Mild depression superior endplate of T3 which appears old, but was not visualized on the prior thoracic spine series.. Normal visualized soft tissue structures. Carotid calcifications. CT/Spine Cervical without Contras IMPRESSION: Degenerative changes, no fracture is identified in the cervical spine. Old superior endplate depression at T3. Electronically Signed: Tank Zambrano MD at 23:14 EDT Reading Location ID and State: [id number] / , Service support ,
--- NOTE | 2022-01-12 22:18 | ED.VIS.FALL ---
HPI HPI - Fall History of Present Illness Chief Complaint: Fall Informant: patient Occured/Mechanism Occurred: Today and Hours Mechanism/Context: Yes same level fall and Yes trip Usually ambulates: Without assistance Pain/Injury Pain Location: head and neck Quality of Pain: Sharp Current Severity: Moderate Maximum Severity: Moderate Associated Symptoms Associated Symptoms: Negative for Parasthesias, Weakness, Loss of function, Inability to ambulate, Loss of consciousness and Amnesia Narrative Narrative: 76-year-old female was walking through her home tripped over a step stool that she had forgotten she had left out. When she fell she fell backwards hitting the back of her head and neck against the stepstool causing a laceration. No LOC. No blood thinners. Denies other complaints. Tetanus Immunization: Unknown Prior similar symptoms: No Recent Illness/Hospitalization: No PFSH PFSH Medical History Hip replacement planned Hypertension Home Medications PreserVision AREDS 1 ea PO DAILY 11/06/17 [History Last Taken 11/06/17] calcium carbonate-vitamin D3 1 ea PO BID 11/06/17 [History Last Taken 11/06/17] omeprazole 20 mg PO DAILY 11/06/17 [History Last Taken Unknown] Therems-M 1 tab PO DAILYCM 11/14/17 [History Last Taken Unknown] acetaminophen 1,000 mg PO Q8 11/14/17 [History Last Taken Unknown] lisinopril 40 mg PO DAILY #30 tab 11/19/17 [Rx Last Taken Unknown] amlodipine 5 mg PO DAILY 01/12/22 [History Last Taken Unknown] Allergy/AdvReac Type Severity Reaction Status Date / Time oxycodone [From Percocet] AdvReac Upset Verified 01/12/22 22:05 Stomach sulfamethoxazole AdvReac Upset Verified 01/12/22 22:05 [From Bactrim] Stomach trimethoprim [From Bactrim] AdvReac Upset Verified 01/12/22 22:05 Stomach Surgical History Previous back surgery Social History Smoking Status: Former smoker ROS ROS ED ROS Narrative Denies recent illness. Review of Systems ROS Unobtainable: Denies due to encephalopathy Constitutional Constitutional ED: Denies fever(s) Eyes Eyes: Denies change in vision ENT ENT ED: Denies ear pain Cardiovascular Cardiovascular: Denies chest pain Respiratory/Chest Respiratory/Chest: Denies dyspnea Gastrointestinal Gastrointestinal: Denies abdominal pain Genitourinary Genitourinary ED: Denies dysuria Musculoskeletal Musculoskeletal: Denies myalgias Integumentary Denies rash Neurologic Neurologic: Denies headache(s) Psychiatric Psychiatric: Denies depression Endocrine Endocrinology: Denies polyuria Hematologic/Lymphatic Hematologic/Lymphatic: Denies easy bruising Allergic/Immunologic Allergic/Immunologic ED: Denies urticaria EXAM Physical Exam Narrative Exam Narrative: 76-year-old female no acute distress. Vital signs are stable afebrile. H EENT exam pupils round reactive light no signs of trauma to her face. Her posterior scalp on the right side there is a small hematoma just above her neck. The neck has about a 1 inch by half inch laceration no need to be repaired. Trachea midline. She has some mild neck tenderness along the laceration. No bony deformity. Lungs are clear. Heart regular rhythm. Chest were nontender. Abdomen soft nontender. Pelvic girdle intact. Moving all 4 extremities. Normal range of motion. No deformity. 5 out of 5 preboarder strength bilaterally. Dorsi plantarflexion intact. Back nontender. Neurologically she is awake and alert with no focal motor deficits. GCS of 15. Const Vital Signs: 01/12/22 22:05 01/12/22 22:19 Temperature 98.2 F Temperature Source Temporal Pulse Rate 97 Respiratory Rate 15 Respiratory Effort Normal Non-Labored Respiratory Depth Normal Respiratory Pattern Normal Blood Pressure 146/88 H Blood Pressure Mean 107 Pulse Ox 97 Oxygen Delivery Method Room Air Room Air Positive well nourished and well developed; Negative for cachectic, contractures or unkempt General Appearance ED: well developed and NAD; Negative for unkempt, cachectic or contractures Nutritional Appearance: Negative for cachectic HEENT Reports normocephalic HEENT Narrative: Posterior scalp small hematoma about size of a quarter just above the neck. trauma, hematoma and tenderness; Negative for atraumatic Eyes PERRL and EOMs intact bilaterally General Eye ED: Negative for pale conjunctiva or scleral icterus Neck full ROM, no lymphadenopathy and supple Neck Narrative: Posterior neck laceration no need repaired. Mild tenderness. General: tenderness Chest Wall inspection of chest normal and palpation of chest normal Resp normal respiratory effort, no retractions and clear to auscultation bilaterally Auscultation: Negative for rales, rhonchi or wheezes Cardio regular rate, regular rhythm, S1 normal heart sound, S2 normal heart sound and no murmurs GI non-tender, non-distended and no masses Auscultation: normoactive bowel sounds Palpation: soft; Negative for guarding or rebound tenderness present Back/Spine no CVA tenderness General Back: Negative for CVA tenderness Cervical Spine: Negative for cervical spine tenderness Thoracic Spine / Upper Back: Negative for thoracic spinal tenderness Lumbar Spine / Lower Back: paraspinal muscle tenderness; Negative for lumbar spinal tenderness Extremity normal to inspection, full ROM, normal capillary refill and no joint enlargement Neuro oriented x3 and CN's II-XII intact bilaterally Sch[place] Coma Scale: document GCS findings Spontaneous Obeys Commands Oriented 15 Sensorium / Orientation: alert, oriented to person, oriented to place and oriented to time; Negative for orientation impaired, confused or lethargic Motor Exam: strength 5/5 throughout Psych mental status grossly normal and thought process normal Appearance: Negative for unkempt Mood & Affect: Negative for depressed Skin Skin Narrative: Posterior neck laceration. Lesions: no lesions and No lesion noted Rashes: no rashes and No rashes noted Trauma: laceration; Negative for abrasion MDM MDM MDM Narrative Medical decision making narrative: 76-year-old tripped and fell causing a laceration to the back of her neck and hitting the back of her head and neck. CAT scans being obtained of the head neck. Tetanus will be updated. Laceration of neck will be repaired. Repeat exam at 11:20 PM after I suture repaired her cervical laceration patient is doing well. CAT scans were read as negative no acute process. She will be discharged to home after the nurse cleans and dresses her wound. Radiography Diagnostic Testing: Clinical Impression(s) from Imaging Studies Cervical Spine CT 01/12/22 22:16 IMPRESSION: Degenerative changes, no fracture is identified in the cervical spine. Old superior endplate depression at T3. Electronically Signed: Tank Zambrano MD at 23:14 EDT Reading Location ID and State: [id number] / , Service support , Brain CT 01/12/22 22:32 IMPRESSION: undefined Procedures Lacerations Posterior neck laceration: Length: 1.57 in Depth: Sub Q Shape: Linear Prep: Sterile Conditions and Shure-Clens Laceration repair: Irrigated, Lidocaine and Local Number of Sutures/[place]: 4 Suture Information: Ethilon and 4-0 Comment: 4 cm laceration posterior neck just below the scalp. Linear. Involves the skin and subcu tissue. Local anesthetized with lidocaine. Cleaned with Shur-Clens. Washed with saline. Explored and irrigated with saline. Closed using four 4-0 Ethilon simple interrupted sutures. Proper hemostasis wound closure is obtained. Instructed patient on wound care and suture removal in 10 days. Discharge Plan Triage Chief Complaint: Fall ED Provider: Juan Carlos Bustillos Dx/Rx/DC Orders Clinical Impression: Fall, Head injury, Laceration Instructions: ED Head Injury (Adult), ED Laceration: All Closures Prescriptions: No Action omeprazole 20 MG capsule 20 mg PO DAILY RF: 0 calcium carbonate-vitamin D3 1 EACH tablet 1 ea PO BID RF: 0 PreserVision AREDS 1 EACH capsule 1 ea PO DAILY RF: 0 acetaminophen 500 MG tablet 1,000 mg PO Q8 RF: 0 Therems-M 1 TABLET tablet 1 tab PO DAILYCM RF: 0 lisinopril 40 MG tablet 40 mg PO DAILY Qty: 30 RF: 0 amlodipine 5 mg tablet 5 mg PO DAILY RF: 0 Primary Care Provider: Jarek Alvarez Referrals: Jarek Alvarez MD [Primary Care Provider] - 10 Day for suture removal Activity Restrictions/Additional Instructions: CAT scan of your head and neck were good. Keep the wound clean. May shower. Dry it off thoroughly when you are done. Apply antibiotic ointment daily. Ice to the area. Tylenol for pain. Stitches out in 10 days. Return if any signs of infection. Disposition Disposition: Home, Self Care
--- NOTE | 2022-01-12 22:32 | CT_ITS ---
STUDY: CT BRAIN WITHOUT CONTRAST REASON FOR EXAM: Female, 76 years old. trauma RADIATION DOSAGE (If Supplied By Facility): CTDIvol = ( 44.99 ) mGy, DLP = ( 796.11 ) mGycm TECHNIQUE: Transaxial CT imaging of the brain was performed without administration of intravenous contrast material. Individualized dose optimization techniques were used for this CT. COMPARISON: No relevant priors. FINDINGS: BRAIN: Normal carrizales/white matter differentiation. VENTRICLES: No hydrocephalus. EXTRA-AXIAL SPACES: No hemorrhages, fluid collections, or masses. CALVARIUM/SKULL BASE: Normal. FACE/SINUSES: Visualized portions normal. SOFT TISSUES: Normal. OTHER: Vascular calcifications. CONCLUSION: No intracranial hemorrhage or depressed calvarial fracture. Electronically Signed: Shant Franks MD at 23:17 EDT , CT/Brain/Head without Contrast IMPRESSION: undefined
[2022-01-12] MEDS: Lidocaine 1% (20 ml mdv) 20 ML Vial 10 ML INFILT (22:57)
[2022-01-12] MEDS: Diphth,Pertuss(Acell),Tet Vac 0.5 ML Vial IM (22:58)
[2022-01-12 23:35] VITALS: RESP 20
== END 2022-01-12 23:35 | disposition home or self-care (01) ==
PROVIDERS: Emergency Provider Emergency Medicine; PCP Family Medicine; Visit Provider Emergency Medicine
DX: S01.91XA Laceration without foreign body of unspecified part of head, initial encounter (principal); S11.91XA Laceration without foreign body of unspecified part of neck, initial encounter; I10 Essential (primary) hypertension; Z79.899 Other long term (current) drug therapy; Z23 Encounter for immunization; W10.9XXA Fall (on) (from) unspecified stairs and steps, initial encounter; Z87.891 Personal history of nicotine dependence
CPT/HCPCS: 12001; 70450; 72125; 90715; 99283

== ENCOUNTER → 2022-02-11 | Outpatient (CLI) | payer MEDICARE, SELFPAY ==
--- NOTE | 2022-02-11 09:56 | RAD_ITS ---
STUDY: X-RAY - LUMBAR SPINE REASON FOR EXAM: Female, 76 years old. Radiating low back pain TECHNIQUE: 2 view(s) of the lumbar spine were obtained. COMPARISON: None FINDINGS: Normal lumbar lordosis. There is a levoscoliosis of the lumbar spine. There is a normal alignment of the vertebrae from L1 to L4. There is a grade 1 spondylolisthesis at L4-5. There is anatomic alignment between L5 and S1. There is multilevel endplate spondylosis of the lumbar vertebrae. There is multi-level degenerative disc disease with multi-level disc space narrowing. There is no demonstrated acute fracture, vertebroplasty at T12.. The soft tissue structures are unremarkable. RAD/Lumbar Spine 2 or 3 Views IMPRESSION: Degenerative changes of the spine, as detailed above. No demonstrated acute fracture, vertebroplasty at T12 Levoscoliosis Diffuse atherosclerosis Electronically Signed: Burke Savage MD at 13:28 EDT ,
== END | disposition home or self-care (01) ==
LOC: RAD 09:54
PROVIDERS: PCP Family Medicine; Referring Provider Anesthesiology Pain Medicine; Visit Provider Anesthesiology Pain Medicine
DX: M47.816 Spondylosis without myelopathy or radiculopathy, lumbar region (principal); I70.90 Unspecified atherosclerosis
CPT/HCPCS: 72100

== ENCOUNTER 2022-06-06 15:54 | Emergency (ER) | payer MEDICARE, SELFPAY ==
[2022-06-06 15:57] VITALS: BP 122/104; PULSE 78; RESP 16; TEMP 36.6; O2SAT 100; BMI 28.9
--- NOTE | 2022-06-06 17:44 | CT_ITS ---
STUDY: CT BRAIN WITHOUT CONTRAST REASON FOR EXAM: Female, 77 years old. Closed head trauma. Venous injury suspected. RADIATION DOSAGE (If Supplied By Facility): CTDIvol = ( ) mGy, DLP = ( ) mGycm TECHNIQUE: Transaxial CT imaging of the brain was performed without administration of intravenous contrast material. Individualized dose optimization techniques were used for this CT. COMPARISON: January 12, 2022. FINDINGS: There is soft tissue hematoma in the left frontal region. Normal calvarium. Normal size ventricles and extra-axial spaces for the patient''s age. There are areas of decreased attenuation within the white matter tracts of the supratentorial brain, consistent with microvascular disease changes. Normal basal ganglia and thalami. Normal brainstem. Normal cerebellum. There is no intracranial hemorrhage. There are no findings of an acute ischemic infarction. Normal visualized paranasal sinuses. CT/Brain/Head without Contrast IMPRESSION: 1. Stable chronic involutional changes. There is no acute intracranial or calvarial abnormality. 2. Soft tissue injury to the left frontal region. Electronically Signed: Be Leary DO at 18:16 EDT Reading Location ID and State: [address] [place] [address] Tel [phone], Service support ,
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
[2022-06-06 19:27] VITALS: BP 118/65; PULSE 106; RESP 18; O2SAT 97
== END 2022-06-06 19:28 | disposition home or self-care (01) ==
PROVIDERS: Emergency Provider Emergency Medicine; PCP Family Medicine; Visit Provider Emergency Medicine
DX: S06.0X1A Concussion with loss of consciousness of 30 minutes or less, initial encounter (principal); I10 Essential (primary) hypertension; S00.33XA Contusion of nose, initial encounter; Z87.891 Personal history of nicotine dependence; Y04.8XXA Assault by other bodily force, initial encounter
CPT/HCPCS: 70450; 99282